=== PATIENT | male | born 1950 | race Caucasian/White ===

== ENCOUNTER 2016-07-21 08:57 | Inpatient (IN) | payer MEDICARE, MEDICAID ==
[~2016-07-21] VITALS: Ht 165.1 cm; Wt 46.5 kg
[~2016-07-21 08:57] MED LIST: /AUGM875TA OR; /WARF25TA PO; ACET500C OR; ACET500C PO; ACET50TAOT PO; ACET65TA OR; ALBUTEROL INH; ARIC10TA OR; ARIC5TAB PO; ARTISOL10 OU; BACT2CRE EX; BAG BALM TOP; CALC600T27 PO; CALCCHW12 PO; CEFT250T8 PO; CEFT500T3 PO; CELE10TA PO; CIPR25SS OR; CLON0.5T OR; CLON0.5T PO; COAL TAR TOP; DOXY100C PO; DULC10SU2 PR; FLEEENE4 PR; LACRI-LUBE OU; LIDO5DIS TOP; LIPI10TA PO; MILKSUS OR; MILKSUS PO; MIRA3350 PO; MIRA33504 PO; MULTCAP PO; MULTIVIT PO; NAME10TA PO; NYST100024 TOP; NYST10PW TOP; OSEL75CA PO; SALINE NASAL SPRAY; SENN8.6C PO; SENN8.6T28 PO; SENO8.6T5 OR; SENO8.6T5 PO; TRAZ100T OR; TRAZ50TA4 PO; TYLE650T30 PO; VANC12CA OR; VIBR100C PO; VIMP50TA3 PO; VIT D 2000 PO; VITA100037 PO; VITA400C OR; VITAMIN D PO; VITAMIN E PO; VITMTA PO; XOPE1.252 IN; [UNRECOGNIZED DRUG - CODE] OU; [UNRECOGNIZED DRUG - OTHER] TOP; anexsia PO; dulcolax PR; fleet PR; namenda PO; senekot PO; vimpat PO
[2016-07-21 09:36] LABS: ABG BASE EXCESS -1.2 (-2.0-2.0); ABG DEVICE NASAL CANN; ABG HCO3 23.5 MEQ/L (22.0-26.0); ABG PARTIAL PRESSURE O2 73.3 mmHg (75.0-100.0); ABG STANDARD HCO3 23.4 MEQ/L (22.0-26.0); ABG TOTAL CO2 24.7 MEQ/L (23.0-31.0); ABG pH (ARTERIAL) 7.397 UNITS (7.350-7.450)
[2016-07-21] MEDS ORDERED: [UNRECOGNIZED DRUG - CODE] OU (10:05)
[2016-07-21] MEDS ORDERED: ACETAMINOPHEN 650 MG SUPP As Ordered ONE (10:08)
--- NOTE | 2016-07-21 10:08 | REP ---
PORTABLE CHEST X-RAY: Single AP view. HISTORY: Hypoxia and cough. Comparison chest x-ray June 14, 2016. FINDINGS: The patient is rotated somewhat to the left. Interstitial markings are increased in both bases similar to the prior study consistent with some degree of interstitial fibrosis. The heart is not enlarged. There is increased density in the right infrahilar region which may be an infiltrate versus mass. There is diffuse osteopenia. Degenerative changes are seen in the shoulders. IMPRESSION: Increased interstitial markings in the bases bilaterally. Fibrosis versus edema. There is increased density in the right infrahilar region as well. Infiltrate versus mass lesion. Signed by Lalit Beard MD 07/21/2016 11:03 A
[2016-07-21] MEDS ORDERED: [UNRECOGNIZED DRUG - OTHER] TOP (10:09)
[2016-07-21] MEDS ORDERED: VITA-122 PO (10:12)
[2016-07-21 10:20] LABS: MEAN CORPUSCULAR HEMOGLOBIN 33.7 pg (27.0-33.0); MEAN CORPUSCULAR HGB CONC 32.5 g/dl (32.0-36.5); MEAN CORPUSCULAR VOLUME 103.5 fl (80.0-96.0); PLATELET COUNT, AUTOMATED 166 k/mm3 (150-450); WHITE BLOOD COUNT 7.5 K/mm3 (4.0-10.0)
[2016-07-21 10:28] LABS: INR 1.02
[2016-07-21 10:36] LABS: ALBUMIN 2.8 GM/DL (3.2-5.2); ALKALINE PHOSPHATASE 61 U/L (45-117); ALT/SGPT 18 U/L (12-78); AMYLASE 47 U/L (25-115); ANION GAP 9 MEQ/L (8-16); AST/SGOT 21 U/L (15-37); BILIRUBIN,DIRECT 0.2 MG/DL (0.0-0.2); BILIRUBIN,TOTAL 0.9 MG/DL (0.2-1.0); BLOOD UREA NITROGEN 17 MG/DL (7-18); CARBON DIOXIDE LEVEL 27 MEQ/L (21-32); CHLORIDE LEVEL 106 MEQ/L (98-107); CREATININE FOR GFR 0.92 MG/DL (0.70-1.30); GLOMERULAR FILTRATION RATE > 60.0 (>49); GLUCOSE, FASTING 100 MG/DL (80-110); POTASSIUM SERUM 3.9 MEQ/L (3.5-5.1); SODIUM LEVEL 142 MEQ/L (136-145); TOTAL PROTEIN 6.3 GM/DL (6.4-8.2)
[2016-07-21] MEDS ORDERED: CEFEPIME INJ 2 GM VIAL (MAXIPIME) (J0692) As Ordered ONE (10:36)
[2016-07-21 10:58] LABS: BANDS 5 % (< 11); BASOPHILS 1 % (0-4)
--- NOTE | 2016-07-21 11:06 | REP ---
CT BRAIN WITHOUT CONTRAST: HISTORY: Altered mental status. Comparison CT study is from March 19, 2014. FINDINGS: Bone window settings show no acute abnormality. There is moderate diffuse cerebral atrophy and concordant ventricular enlargement. There is no evidence of intracranial hemorrhage. No extra-axial fluid collection is seen. No mass, infarct or midline shift is seen. IMPRESSION: Moderate diffuse atrophy. Vascular calcification. No acute intracranial lesion. Signed by Lalit Beard MD 07/21/2016 12:09 P
[2016-07-21] MEDS ORDERED: IPRATROPIUM 0.5MG/ALBUTEROL 2.5MG INH SOL UD 3ML (DUONEB)(J7620) NEB PRN (14:15)
[2016-07-21] MEDS ORDERED: BISACODYL 10 MG SUPP PR PRN (14:15)
[2016-07-21] MEDS ORDERED: MIRALAX *UNIT DOSE* 17GM PACKET PO PRN (14:15)
[2016-07-21] MEDS ORDERED: SENNA 8.6 MG TAB (SENOKOT) PO PRN (14:15)
--- NOTE | 2016-07-21 14:32 | ECGEPIP ---
Stationary ECG Study [facility] - ED Test Date: 2016-07-21 Pat Name: MARY BORJA Department: Room: - Gender: M [employer] 6 Dealer: mary jo : 1950 Requested By: Rose Marie Marquis Order Number: [id number] Reading MD: Baldo Brock Measurements Intervals [place] Rate: 86 P: 78 NH: 137 QRS: -54 QRSD: 75 T: 104 QT: 275 QTc: 329 Interpretive Statements SINUS RHYTHM WITH OCCASIONAL SUPRAVENTRICULAR PREMATURE COMPLEXES LAD LEFT ANTERIOR FASCICULAR BLOCK NONSPECIFIC ST & T-WAVE ABNORMALITY Electronically Signed On 07-21-2016 14:31:34 EST by Baldo Brock
[2016-07-21] MEDS ORDERED: IPRATROPIUM 0.5MG/ALBUTEROL 2.5MG INH SOL UD 3ML (DUONEB)(J7620) As Ordered ONE (14:55)
--- NOTE | 2016-07-21 16:35 | EDDOCDS ---
Nurse's Notes [facility] Name: Mary Broja Age: 65 yrs Sex: Male : 1950 Arrival Date: 07/21/2016 Time: 08:57 Bed 1 Private MD: Jw Esteban Diagnosis: Pneumonia due to other specified bacteria Presentation: 07/21 08:59 Presenting complaint: EMS states: Upon arrival patient was not seizing, has a history ja5 of seizures last one was in 2010. Takes no seizure medications. Patient not responding appropriately. Family stated that seizure lasted 30-40 seconds. Blood sugar 137. No history of diabetes. Adult Sepsis Screening: Patient has new or worsening altered mentation (1 point). Patient has a respiratory rate of greater than or equal to 22 (1 point). Adult Sepsis Screening: Systolic blood pressure is greater than 100. Patient has a qSOFA score of 2. Suicide/Homicide risk assessment- the patient denies having any suicidal and/or homicidal ideations and does not present with any other emotional, behavioral or mental health complaints. Status: Patient is not a director of outpatient services or dependent. Transition of care: patient was received from. 08:59 Acuity: MILKA Level 3 5 08:59 Method Of Arrival: Ambulance ja5 09:08 Adult Sepsis Screening: Systolic blood pressure is less than or equal to 100 (1 point). ja5 Patient has a qSOFA score of 3. 09:24 Acuity: MILKA Level 2 ja5 10:44 Transition of care: patient was received from [facility]. jc4 Triage Assessment: 09:14 General: Appears distressed, Behavior is restless. Pain: Unable to use pain scale. ja5 FLACC scale score is 0 out of 10. Pt Declines HIV testing. Neurological: Level of Consciousness is post ictal, Oriented to none. Cardiovascular: Rhythm is sinus rhythm. Respiratory: Airway is patent Respiratory effort is labored, gasping. Derm: Skin is dry, Skin is pale. Historical: - Allergies: PENICILLINS; Erythromycin; Sudafed; Aspirin; Adhesives; antihistimines; - Home Meds: 1. Vimpat 50 mg oral tab 1 tab 2 times per day (Last dose: 07/20/2016 07:00) 2. Dulcolax (bisacodyl) 10 mg Rectal supp 1 suppository as needed day 4 wiht no BM (Last dose: Unknown) 3. fleet enema day 5 with no BM (Last dose: Unknown) 4. Milk of Magnesia Oral q3 days as needed (Last dose: Unknown) 5. Bag [place] as needed for excoriations (Last dose: Unknown) - PMHx: senile dementia; expressive language disorder; COPD; Down's Syndrome; high myopia; raynauds disease; Seizure Disorder; profound MR; Degenerative disc disease; - Social history: Smoking status: unknown if patient ever smoked tobacco. non-verbal. - Family history: Not pertinent. - : The pt / caregiver states he / she is not on anticoagulants. Home medication list is obtained from the facility AUG. - Exposure Risk Screening:: None identified. Screenin:30 Screening information is obtained from residence staff. Fall risk: At risk due to ja5 apparent cognitive impairment. Assistance ADL's: Requires assistance with meal preparation, this assistance is provided by residence staff, bathing, assistance is provided by residence staff, dressing, assistance is provided by residence staff, toileting, assistance is provided by residence staff, ambulation, assistance is provided by residence staff, housework, assistance is provided by residence staff, medication administration, assistance is provided by residence staff. Abuse/DV Screen: The patient / caregiver reports he/she is: pt cannot be assessed for living situation at this time. Nutritional screening: On heart healthy, pureed. Advance Directives: Currently, there is no health care proxy. There is no active DNR order. There is no living will. There is no Power of Associate Project Manager. home support is adequate. Assessment: 09:25 General: Appears distressed, Behavior is restless. Neurological: Level of Consciousness ja5 is post ictal, Oriented to none. Cardiovascular: Pulses Rhythm is sinus rhythm No ectopy. Respiratory: Airway is patent Respiratory effort is labored, Breath sounds are coarse bilaterally. Breath sounds with rhonchi bilaterally. Derm: Skin is dry, Skin is pale. 09:27 General: non destructive evaluation technician at bedside for ABG. jc4 11:07 General: Patient is resting in stretcher, respirations are not as labored at this time. ja5 IV cefepime is running, 100ml NS IV bolus has been administered, Dr. Marquis has been notified of blood pressure trends. Patients is non verbal which rehab staff has stated is normal for him.. 12:20 General: Patient resting in stretcher, appears to be comfortable, respirations are even ja5 and deep. Temperature is 100.0F temporal at this time.. 13:18 General: Patient is resting in stretcher, respirations are even and deep with audible ja5 crackles. Patient opens eyes when I talk to him. He was repositioned in bed and appears to be comfortable at this time.. 14:03 General: General: Pt repositioned on stretcher, head elevated. Respiratory rate 32/min, jc4 SaO2-85-88%. Oxygen titrated, patient placed on 50% Venti-Mask, SaO2 increased to 93-94%. Dr. Oden updated on patient condition. 16:30 General: Patient in stretcher, color is pink, on venturi mask 50% WITH O2 sat 02%, ja5 breath sounds are still coarse and wet at a rate of 32. Patient was repositioned as he is restless in stretcher.Patient being transferred to room.. Vital Signs: 09:12 BP 91 / 51; Pulse 86; Resp 26; Temp 100.7(TE); Pulse Ox 93% on 6 lpm NC; Weight 45.81 ct3 kg (M); 10:11 Pulse 88 MON; Pulse Ox 94% ; ja5 10:12 BP 94 / 51 (auto/); ja5 10:14 Pulse 90 MON; Pulse Ox 94% ; ja5 10:15 BP 91 / 53 (auto/); ja5 10:29 Pulse 85 MON; Pulse Ox 93% ; ja5 10:30 BP 89 / 58 (auto/); ja5 10:44 Pulse 92 MON; Pulse Ox 100% ; ja5 10:45 BP 92 / 56 (auto/); ja5 10:59 Pulse 96 MON; Pulse Ox 96% ; ja5 11:00 BP 100 / 59 (auto/); ja5 11:14 Pulse 87 MON; Pulse Ox 95% ; ja5 11:15 BP 103 / 61 (auto/); ja5 11:26 Temp 100.2(TE); ja5 11:29 Pulse 97 MON; Pulse Ox 95% ; ja5 11:30 BP 89 / 64 (auto/); ja5 11:44 Pulse 93 MON; Pulse Ox 97% ; ja5 11:45 BP 90 / 55 (auto/); ja5 11:59 Pulse 92 MON; Pulse Ox 95% ; ja5 12:00 BP 93 / 55 (auto/); ja5 12:14 Pulse 95 MON; Pulse Ox 96% ; ja5 12:15 BP 94 / 62 (auto/); ja5 12:30 BP 94 / 68 (auto/); jc4 12:30 Pulse 97 MON; Pulse Ox 97% ; jc4 12:44 Pulse 95 MON; Pulse Ox 96% ; jc4 12:45 BP 91 / 52 (auto/); jc4 13:00 BP 81 / 54 (auto/); jc4 13:00 Pulse 90 MON; Pulse Ox 96% ; jc4 13:13 BP 127 / 61 (auto/); jc4 13:13 Pulse 94 MON; Pulse Ox 96% ; jc4 13:14 Pulse 97 MON; Pulse Ox 95% ; jc4 13:15 BP 88 / 58 (auto/); jc4 13:17 BP 127 / 61; Pulse 97; Resp 32; Pulse Ox 95% ; Pain 0/10; ja5 13:30 BP 103 / 56 (auto/); jc4 13:30 Pulse 94 MON; jc4 13:55 Pulse 90 MON; Pulse Ox 93% ; jc4 13:57 Pulse 92 MON; Pulse Ox 92% ; jc4 13:57 BP 103 / 67 (auto/); jc4 14:00 BP 97 / 64 (auto/); jc4 14:15 BP 97 / 61 (auto/); jc4 14:18 Pulse 86 MON; Pulse Ox 94% ; jc4 14:29 Pulse 89 MON; Pulse Ox 96% ; jc4 14:30 BP 96 / 62 (auto/); jc4 14:44 Pulse 93 MON; Pulse Ox 95% ; jc4 14:45 BP 93 / 65 (auto/); jc4 15:00 BP 100 / 67 (auto/); jc4 15:02 Pulse 91 MON; Pulse Ox 95% ; jc4 15:15 BP 101 / 68 (auto/); jc4 15:15 Pulse 97 MON; Pulse Ox 94% ; jc4 15:28 Pulse 91 MON; Pulse Ox 92% ; jc4 15:30 BP 100 / 67 (auto/); jc4 15:45 BP 110 / 61 (auto/); jc4 15:47 Pulse 93 MON; Pulse Ox 92% ; jc4 16:08 BP 107 / 62; Pulse 93; Resp 28; Temp 100.4(TE); Pulse Ox 93% on 50% Venturi mask; jc4 16:32 BP 107 / 59; Pulse 93; Resp 28; Pulse Ox 92% on 50% Venturi mask; jc4 Vitals: 09:12 Log In Time N/A - ambulance arrival. ct3 ED Course: 08:58 Patient visited by Savannah Chopra PCA. ar3 08:58 Patient moved to Waiting ar3 08:59 Agnieszka Lujan,MANDEEP is Primary Nurse. ar3 08:59 Jazmine Markham, MANDEEP is Primary Nurse. ar3 08:59 Jw Esteban MD is Private Physician. ar3 08:59 Patient moved to 5 ar3 09:04 Patient moved to 1 [facility] 09:04 The patient / caregiver is instructed regarding the plan of care and ED course. Seizure jc4 precautions initiated. 09:05 Rose Marie Marquis MD is Attending Physician. sd1 09:05 Patient visited by Rose Marie Marquis MD. sd1 09:05 Triage Initiated ja5 09:12 Patient has correct armband on for positive identification. Bed in low position. Side ct3 rails up X2. pvc monitor on. Pulse ox on. NIBP on. 09:24 Portable x-ray done. jc4 09:33 Patient visited by Agnieszka Lujan RN. ja5 09:34 -Arterial Blood Gas Sent. ac1 09:38 Inserted saline lock: 18 gauge in left forearm The patient tolerated the procedure well.jc4 10:10 Chest, 1 View Returned. EDMS 10:12 [facility] Payment Agreement was scanned into [employer] and attached to record. mpb 10:32 Patient visited by Lacey Wallis PCA. ct3 10:32 Maintain field IV. Dressing intact. Site clean & dry. Gauge & site: 18g Left FA. Fortune ja5 cath inserted 16 Fr. Balloon inflated. To gravity drainage. Urine specimen collected. Patient tolerated well. 10:47 DIFFERENTIAL NO CHARGE Sent. jc4 10:52 Patient visited by Agnieszka Lujan RN. ja5 11:07 Chest, 1 View Returned. EDMS 11:07 CT Head Without Contrast Returned. EDMS 11:09 Alexandru Oden MD is Hospitalizing Provider. sd1 12:23 Patient visited by Agnieszka Lujan RN. ja5 13:57 T-Sheet-- Draft Copy was scanned into [employer] and attached to record. klr 14:46 EKG-ADULT Returned. EDMS 16:33 No procedures done that require assistance. jc4 Administered Medications: 09:13 Drug: NS 0.9% 1000 ml [sodium chloride 0.9 % intravenous solution] Route: IV; Rate: jc4 bolus; Site: left forearm; 10:00 Follow up: IV Status: Completed infusion; IV Intake: 1000ml jc4 10:26 Drug: Acetaminophen 650 mg [acetaminophen 650 mg rectal suppository (1 supp)] Route: VT;ja5 11:26 Follow up: Temp 100.2 Temporal ja5 10:51 Drug: Cefepime 2 grams [cefepime 2 gram solution for injection] Route: IVPB; Rate: 100 ja5 mL/hr; Infused Over: 30 mins; Site: right forearm; 11:22 Follow up: IV Status: Completed infusion; IV Intake: 50ml jc4 Intake: 10:00 IV: 1000.00ml; Total: 1000.00ml. jc4 11:22 IV: 50.00ml; Total: 1050.00ml. jc4 Output: 16:30 Urine: 500.00ml (Fortune); Total: 500.00ml. ja5 RT: 09:34 ABG's drawn from right brachial artery pressure held for 5 minutes no bleeding noted ac1 pressure bandage applied specimen sent pt. tolerated poorly. Order Results: Lab Order: -Arterial Blood Gas; SPEC'M 07/21/16 09:21 Test: ABG pH (ARTERIAL); Value: 7.397; Range: 7.350-7.450; Units: UNITS; Status: F Test: ABG PARTIAL PRESSURE CO2; Value: 39.0; Range: 35.0-45.0; Units: mmHg; Status: F Test: ABG PARTIAL PRESSURE O2; Value: 73.3; Range: 75.0-100.0; Abnormal: Below low normal; Units: mmHg; Status: F Test: ABG TOTAL CO2; Value: 24.7; Range: 23.0-31.0; Units: MEQ/L; Status: F Test: ABG HCO3; Value: 23.5; Range: 22.0-26.0; Units: MEQ/L; Status: F Test: ABG BASE EXCESS; Value: -1.2; Range: -2.0-2.0; Status: F Test: ABG STANDARD HCO3; Value: 23.4; Range: 22.0-26.0; Units: MEQ/L; Status: F Test: ABG O2 SATURATION; Value: 94.5; Range: 95.0-99.0; Abnormal: Below low normal; Units: %; Status: F Test: ABG DEVICE; Value: NASAL SHIRA; Status: F Lab Order: Amylase; SPEC'07/21/16 10:07 Test: AMYLASE; Value: 47; Range: 25-115; Units: U/L; Status: F Lab Order: C Reactive Protein; SPEC07/21/16 10:07 Test: C REACTIVE PROTEIN QUANTITATIV; Value: 8.52; Range: 0.00-0.30; Abnormal: Above high normal; Units: MG/DL; Status: F Lab Order: CBC with Diff; SPEC07/21/16 10:06 Test: WHITE BLOOD COUNT; Value: 7.5; Range: 4.0-10.0; Units: K/mm3; Status: F Test: RED BLOOD COUNT; Value: 3.79; Range: 4.30-6.10; Abnormal: Below low normal; Units: M/mm3; Status: F Test: HEMOGLOBIN; Value: 12.8; Range: 14.0-18.0; Abnormal: Below low normal; Units: g/dl; Status: F Test: HEMATOCRIT; Value: 39.3; Range: 42.0-52.0; Abnormal: Below low normal; Units: %; Status: F Test: MEAN CORPUSCULAR VOLUME; Value: 103.5; Range: 80.0-96.0; Abnormal: Above high normal; Units: fl; Status: F Test: MEAN CORPUSCULAR HEMOGLOBIN; Value: 33.7; Range: 27.0-33.0; Abnormal: Above high normal; Units: pg; Status: F Test: MEAN CORPUSCULAR HGB CONC; Value: 32.5; Range: 32.0-36.5; Units: g/dl; Status: F Test: RED CELL DISTRIBUTION WIDTH; Value: 14.0; Range: 11.5-14.5; Units: %; Status: F Test: PLATELET COUNT, AUTOMATED; Value: 166; Range: 150-450; Units: k/mm3; Status: F Test: NEUTROPHILS; Value: 91; Range: 35-75; Abnormal: Above high normal; Units: %; Status: F Test: BANDS; Value: 5; Range: < 11; Units: %; Status: F Test: LYMPHOCYTES; Value: 2; Range: 16-52; Abnormal: Below low normal; Units: %; Status: F Test: MONOCYTES; Value: 1; Range: 0-8; Units: %; Status: F Test: BASOPHILS; Value: 1; Range: 0-4; Units: %; Status: F Test: MACROCYTOSIS; Value: 1+; Status: F Lab Order: Lactic Acid (Lewis tube on ice); [facility] 07/21/16 10:07 Test: LACTIC ACID SEPSIS PROTOCOL; Value: 1.9; Range: 0.4-2.0; Units: MMOL/L; Status: F Lab Order: Liver Profile; 07/21/16 10:07 Test: AST/SGOT; Value: 21; Range: 15-37; Units: U/L; Status: F Test: ALT/SGPT; Value: 18; Range: 12-78; Units: U/L; Status: F Test: ALKALINE PHOSPHATASE; Value: 61; Range: 45-117; Units: U/L; Status: F Test: BILIRUBIN,TOTAL; Value: 0.9; Range: 0.2-1.0; Units: MG/DL; Status: F Test: BILIRUBIN,DIRECT; Value: 0.2; Range: 0.0-0.2; Units: MG/DL; Status: F Test: TOTAL PROTEIN; Value: 6.3; Range: 6.4-8.2; Abnormal: Below low normal; Units: GM/DL; Status: F Test: ALBUMIN; Value: 2.8; Range: 3.2-5.2; Abnormal: Below low normal; Units: GM/DL; Status: F Test: ALBUMIN/GLOBULIN RATIO; Value: 0.80; Range: 1.00-1.93; Abnormal: Below low normal; Status: F Lab Order: MED Profile; SPEC'07/21/16 10:07 Test: GLUCOSE, FASTING; Value: 100; Range: 80-110; Units: MG/DL; Status: F Test: BLOOD UREA NITROGEN; Value: 17; Range: 7-18; Units: MG/DL; Status: F Test: CREATININE FOR GFR; Value: 0.92; Range: 0.70-1.30; Units: MG/DL; Status: F Test: GLOMERULAR FILTRATION RATE; Value: > 60.0; Range: >49; Status: F Test: SODIUM LEVEL; Value: 142; Range: 136-145; Units: MEQ/L; Status: F Test: POTASSIUM SERUM; Value: 3.9; Range: 3.5-5.1; Units: MEQ/L; Status: F Test: CHLORIDE LEVEL; Value: 106; Range: 98-107; Units: MEQ/L; Status: F Test: CARBON DIOXIDE LEVEL; Value: 27; Range: 21-32; Units: MEQ/L; Status: F Test: ANION GAP; Value: 9; Range: 8-16; Units: MEQ/L; Status: F Test: CALCIUM LEVEL; Value: 8.0; Range: 8.8-10.2; Abnormal: Below low normal; Units: MG/DL; Status: F Test Note: ; Units are mL/min/1.73 m2 Chronic Kidney Disease Staging per NKF: Stage I & II GFR >=60 Normal to Mildly Decreased Stage III GFR 30-59 Moderately Decreased Stage IV GFR 15-29 Severely Decreased Stage V GFR <15 Very Little GFR Left ESRD GFR <15 on TIRE SERVICE TECHNICIAN Lab Order: PT/INR; SPEC'M 07/21/16 10:07 Test: PROTHROMBIN TIME; Value: 13.5; Range: 12.3-14.5; Units: SECONDS; Status: F Test: INR; Value: 1.02; Status: F Test Note: ; THERAPUTIC HUMAN INR VALUES INDICATIONS NORMAL RANGES PROPHYLAXIS/TREATMENT OF: VENOUS THROMBOSIS 2.0-3.0 PULMONARY EMBOLISM 2.0-3.0 PREVENTION OF SYSTEMIC EMBOLISM FROM: TISSUE HEART VALVES 2.0-3.0 ACUTE MYOCARDIAL INFARCTION 2.0-3.0 VALVULAR HEART DISEASE 2.0-3.0 ATRIAL FIBRILLATION 2.0-3.0 MECHANICAL VALVES(HIGH RISK) 2.5-3.5 RECURRENT MYOCARDIAL INFARCTION 2.5-3.5 Lab Order: PTT; [facility] 07/21/16 10:07 Test: PARTIAL THROMBOPLASTIN TIME; Value: 28.2; Range: 26.6-37.1; Units: SECONDS; Status: F Lab Order: Type & Screen; [facility] 07/21/16 10:06 Test: BLOOD TYPE; Value: O POS; Status: F Test: AB SCREEN (INDIRECT LUDIVINA)GEL; Value: NEGATIVE; Status: F Lab Order: Urinalysis; [facility] 07/21/16 10:15 Test: APPEARANCE, URINE; Value: HAZY; Range: CLEAR; Status: F Test: COLOR, URINE; Value: YELLOW; Range: YELLOW; Status: F Test: PH,URINE; Value: 6.0; Range: 5.0-9.0; Units: UNITS; Status: F Test: SPECIFIC GRAVITY URINE AUTO; Value: 1.014; Range: 1.002-1.035; Status: F Test: PROTEIN, URINE AUTO; Value: NEGATIVE; Range: NEGATIVE; Units: mg/dL; Status: F Test: GLUCOSE, URINE (UA) AUTO; Value: NEGATIVE; Range: NEGATIVE; Units: mg/dL; Status: F Test: KETONE, URINE AUTO; Value: NEGATIVE; Range: NEGATIVE; Units: mg/dL; Status: F Test: UROBILINOGEN, URINE AUTO; Value: 0.2; Range: 0.0-2.0; Units: mg/dL; Status: F Test: BILIRUBIN, URINE AUTO; Value: NEGATIVE; Range: NEGATIVE; Status: F Test: NITRITE, URINE AUTO; Value: NEGATIVE; Range: NEGATIVE; Status: F Test: LEUKOCYTE ESTERASE, URINE AUTO; Value: 1+; Range: NEGATIVE; Abnormal: Above high normal; Status: F Test: BLOOD, URINE BLOOD; Value: NEGATIVE; Range: NEGATIVE; Status: F Test: WBC, URINE AUTO; Value: 15; Range: 0-3; Abnormal: Above high normal; Units: /HPF; Status: F Test: RBC, URINE AUTO; Value: 5; Range: 0-3; Abnormal: Above high normal; Units: /HPF; Status: F Test: BACTERIA, URINE AUTO; Value: 1+; Range: NEGATIVE; Abnormal: Above high normal; Status: F Test: SQUAMOUS EPITHELIAL CELL UR AU; Value: 0; Range: 0-6; Units: /HPF; Status: F Test: MUCUS, URINE; Value: SMALL; Range: NEGATIVE; Status: F Test: HYALINE CAST, URINE AUTO; Value: 0; Range: 0-1; Units: /LPF; Status: F Lab Order: -Influenza A&B Rapid Antigen - Nose; SPEC'M 07/21/16 09:59 Test: INFLUENZA A RAPID SCR by ICA; Value: INFLUENZA A RESULTS NEGATIVE; Status: F Test: INFLUENZA A RAPID SCR by ICA; Value: Comments:; Status: F Test: INFLUENZA B RAPID SCR by ICA; Value: INFLUENZA B RESULTS NEGATIVE; Status: F Test Note: ; The Influenza test is a direct rapid immunoassay for the qualitative detection of Influenza viral antigen. Cell culture (Viral Culture) testing should be considered to confirm NEGATIVE results and to assist in detecting other viruses that can provide similar clinical symptoms. Please contact the lab within 24 hours ([phone]) if confirmatory testing is desired. Lab Order: BNP; SPEC'M 07/21/16 10:07 Test: BRAIN NATRIURETIC PEPTIDE; Value: 186; Range: <100; Abnormal: Above high normal; Units: PG/ML; Status: F Lab Order: PLATELET ESTIMATE; SPEC'M 07/21/16 10:06 Test: PLATELET ESTIMATE; Value: NORMAL; Range: NORMAL; Status: F Radiology Order: Chest, 1 View Test: Chest, 1 View REASON FOR EXAMINATION: hypoxia cough; PORTABLE CHEST X-RAY: Single AP view.; ; HISTORY: Hypoxia and cough.; ; Comparison chest x-ray June 14, 2016.; ; FINDINGS: The patient is rotated somewhat to the left. Interstitial markings; are increased in both bases similar to the prior study consistent with some; degree of interstitial fibrosis. The heart is not enlarged. There is increased; density in the right infrahilar region which may be an infiltrate versus mass.; There is diffuse osteopenia. Degenerative changes are seen in the shoulders.; ; IMPRESSION:; ; Increased interstitial markings in the bases bilaterally. Fibrosis versus edema.; There is increased density in the right infrahilar region as well. Infiltrate; versus mass lesion.; ; ; Signed by; Lalit Beard MD 07/21/2016 11:03 A; Radiology Order: EKG-ADULT Test: EKG-ADULT REASON FOR EXAMINATION: weaknes; Stationary ECG Study; [facility] - ED; ; Test Date: 2016-07-21; Pat Name: MARY BORJA Department:; Room: -; Gender: M Grinder Set Up Operator Internal: lr; : 1950 Requested By: Rose Marie Marquis; Order Number: [id number] Reading MD: Baldo Brock; Measurements; Intervals Friend; Rate: 86 P: 78; VT: 137 QRS: -54; QRSD: 75 T: 104; QT: 275; QTc: 329; Interpretive Statements; SINUS RHYTHM WITH OCCASIONAL SUPRAVENTRICULAR PREMATURE COMPLEXES; LAD; LEFT ANTERIOR FASCICULAR BLOCK; NONSPECIFIC ST T-WAVE ABNORMALITY; ; Electronically Signed On 07-21-2016 14:31:34 EST by Baldo Brock; Radiology Order: CT Head Without Contrast Test: CT Head Without Contrast REASON FOR EXAMINATION: altered mental status; CT BRAIN WITHOUT CONTRAST:; ; HISTORY: Altered mental status.; ; Comparison CT study is from March 19, 2014.; ; FINDINGS: Bone window settings show no acute abnormality. There is moderate; diffuse cerebral atrophy and concordant ventricular enlargement. There is no; evidence of intracranial hemorrhage. No extra-axial fluid collection is seen.; No mass, infarct or midline shift is seen.; ; IMPRESSION: Moderate diffuse atrophy. Vascular calcification. No acute; intracranial lesion.; ; ; Signed by; Lalit Beard MD 07/21/2016 12:09 P; Outcome: 11:09 Decision to Hospitalize by Provider. sd1 16:33 Discharge Assessment: patient administered narcotics - no. The following High Risk [facility] Discharge criteria are identified: None. Admitted to PCU accompanied by nurse, accompanied by tech, via stretcher, with oxygen, on monitor, with chart. Condition: stable. No special radiology studies were completed. Admission hand-off: Report Faxed Fax receipt verified by Aditya. Property :Personal belongings accompany Pt. 16:35 Patient left the ED. ar3 Signatures: Dispatcher [employer] EDRose Marie Wade MD MD sd1 Dora Espinosa RN RN Zeynep Raya,RT RT ac1 Savannah Chopra, CARGO INSPECTOR CARGO INSPECTOR ar3 Jazmine Markham RN RN jc4 Lacey Wallis, CARGO INSPECTOR CARGO INSPECTOR ct3 Vazquez, Anjum, Reg Reg mpb Harleen Espinoza JessicaRN RN ja5 Corrections: (The following items were deleted from the chart) 14:14 14:03 General: jc4 jc4 14:17 14:03 General: jc4 jc4 16:12 16:08 BP 107 / 62; Pulse 93bpm; Pulse Ox 93% 02 50% Venturi mask; Temp 100.4F Temporal; jc4 jc4 MTDD
--- NOTE | 2016-07-21 16:35 | EDDOCDS ---
Physician Documentation [facility] Name: Scott Kumari Age: 65 yrs Sex: Male : 1950 Arrival Date: 07/21/2016 Time: 08:57 Bed 1 Private MD: Jw Esteban Disposition: 07/21/16 11:09 Hospitalization ordered by Alexandru Oden for Inpatient Admission. Preliminary diagnosis is Pneumonia due to other specified bacteria. - Bed requested for PCU. - Status is Inpatient Admission. ar3 - Condition is Stable. - Problem is new. - Symptoms have improved. Historical: - Allergies: PENICILLINS; Erythromycin; Sudafed; Aspirin; Adhesives; antihistimines; - Home Meds: 1. Vimpat 50 mg oral tab 1 tab 2 times per day (Last dose: 07/20/2016 07:00) 2. Dulcolax (bisacodyl) 10 mg Rectal supp 1 suppository as needed day 4 wiht no BM (Last dose: Unknown) 3. fleet enema day 5 with no BM (Last dose: Unknown) 4. Milk of Magnesia Oral q3 days as needed (Last dose: Unknown) 5. Bag [place] as needed for excoriations (Last dose: Unknown) - PMHx: senile dementia; expressive language disorder; COPD; Down's Syndrome; high myopia; raynauds disease; Seizure Disorder; profound MR; Degenerative disc disease; - Social history: Smoking status: unknown if patient ever smoked tobacco. non-verbal. - Family history: Not pertinent. - : The pt / caregiver states he / she is not on anticoagulants. Home medication list is obtained from the facility AUG. - Exposure Risk Screening:: None identified. Vital Signs: 07/21 09:12 BP 91 / 51; Pulse 86; Resp 26; Temp 100.7(TE); Pulse Ox 93% on 6 lpm NC; Weight 45.81 ct3 kg / 100.99 lbs (M); 10:11 Pulse 88 MON; Pulse Ox 94% ; ja5 10:12 BP 94 / 51 (auto/); ja5 10:14 Pulse 90 MON; Pulse Ox 94% ; ja5 10:15 BP 91 / 53 (auto/); ja5 10:29 Pulse 85 MON; Pulse Ox 93% ; ja5 10:30 BP 89 / 58 (auto/); ja5 10:44 Pulse 92 MON; Pulse Ox 100% ; ja5 10:45 BP 92 / 56 (auto/); ja5 10:59 Pulse 96 MON; Pulse Ox 96% ; ja5 11:00 BP 100 / 59 (auto/); ja5 11:14 Pulse 87 MON; Pulse Ox 95% ; ja5 11:15 BP 103 / 61 (auto/); ja5 11:26 Temp 100.2(TE); ja5 11:29 Pulse 97 MON; Pulse Ox 95% ; ja5 11:30 BP 89 / 64 (auto/); ja5 11:44 Pulse 93 MON; Pulse Ox 97% ; ja5 11:45 BP 90 / 55 (auto/); ja5 11:59 Pulse 92 MON; Pulse Ox 95% ; ja5 12:00 BP 93 / 55 (auto/); ja5 12:14 Pulse 95 MON; Pulse Ox 96% ; ja5 12:15 BP 94 / 62 (auto/); ja5 12:30 BP 94 / 68 (auto/); jc4 12:30 Pulse 97 MON; Pulse Ox 97% ; jc4 12:44 Pulse 95 MON; Pulse Ox 96% ; jc4 12:45 BP 91 / 52 (auto/); jc4 13:00 BP 81 / 54 (auto/); jc4 13:00 Pulse 90 MON; Pulse Ox 96% ; jc4 13:13 BP 127 / 61 (auto/); jc4 13:13 Pulse 94 MON; Pulse Ox 96% ; jc4 13:14 Pulse 97 MON; Pulse Ox 95% ; jc4 13:15 BP 88 / 58 (auto/); jc4 13:17 BP 127 / 61; Pulse 97; Resp 32; Pulse Ox 95% ; Pain 0/10; ja5 13:30 BP 103 / 56 (auto/); jc4 13:30 Pulse 94 MON; jc4 13:55 Pulse 90 MON; Pulse Ox 93% ; jc4 13:57 Pulse 92 MON; Pulse Ox 92% ; jc4 13:57 BP 103 / 67 (auto/); jc4 14:00 BP 97 / 64 (auto/); jc4 14:15 BP 97 / 61 (auto/); jc4 14:18 Pulse 86 MON; Pulse Ox 94% ; jc4 14:29 Pulse 89 MON; Pulse Ox 96% ; jc4 14:30 BP 96 / 62 (auto/); jc4 14:44 Pulse 93 MON; Pulse Ox 95% ; jc4 14:45 BP 93 / 65 (auto/); jc4 15:00 BP 100 / 67 (auto/); jc4 15:02 Pulse 91 MON; Pulse Ox 95% ; jc4 15:15 BP 101 / 68 (auto/); jc4 15:15 Pulse 97 MON; Pulse Ox 94% ; jc4 15:28 Pulse 91 MON; Pulse Ox 92% ; jc4 15:30 BP 100 / 67 (auto/); jc4 15:45 BP 110 / 61 (auto/); jc4 15:47 Pulse 93 MON; Pulse Ox 92% ; jc4 16:08 BP 107 / 62; Pulse 93; Resp 28; Temp 100.4(TE); Pulse Ox 93% on 50% Venturi mask; jc4 16:32 BP 107 / 59; Pulse 93; Resp 28; Pulse Ox 92% on 50% Venturi mask; jc4 MDM: 09:06 Acetaminophen Suppository 650 mg KS once ordered. sd1 09:06 -Blood Culture (Adults Only), peripheral from different site, or from device/port/PICC sd1 etc. if present ordered. 09:06 Call Respiratory ordered. sd1 09:06 Jump Roll Operator/Pulse Ox/q 15 min VS ordered. sd1 09:06 Large bore IV x 2 ordered. sd1 09:06 Oxygen at 4L/Min NC or Home dosage ordered. sd1 09:06 Intake and Output Hourly ordered. sd1 09:06 NS 0.9% 1000 ml IV at bolus once ordered. sd1 09:06 -Arterial Blood Gas Ordered. EDMS 09:06 -Blood Culture Ordered. EDMS 09:06 Amylase Ordered. EDMS 09:06 C Reactive Protein Ordered. EDMS 09:06 CBC with Diff Ordered. EDMS 09:06 Lactic Acid (Lewis tube on ice) Ordered. EDMS 09:06 Liver Profile Ordered. EDMS 09:06 MED Profile Ordered. EDMS 09:06 PT/INR Ordered. EDMS 09:07 PTT Ordered. EDMS 09:07 Type & Screen Ordered. EDMS 09:07 Urinalysis Ordered. EDMS 09:07 Urine Culture Ordered. EDMS 09:08 Chest, 1 View Ordered. EDMS 09:08 ECG WITH READING ER PHYS+CARDIAG ordered. EDMS 09:13 Call Respiratory complete. jc4 09:14 -Influenza A&B Rapid Antigen - Nose Ordered. EDMS 09:35 CT Head Without Contrast Ordered. EDMS 09:36 BED REQUEST+ADM ordered. EDMS 09:38 Cefepime 2 grams IVPB at 100 mL/hr once over 30 mins; dilute in 50mL of NS or D5W sd1 ordered. 09:41 -Arterial Blood Gas Reviewed. sd1 09:43 BNP Ordered. EDMS 09:44 -Blood Culture (Adults Only), peripheral from different site, or from device/port/PICC ar3 etc. if present complete. 09:44 BLOOD CULTURES Ordered. EDMS 10:11 Financial registration complete. mpb 10:12 [facility] Payment Agreement was scanned into [email or web address] and attached to record. mpb 10:22 DIFFERENTIAL NO CHARGE Ordered. EDMS 10:22 PLATELET ESTIMATE Ordered. EDMS 10:39 C Reactive Protein Reviewed. sd1 10:39 CBC with Diff Reviewed. sd1 10:39 Liver Profile Reviewed. sd1 10:39 MED Profile Reviewed. sd1 10:39 Amylase Reviewed. sd1 10:39 Lactic Acid (Lewis tube on ice) Reviewed. sd1 10:39 PT/INR Reviewed. sd1 10:39 PTT Reviewed. sd1 10:39 Type & Screen Reviewed. sd1 10:39 -Influenza A&B Rapid Antigen - Nose Reviewed. sd1 10:39 Chest, 1 View Reviewed. sd1 10:51 Urinalysis Reviewed. sd1 10:51 BNP Reviewed. sd1 13:48 Admission / Observation Status ordered. EDMS 13:57 T-Sheet-- Draft Copy was scanned into [email or web address] and attached to record. klr 14:12 RESPIRATORY PANEL Ordered. EDMS Administered Medications: 09:13 Drug: NS 0.9% 1000 ml [sodium chloride 0.9 % intravenous solution] Route: IV; Rate: jc4 bolus; Site: left forearm; 10:00 Follow up: IV Status: Completed infusion; IV Intake: 1000ml jc4 10:26 Drug: Acetaminophen 650 mg [acetaminophen 650 mg rectal suppository (1 supp)] Route: KS;ja5 11:26 Follow up: Temp 100.2 Temporal ja5 10:51 Drug: Cefepime 2 grams [cefepime 2 gram solution for injection] Route: IVPB; Rate: 100 ja5 mL/hr; Infused Over: 30 mins; Site: right forearm; 11:22 Follow up: IV Status: Completed infusion; IV Intake: 50ml jc4 Signatures: Dispatcher [employer] Rose Marie Acevedo MD MD sd1 Dora Espinosa RN RN luis felipej Savannah Chopra, RADIO PERSONALITY RADIO PERSONALITY ar3 Jazmine Markham RN RN jc4 Ev David RN RN [facility] Anjum Vazquez, Reg Reg mpHarleen Hager Jessica, RN RN ja5 The chart was reviewed and I authenticate all verbal orders and agree with the evaluation and treatment provided.Corrections: (The following items were deleted from the chart) 11 09:06 Set up for triple lumen central Iine placement ordered. sd1 ja5 Attachments: 10:12 [facility] Payment Agreement mpb 13:57 T-Sheet-- Draft Copy kl [email or web address]
[2016-07-21 16:53] VITALS: BP 115/69
[2016-07-21] MEDS: methylPREDNISolone INJ 125 MG/2 ML VIAL (J2930) IV SCH (17:08)
[2016-07-21] MEDS: KCL 20MEQ in NS 1000ML 1,000 ML IV SCH (17:08)
[2016-07-21] MEDS: IPRATROPIUM 0.5MG/ALBUTEROL 2.5MG INH SOL UD 3ML (DUONEB)(J7620) NEB SCH (20:01)
[2016-07-21 20:20] VITALS: BP 125/58
[2016-07-21] MEDS ORDERED: traZODone 50 MG TAB PO SCH (21:00)
[2016-07-21] MEDS: ENOXAPARIN 40 MG/0.4 ML SYRINGE (J1650) SC SCH (22:14)
[2016-07-21] MEDS: CEFEPIME HCL 2 GM in D5W MINI-BAG PLUS 50 ML IV SCH (22:15)
[2016-07-21] MEDS: LACOSAMIDE 50 MG TAB (VIMPAT) PO SCH (22:15)
[2016-07-21 23:59] VITALS: BP 102/63
[2016-07-22] VITALS (25 sets, daily range): BP systolic 79–123; BP diastolic 49–76
[2016-07-22] MEDS: KCL 20MEQ in NS 1000ML 1,000 ML IV SCH ×4 (01:00→23:58)
[2016-07-22] MEDS: IPRATROPIUM 0.5MG/ALBUTEROL 2.5MG INH SOL UD 3ML (DUONEB)(J7620) NEB SCH ×3 (01:55→13:34)
[2016-07-22 05:23] LABS: MEAN CORPUSCULAR HEMOGLOBIN 34.1 pg (27.0-33.0); MEAN CORPUSCULAR HGB CONC 33.4 g/dl (32.0-36.5); MEAN CORPUSCULAR VOLUME 101.9 fl (80.0-96.0); RED CELL DISTRIBUTION WIDTH 14.2 % (11.5-14.5); WHITE BLOOD COUNT 12.4 K/mm3 (4.0-10.0)
[2016-07-22 05:29] LABS: ANION GAP 8 MEQ/L (8-16); BLOOD UREA NITROGEN 21 MG/DL (7-18); CARBON DIOXIDE LEVEL 26 MEQ/L (21-32); CHLORIDE LEVEL 109 MEQ/L (98-107); CREATININE FOR GFR 0.93 MG/DL (0.70-1.30); GLOMERULAR FILTRATION RATE > 60.0 (>49); GLUCOSE, FASTING 128 MG/DL (80-110); POTASSIUM SERUM 4.2 MEQ/L (3.5-5.1); SODIUM LEVEL 143 MEQ/L (136-145)
[2016-07-22] MEDS: methylPREDNISolone INJ 125 MG/2 ML VIAL (J2930) IV SCH ×2 (05:59→17:43)
--- NOTE | 2016-07-22 08:58 | IPNPDOC ---
Assessment/Plan Date Seen The patient was seen on 07/22/16. Problems Problems: (1) Community acquired pneumonia Status: Acute Problem Text: baseline SaO2 98-100% on RA! 07/22/16 continues to require 10L HF O2 to maintain SaO2 high 90s 07/22/16 nasal PCR coronavirus Oc43 (3 [facility] patients inpx c same serotype) 07/22 - CXR from 07/21: "Increased interstitial markings in the bases bilaterally. Fibrosis versus edema. There is increased density in the right infrahilar region as well. Infiltrate versus mass lesion." Possible aspiration, therefore, D2 IV Cefepime. On Solumedrol. On Nebs. (2) Seizure disorder Status: Chronic Problem Specific Plan: Monitor Clinically Problem Text: On Vimpat. (3) Intellectual disability Status: Chronic Problem Specific Plan: Monitor Clinically (4) Lung nodule Permanent Comment: RLL NC nodule-stable from 02/2012 to 02/2015 CT chest c contrast Last Edited By: Rafi Mullen MD on Jul 22, 2016 13:57 Status: Chronic Response to Treatment: Stable Plan / VTE VTE Prophylaxis Ordered?: Yes Subjective Review of Systems CC/HPI The patient is a 65-year-old male admitted with a reason for visit of Community Acquired Pneumonia. Events since last encounter Pt nonverbal. General: Reports: ROS Unobtainable Objective Physical Examination General Exam: Positive: No Acute Distress Neck Exam: Positive: Supple, Negative: JVD Chest Exam: Positive: Rhonchi, Wheezing Heart Exam: Positive: Rate Normal, Regular Rhythm Abdomen Exam: Positive: Normal bowel sounds, Soft, Negative: Tenderness Extremity Exam: Negative: Edema Vital Signs/I&O Vital Signs Date Time Temp Pulse Resp B/P Pulse Ox O2 Delivery O2 Flow Rate FiO2 07/22/16 04:52 20 95 High Flow Mask 5.0 28 07/22/16 04:46 97.7 83 108/75 I&O- Last 24 Hours up to 6 AM 07/22/16 06:00 Intake Total 0 ml Output Total 325 ml Balance -325 ml Laboratory Data Labs 24H Laboratory Tests 2 07/21/16 09:21: Arterial Blood pH 7.397, Arterial Blood Partial Pressure CO2 39.0, Arterial Blood Partial Pressure O2 73.3L, Arterial Blood Total CO2 24.7, Arterial Blood HCO3 23.5, Arterial Blood Base Excess -1.2, Arterial Blood Oxygen Saturation 94.5L, Blood Gas Bicarbonate Standard 23.4, Oxygen Delivery Device NASAL SHIRA 07/21/16 10:06: Band Neutrophils 5, White Blood Count 7.5, Red Blood Count 3.79L, Hemoglobin 12.8L, Hematocrit 39.3L, Mean Corpuscular Volume 103.5H, Mean Corpuscular Hemoglobin 33.7H, Mean Corpuscular Hemoglobin Concent 32.5, Red Cell Distribution Width 14.0, Platelet Count 166, Neutrophils (%) (Auto) , Lymphocytes (%) (Auto) , Monocytes (%) (Auto) , Eosinophils (%) (Auto) , Basophils (%) (Auto) , Neutrophils # (Auto) , Lymphocytes # (Auto) , Monocytes # (Auto) , Eosinophils # (Auto) , Basophils # (Auto) , Basophils (Manual) 1, Large Unclassified Cells # , Large Unclassified Cells % , Lymphocytes (Manual) 2L, Macrocytosis 1+, Monocytes (Manual) 1, Neutrophils 91H, Platelet Estimate NORMAL 07/21/16 10:07: Activated Partial Thromboplast Time 28.2, Aspartate Amino Transf (AST/SGOT) 21, Alanine Aminotransferase (ALT/SGPT) 18, Alkaline Phosphatase 61, Total Bilirubin 0.9, Direct Bilirubin 0.2, Albumin 2.8L, Albumin/Globulin Ratio 0.80L , Amylase Level 47, Anion Gap 9, B-Type Natriuretic Peptide 186H, C-Reactive Protein, Quantitative 8.52H, Calcium Level 8.0L, Glomerular Filtration Rate > 60.0, Lactic Acid (Sepsis) 1.9, Prothromb Time International Ratio 1.02, Prothrombin Time 13.5, Total Protein 6.3L 07/21/16 10:15: Urine Amorphous Sediment , Urine Appearance HAZY, Urine Color YELLOW, Urine pH 6.0, Urine Specific Winnie 1.014, Urine Protein NEGATIVE, Urine Glucose (UA) NEGATIVE, Urine Ketones NEGATIVE, Urine Urobilinogen 0.2, Urine Bilirubin NEGATIVE, Urine Leukocyte Esterase 1+H, Urine Bacteria (Auto) 1+H, Urine Blood NEGATIVE, Urine Calcium Carbonate Cryst(Auto) , Urine Calcium Oxalate Cryst ( Auto) , Urine Calcium Phosphate G[place]ta (Auto) , Urine Cellular Casts , Urine Cystine Crystals , Urine Granular Casts (Auto) , Urine Hyaline Casts (Auto) 0, Urine Leucine Crystals , Urine Mucus (Auto) SMALL, Urine Nitrite NEGATIVE, Urine Oval Fat Bodies (Auto) , Urine RBC (Auto) 5H, Urine Renal Epithelial Cells , Urine Sperm (Auto) , Urine Squamous Epithelial Cells 0, Urine Transitional Epithelial Cells , Urine Trichomonas (Auto) , Urine Triple Phosphate Cryst (Auto) , Urine Tyrosine Crystals , Urine Uric Acid Crystals ( Auto) , Urine WBC (Auto) 15H, Urine Waxy Casts (Auto) , Urine Yeast-Like Cells ( Auto) 07/22/16 04:41: Anion Gap 8, Blood Urea Nitrogen 21H, Creatinine 0.93, Sodium Level 143, Potassium Level 4.2, Chloride Level 109H, Carbon Dioxide Level 26, Calcium Level 8.0L, Glomerular Filtration Rate > 60.0 CBC/BMP Laboratory Tests 07/21/16 10:06 Red Blood Count 3.79 L, Mean Corpuscular Volume 103.5 H, Mean Corpuscular Hemoglobin 33.7 H, Mean Corpuscular Hemoglobin Concent 32.5, Red Cell Distribution Width 14.0, Neutrophils (%) (Auto) , Lymphocytes (%) (Auto) , Monocytes (%) (Auto) , Eosinophils (%) (Auto) , Basophils (%) (Auto) , Neutrophils # (Auto) , Lymphocytes # (Auto) , Monocytes # (Auto) , Eosinophils # (Auto) , Basophils # (Auto) 07/21/16 10:07 07/22/16 04:41 Red Blood Count 3.54 L, Mean Corpuscular Volume 101.9 H, Mean Corpuscular Hemoglobin 34.1 H, Mean Corpuscular Hemoglobin Concent 33.4, Red Cell Distribution Width 14.2, Calcium Level 8.0 L Microbiology Microbiology 07/21/16 Blood Culture, Received Pending 07/21/16 Blood Culture, Received Pending 07/22/16 Respiratory Virus Panel (PCR) (JABIER), Received Pending 07/21/16 Influenza Virus Type A Antigen - Final, Complete 07/21/16 Influenza Virus Type B Antigen - Final, Complete 07/21/16 Urine Culture, Received Pending Magdy Marie Jul 22, 2016 08:58 Rafi Mullen M.D. Jul 22, 2016 14:00
[2016-07-22] MEDS ORDERED: CitaloPRAM (CeleXA) 10 MG TABLET PO SCH (09:00)
[2016-07-22] MEDS: CEFEPIME HCL 2 GM in D5W MINI-BAG PLUS 50 ML IV SCH ×2 (09:22→21:59)
[2016-07-22] MEDS: LACOSAMIDE 50 MG TAB (VIMPAT) PO SCH ×2 (09:22→21:59)
[2016-07-22 14:28] LABS: ABG BASE EXCESS -0.4 (-2.0-2.0); ABG HCO3 25.2 MEQ/L (22.0-26.0); ABG PARTIAL PRESSURE CO2 45.4 mmHg (35.0-45.0); ABG PARTIAL PRESSURE O2 81.5 mmHg (75.0-100.0); ABG STANDARD HCO3 24.1 MEQ/L (22.0-26.0); ABG TOTAL CO2 26.6 MEQ/L (23.0-31.0); ABG pH (ARTERIAL) 7.363 UNITS (7.350-7.450)
[2016-07-22] MEDS ORDERED: MIDAZOLAM INJ 5 MG/ML VIAL (J2250) As Ordered ONE (15:21)
[2016-07-22] MEDS ORDERED: MIDAZOLAM INJ 2 MG/2 ML VIAL (J2250) As Ordered ONE (15:54)
[2016-07-22] MEDS: LEVALBUTEROL 1.25 MG/0.5 ML CONCENTRATE NEB INH SCH ×2 (16:00→19:54)
[2016-07-22] MEDS ORDERED: MIDAZOLAM INJ 2 MG/2 ML VIAL (J2250) IV STA ×2 (16:12)
[2016-07-22] MEDS ORDERED: DEXTROSE 50% 50 ML SYRINGE IV PRN (16:15)
[2016-07-22] MEDS ORDERED: GLUCAGON FOR INJ 1 MG VIAL (J1610) SC PRN (16:15)
[2016-07-22] MEDS ORDERED: GLUCOSE 4 GM CHEW TABLET PO PRN (16:15)
[2016-07-22] MEDS: MIDAZOLAM INJ 2 MG/2 ML VIAL (J2250) IV PRN ×4 (16:39→20:21)
[2016-07-22] MEDS ORDERED: MIDAZOLAM INJ 5 MG/ML VIAL (J2250) IV STA (16:44)
--- NOTE | 2016-07-22 17:02 | REP ---
Portable chest x-ray: Single view. History: Endotracheal tube. Comparison study is from July 21, 2016. Findings: An endotracheal tube is seen in good position at the level of the transverse aorta. There are patchy infiltrates in both lung bases. Heart is not enlarged. No pleural effusion is seen. EKG electrodes are seen. Impression: Endotracheal tube in good position. Bilateral lower lobe patchy infiltrates consistent with pneumonia. Signed by Lalit Beard MD 07/23/2016 08:29 A
[2016-07-22 17:20] LABS: ABG BASE EXCESS -1.7 (-2.0-2.0); ABG PARTIAL PRESSURE CO2 33.7 mmHg (35.0-45.0); ABG PARTIAL PRESSURE O2 118.7 mmHg (75.0-100.0); ABG STANDARD HCO3 23.1 MEQ/L (22.0-26.0); ABG pH (ARTERIAL) 7.432 UNITS (7.350-7.450)
--- NOTE | 2016-07-22 17:37 | CCN ---
DATE: 07/22/2016 CRITICAL CARE NOTE: I was called to evaluate this 65-year-old male for respiratory failure, admitted last evening. He has had progressive decline in respiratory status. He has a past medical history of mental retardation. He is a resident at [facility] ([facility] At baseline, apparently, he had been ambulatory but was nonverbal. There is also a past medical history in the electronic record of chronic obstructive lung disease, although there was no history of tobacco use. At bedside, he is an extremis. His temperature is 98, pulse rate 100, respirations 50, blood pressure 117/58. HEENT: Oral and nasal mucosa are dry. Posterior pharynx is dry. There are a few teeth remaining. He has some moderate periodontal disease. NECK: Supple. No meningismus. There are thick secretions in the retropharynx. Neck is supple but webbed. CARDIOVASCULAR: The heart sounds are regular without appreciable murmur. CHEST: Breath sounds show coarse rhonchi throughout. Chest is symmetric. He is using accessory muscles during every respiratory effort. ABDOMEN: Soft with intact bowel sounds. EXTREMITIES: Show muscle wasting. DIAGNOSTIC STUDIES: Chest x-ray shows a right lower lobe infiltrate. His sodium is 143, potassium 4.2, chloride 109, CO2 26, BUN 21, creatinine 0.92, glucose 138. Arterial blood gases earlier showed a pH of 7.36, pCO2 45, pO2 81. The primary problem requiring critical attention is acute respiratory failure. The patient's family has been contacted and wish full resuscitative efforts be performed. We will proceed with endotracheal tube intubation, mechanical ventilatory support, sedate him with Versed, and obtain followup blood gases. Aspiration pneumonia. Once his airway is secured, we will perform bronchoscopy to obtain culture and clear the airways. Dehydration. IV fluids have been initiated. We will follow input and output. For DVT prophylaxis, he is receiving subcutaneous Lovenox. For ulcer prophylaxis, he will be receiving IV Protonix. Nutritional status is compromised. We will initiate tube feedings. Glycemic control. We will monitor the fingerstick blood sugars and subcutaneous insulin. I have reviewed the case with the patient's attending physician. His condition is critical. Prognosis is guarded. 79 minutes were spent in the provision of bedside critical care and coordination.
[2016-07-22] MEDS: HumaLOG INSULIN (NovoLOG) PER UNIT SC SCH ×2 (17:45→23:58)
--- NOTE | 2016-07-22 18:02 | RO ---
DATE OF PROCEDURE: 07/22/2016 FIRST PREPROCEDURE DIAGNOSIS: Hypoxemia. FIRST POSTPROCEDURE DIAGNOSIS: Hypoxemia. FIRST OPERATIVE PROCEDURE: Endotracheal tube intubation using GlideScope for laryngoscopy. SURGEON: Radhames Martini MD TITLE I INSTRUCTIONAL ASSISTANT: Vipul Arreaga MD ANESTHESIA: DESCRIPTION OF PROCEDURE: The patient was seen in the intensive care unit and extremis with respiratory failure and hypoxemia. Bag mask ventilation was performed. The upper airway was topically treated with Cetacaine and the patient was given IV Versed for sedation. Direct laryngoscopy was performed using a GlideScope. The vocal cords were visualized. There were copious thick secretions around the vocal cords. These were suctioned free. Subsequently, an 8.5 endotracheal tube was placed over a stylet into the trachea and advanced to a distance of 23 cm. Balloon was inflated, good bilateral breath sounds were appreciated and CO2 was noted on the monitor. The patient tolerated the procedure well, suffered no apparent complication and was left in improved condition in the intensive care unit. SECOND PREPROCEDURE DIAGNOSIS: Aspiration pneumonia. SECOND POSTPROCEDURE DIAGNOSIS: Aspiration pneumonia. SECOND OPERATIVE PROCEDURE: Fiberoptic bronchoscopy. SURGEON: Radhames Martini MD TITLE I INSTRUCTIONAL ASSISTANT: Vipul Arreaga MD ANESTHESIA: DESCRIPTION OF PROCEDURE: The patient was seen in the intensive care unit having just been intubated and on mechanical ventilation. Copious secretions were appreciated in the endotracheal tube. A fiberoptic bronchoscope was prepared and placed in through the endotracheal tube and into the trachea. Saline was used for lavage. The large airways were suctioned free of secretions. The aftab was sharp. The airways of the right and left lung were examined in a subsegmental fashion for any evidence of tumor, ulcer, necrosis, vessel engorgement or mucosal irregularity. There were copious secretions, hypertrophy of mucus pits, some erythema but no other endobronchial disease appreciated. Copious secretions were suctioned particularly from dependent airways. The airways were lavaged with saline. When no further secretions could be obtained, the bronchoscope was retracted out through the endotracheal tube. The patient tolerated the procedure well, suffering no apparent complications. A postprocedural chest x-ray confirmed improvement in aeration of the lungs. There were no complications.
[2016-07-22] MEDS: CHLORHEXIDINE GLUCONATE 0.12 % 15ML UDC (PERIDEX ORAL RINSE) MT SCH (21:59)
[2016-07-22] MEDS: ENOXAPARIN 40 MG/0.4 ML SYRINGE (J1650) SC SCH (22:00)
[2016-07-23] VITALS (17 sets, daily range): BP systolic 95–142; BP diastolic 53–78; O2SAT 94–96
[2016-07-23] MEDS: MIDAZOLAM INJ 2 MG/2 ML VIAL (J2250) IV PRN ×3 (00:03→05:35)
[2016-07-23] MEDS: LEVALBUTEROL 1.25 MG/0.5 ML CONCENTRATE NEB INH SCH ×7 (01:58→23:33)
[2016-07-23 05:02] LABS: MEAN CORPUSCULAR HEMOGLOBIN 33.5 pg (27.0-33.0); MEAN CORPUSCULAR HGB CONC 32.7 g/dl (32.0-36.5); MEAN CORPUSCULAR VOLUME 102.6 fl (80.0-96.0); RED CELL DISTRIBUTION WIDTH 13.6 % (11.5-14.5); WHITE BLOOD COUNT 10.4 K/mm3 (4.0-10.0)
[2016-07-23 05:23] LABS: ALBUMIN 2.2 GM/DL (3.2-5.2); ALBUMIN/GLOBULIN RATIO 0.61 (1.00-1.93); ALKALINE PHOSPHATASE 52 U/L (45-117); ALT/SGPT 23 U/L (12-78); ANION GAP 8 MEQ/L (8-16); AST/SGOT 28 U/L (15-37); BILIRUBIN,TOTAL 0.7 MG/DL (0.2-1.0); BLOOD UREA NITROGEN 20 MG/DL (7-18); CALCIUM LEVEL 8.3 MG/DL (8.8-10.2); CARBON DIOXIDE LEVEL 25 MEQ/L (21-32); CHLORIDE LEVEL 111 MEQ/L (98-107); CHOLESTEROL LEVEL 119 MG/DL (< 200); CREATININE FOR GFR 0.76 MG/DL (0.70-1.30); GLOMERULAR FILTRATION RATE > 60.0 (>49); GLUCOSE, FASTING 168 MG/DL (80-110); PHOSPHORUS LEVEL 0.8 MG/DL (2.5-4.9); POTASSIUM SERUM 3.8 MEQ/L (3.5-5.1); SODIUM LEVEL 144 MEQ/L (136-145); TOTAL PROTEIN 5.8 GM/DL (6.4-8.2); TRIGLYCERIDES LEVEL 80 MG/DL (<150)
[2016-07-23 05:44] LABS: ABG BASE EXCESS -1.8 (-2.0-2.0); ABG HCO3 21.1 MEQ/L (22.0-26.0); ABG PARTIAL PRESSURE O2 206.3 mmHg (75.0-100.0); ABG pH (ARTERIAL) 7.464 UNITS (7.350-7.450)
[2016-07-23] MEDS: methylPREDNISolone INJ 125 MG/2 ML VIAL (J2930) IV SCH ×2 (05:52→17:40)
[2016-07-23] MEDS: HumaLOG INSULIN (NovoLOG) PER UNIT SC SCH ×3 (05:52→17:39)
--- NOTE | 2016-07-23 08:12 | IPNPDOC ---
Assessment/Plan Date Seen The patient was seen on 07/23/16. Problems Problems: (1) Community acquired pneumonia Status: Acute Problem Text: 07/23 - Aspiration pneumonia. Was intubated yesterday. Pulmonary following. On Cefepime. 07/22 - baseline SaO2 98-100% on RA! 07/22/16 continues to require 10L HF O2 to maintain SaO2 high 90s 07/22/16 nasal PCR coronavirus Oc43 (3 [facility] patients inpx c same serotype) 07/22 - CXR from 07/21: "Increased interstitial markings in the bases bilaterally. Fibrosis versus edema. There is increased density in the right infrahilar region as well. Infiltrate versus mass lesion." Possible aspiration, therefore, D2 IV Cefepime. On Solumedrol. On Nebs. (2) Seizure disorder Status: Chronic Problem Specific Plan: Monitor Clinically Problem Text: On Vimpat. (3) Intellectual disability Status: Chronic Problem Specific Plan: Monitor Clinically (4) Lung nodule Permanent Comment: RLL NC nodule-stable from 02/2012 to 02/2015 CT chest c contrast Last Edited By: Rafi Mullen MD on Jul 22, 2016 13:57 Status: Chronic Response to Treatment: Stable Plan / VTE VTE Prophylaxis Ordered?: Yes Subjective Review of Systems CC/HPI The patient is a 65-year-old male admitted with a reason for visit of Community Acquired Pneumonia. Events since last encounter Pt nonverbal. Was intubated yesterday. General: Reports: ROS Unobtainable Objective Physical Examination General Exam: Positive: No Acute Distress Neck Exam: Positive: Supple, Negative: JVD Chest Exam: Positive: Diminished, Other (intubated) Heart Exam: Positive: Rate Normal, Regular Rhythm Abdomen Exam: Positive: Normal bowel sounds, Soft, Negative: Tenderness Extremity Exam: Negative: Edema Vital Signs/I&O Vital Signs Date Time Temp Pulse Resp B/P Pulse Ox O2 Delivery O2 Flow Rate FiO2 07/23/16 06:00 50 07/23/16 06:00 77 14 95/53 97 Ventilator 07/23/16 04:00 97.2 07/22/16 15:35 10.0 I&O- Last 24 Hours up to 6 AM 07/23/16 06:00 Intake Total 2350 ml Output Total 1230 ml Balance 1120 ml Laboratory Data Labs 24H Laboratory Tests 2 07/22/16 14:26: Arterial Blood pH 7.363, Arterial Blood Partial Pressure CO2 45.4H, Arterial Blood Partial Pressure O2 81.5, Arterial Blood Total CO2 26.6, Arterial Blood HCO3 25.2, Arterial Blood Base Excess -0.4, Arterial Blood Oxygen Saturation 96.6, Arterial Blood Gas Puncture Site RT BRACHIAL, Blood Gas Bicarbonate Standard 24.1 07/22/16 17:15: Arterial Blood pH 7.432, Arterial Blood Partial Pressure CO2 33.7L, Arterial Blood Partial Pressure O2 118.7H, Arterial Blood Total CO2 23.0, Arterial Blood HCO3 22.0, Arterial Blood Base Excess -1.7, Arterial Blood Oxygen Saturation 98.9, Arterial Blood Gas Puncture Site RT BRACHIAL, Blood Gas Bicarbonate Standard 23.1 07/22/16 17:39: Bedside Glucose (Misc Panel) 144H 07/22/16 23:53: Bedside Glucose (Misc Panel) 172H 07/23/16 04:29: Blood Urea Nitrogen 20H, Creatinine 0.76, Sodium Level 144, Potassium Level 3.8 , Chloride Level 111H, Carbon Dioxide Level 25, Calcium Level 8.3L, Phosphorus Level 0.8L, Aspartate Amino Transf (AST/SGOT) 28, Alanine Aminotransferase (ALT/ SGPT) 23, Lactate Dehydrogenase 164, Total Creatine Kinase 57, Alkaline Phosphatase 52, Total Bilirubin 0.7, Triglycerides Level 80, Cholesterol Level 119, Total Protein 5.8L, Albumin 2.2#L, Albumin/Globulin Ratio 0.61L, Anion Gap 8, Glomerular Filtration Rate > 60.0 07/23/16 05:28: Arterial Blood pH 7.464H, Arterial Blood Partial Pressure CO2 30.0L, Arterial Blood Partial Pressure O2 206.3H, Arterial Blood Total CO2 22.0L, Arterial Blood HCO3 21.1L, Arterial Blood Base Excess -1.8, Arterial Blood Oxygen Saturation 99.6H, Blood Gas Bicarbonate Standard 23.0 07/23/16 05:48: Bedside Glucose (Misc Panel) 173H CBC/BMP Laboratory Tests 07/23/16 04:29 Calcium Level 8.3 L, Phosphorus Level 0.8 L, Aspartate Amino Transf (AST/SGOT) 28, Alanine Aminotransferase (ALT/SGPT) 23, Lactate Dehydrogenase 164, Total Creatine Kinase 57, Alkaline Phosphatase 52, Total Bilirubin 0.7, Triglycerides Level 80, Cholesterol Level 119, Total Protein 5.8 L, Albumin 2.2 #L, Red Blood Count 3.31 L, Mean Corpuscular Volume 102.6 H, Mean Corpuscular Hemoglobin 33.5 H, Mean Corpuscular Hemoglobin Concent 32.7, Red Cell Distribution Width 13.6 FSBS Laboratory Tests Test 07/22/16 17:39 07/22/16 23:53 07/23/16 05:48 Range/Units Bedside Glucose (Misc Panel) 144 172 173 80-115 MG/DL Microbiology Microbiology 07/21/16 Blood Culture - Preliminary, Resulted No growth after 24 hours . All specim... 07/21/16 Blood Culture - Preliminary, Resulted No growth after 24 hours . All specim... 07/22/16 Gram Stain, Received Pending 07/22/16 Sputum Culture, Received Pending 07/22/16 MRSA Screen, Received Pending 07/22/16 Respiratory Virus Panel (PCR) (JABIER) - Final, Complete Coronavirus Oc43 07/21/16 Influenza Virus Type A Antigen - Final, Complete 07/21/16 Influenza Virus Type B Antigen - Final, Complete 07/21/16 Urine Culture, Received Pending Magdy Marie Jul 23, 2016 08:12
[2016-07-23] MEDS: PANTOPRAZOLE 40MG INJ (PROTONIX) (C9113) IV SCH (08:22)
[2016-07-23] MEDS: LACOSAMIDE 50 MG TAB (VIMPAT) PO SCH ×2 (08:22→21:03)
[2016-07-23] MEDS: CHLORHEXIDINE GLUCONATE 0.12 % 15ML UDC (PERIDEX ORAL RINSE) MT SCH (08:22)
--- NOTE | 2016-07-23 08:30 | REP ---
Portable chest x-ray: Two views. History: Endotracheal tube. Comparison study July 22, 2016. Findings: Nasogastric tube is seen entering the left upper quadrant of the abdomen. The endotracheal tube terminates at the aftab tip somewhat to the left near the origin of the left mainstem bronchus. This should be withdrawn 2-3 cm. Bilateral patchy infiltrates are again seen in the lower lung zones. Heart is not enlarged. EKG monitoring electrodes overlie the chest. Impression: Endotracheal tube is at the aftab near the origin of the left mainstem bronchus. This should be withdrawn 2-3 cm. Signed by Lalit Beard MD 07/23/2016 02:32 P
[2016-07-23] MEDS: KCL 20MEQ in NS 1000ML 1,000 ML IV SCH ×2 (09:04→17:39)
[2016-07-23] MEDS: CEFEPIME HCL 2 GM in D5W MINI-BAG PLUS 50 ML IV SCH ×2 (09:06→21:02)
--- NOTE | 2016-07-23 17:35 | EDDOCDS ---
Physician Documentation [facility] Name: Scott Kumari Age: 65 yrs Sex: Male : 1950 Arrival Date: 07/21/2016 Time: 08:57 Bed 1 Private MD: Jw Esteban Disposition: 07/21/16 11:09 Hospitalization ordered by Alexandru Oden for Inpatient Admission. Preliminary diagnosis is Pneumonia due to other specified bacteria. - Bed requested for PCU. - Status is Inpatient Admission. ar3 - Condition is Stable. - Problem is new. - Symptoms have improved. Historical: - Allergies: PENICILLINS; Erythromycin; Sudafed; Aspirin; Adhesives; antihistimines; - Home Meds: 1. Vimpat 50 mg oral tab 1 tab 2 times per day (Last dose: 07/20/2016 07:00) 2. Dulcolax (bisacodyl) 10 mg Rectal supp 1 suppository as needed day 4 wiht no BM (Last dose: Unknown) 3. fleet enema day 5 with no BM (Last dose: Unknown) 4. Milk of Magnesia Oral q3 days as needed (Last dose: Unknown) 5. Bag [place] as needed for excoriations (Last dose: Unknown) - PMHx: senile dementia; expressive language disorder; COPD; Down's Syndrome; high myopia; raynauds disease; Seizure Disorder; profound MR; Degenerative disc disease; - Social history: Smoking status: unknown if patient ever smoked tobacco. non-verbal. - Family history: Not pertinent. - : The pt / caregiver states he / she is not on anticoagulants. Home medication list is obtained from the facility AUG. - Exposure Risk Screening:: None identified. Vital Signs: 07/21 09:12 BP 91 / 51; Pulse 86; Resp 26; Temp 100.7(TE); Pulse Ox 93% on 6 lpm NC; Weight 45.81 ct3 kg / 100.99 lbs (M); 10:11 Pulse 88 MON; Pulse Ox 94% ; ja5 10:12 BP 94 / 51 (auto/); ja5 10:14 Pulse 90 MON; Pulse Ox 94% ; ja5 10:15 BP 91 / 53 (auto/); ja5 10:29 Pulse 85 MON; Pulse Ox 93% ; ja5 10:30 BP 89 / 58 (auto/); ja5 10:44 Pulse 92 MON; Pulse Ox 100% ; ja5 10:45 BP 92 / 56 (auto/); ja5 10:59 Pulse 96 MON; Pulse Ox 96% ; ja5 11:00 BP 100 / 59 (auto/); ja5 11:14 Pulse 87 MON; Pulse Ox 95% ; ja5 11:15 BP 103 / 61 (auto/); ja5 11:26 Temp 100.2(TE); ja5 11:29 Pulse 97 MON; Pulse Ox 95% ; ja5 11:30 BP 89 / 64 (auto/); ja5 11:44 Pulse 93 MON; Pulse Ox 97% ; ja5 11:45 BP 90 / 55 (auto/); ja5 11:59 Pulse 92 MON; Pulse Ox 95% ; ja5 12:00 BP 93 / 55 (auto/); ja5 12:14 Pulse 95 MON; Pulse Ox 96% ; ja5 12:15 BP 94 / 62 (auto/); ja5 12:30 BP 94 / 68 (auto/); jc4 12:30 Pulse 97 MON; Pulse Ox 97% ; jc4 12:44 Pulse 95 MON; Pulse Ox 96% ; jc4 12:45 BP 91 / 52 (auto/); jc4 13:00 BP 81 / 54 (auto/); jc4 13:00 Pulse 90 MON; Pulse Ox 96% ; jc4 13:13 BP 127 / 61 (auto/); jc4 13:13 Pulse 94 MON; Pulse Ox 96% ; jc4 13:14 Pulse 97 MON; Pulse Ox 95% ; jc4 13:15 BP 88 / 58 (auto/); jc4 13:17 BP 127 / 61; Pulse 97; Resp 32; Pulse Ox 95% ; Pain 0/10; ja5 13:30 BP 103 / 56 (auto/); jc4 13:30 Pulse 94 MON; jc4 13:55 Pulse 90 MON; Pulse Ox 93% ; jc4 13:57 Pulse 92 MON; Pulse Ox 92% ; jc4 13:57 BP 103 / 67 (auto/); jc4 14:00 BP 97 / 64 (auto/); jc4 14:15 BP 97 / 61 (auto/); jc4 14:18 Pulse 86 MON; Pulse Ox 94% ; jc4 14:29 Pulse 89 MON; Pulse Ox 96% ; jc4 14:30 BP 96 / 62 (auto/); jc4 14:44 Pulse 93 MON; Pulse Ox 95% ; jc4 14:45 BP 93 / 65 (auto/); jc4 15:00 BP 100 / 67 (auto/); jc4 15:02 Pulse 91 MON; Pulse Ox 95% ; jc4 15:15 BP 101 / 68 (auto/); jc4 15:15 Pulse 97 MON; Pulse Ox 94% ; jc4 15:28 Pulse 91 MON; Pulse Ox 92% ; jc4 15:30 BP 100 / 67 (auto/); jc4 15:45 BP 110 / 61 (auto/); jc4 15:47 Pulse 93 MON; Pulse Ox 92% ; jc4 16:08 BP 107 / 62; Pulse 93; Resp 28; Temp 100.4(TE); Pulse Ox 93% on 50% Venturi mask; jc4 16:32 BP 107 / 59; Pulse 93; Resp 28; Pulse Ox 92% on 50% Venturi mask; jc4 MDM: 09:06 Acetaminophen Suppository 650 mg [place] once ordered. sd1 09:06 -Blood Culture (Adults Only), peripheral from different site, or from device/port/PICC sd1 etc. if present ordered. 09:06 Call Respiratory ordered. sd1 09:06 Adventure Challenge Instructor/Pulse Ox/q 15 min VS ordered. sd1 09:06 Large bore IV x 2 ordered. sd1 09:06 Oxygen at 4L/Min NC or Home dosage ordered. sd1 09:06 Intake and Output Hourly ordered. sd1 09:06 NS 0.9% 1000 ml IV at bolus once ordered. sd1 09:06 -Arterial Blood Gas Ordered. EDMS 09:06 -Blood Culture Ordered. EDMS 09:06 Amylase Ordered. EDMS 09:06 C Reactive Protein Ordered. EDMS 09:06 CBC with Diff Ordered. EDMS 09:06 Lactic Acid (Lewis tube on ice) Ordered. EDMS 09:06 Liver Profile Ordered. EDMS 09:06 MED Profile Ordered. EDMS 09:06 PT/INR Ordered. EDMS 09:07 PTT Ordered. EDMS 09:07 Type & Screen Ordered. EDMS 09:07 Urinalysis Ordered. EDMS 09:07 Urine Culture Ordered. EDMS 09:08 Chest, 1 View Ordered. EDMS 09:08 ECG WITH READING ER PHYS+CARDIAG ordered. EDMS 09:13 Call Respiratory complete. jc4 09:14 -Influenza A&B Rapid Antigen - Nose Ordered. EDMS 09:35 CT Head Without Contrast Ordered. EDMS 09:36 BED REQUEST+ADM ordered. EDMS 09:38 Cefepime 2 grams IVPB at 100 mL/hr once over 30 mins; dilute in 50mL of NS or D5W sd1 ordered. 09:41 -Arterial Blood Gas Reviewed. sd1 09:43 BNP Ordered. EDMS 09:44 -Blood Culture (Adults Only), peripheral from different site, or from device/port/PICC ar3 etc. if present complete. 09:44 BLOOD CULTURES Ordered. EDMS 10:11 Financial registration complete. mpb 10:12 [facility] Agreement was scanned into [employer] and attached to record. mpb 10:22 DIFFERENTIAL NO CHARGE Ordered. EDMS 10:22 PLATELET ESTIMATE Ordered. EDMS 10:39 C Reactive Protein Reviewed. sd1 10:39 CBC with Diff Reviewed. sd1 10:39 Liver Profile Reviewed. sd1 10:39 MED Profile Reviewed. sd1 10:39 Amylase Reviewed. sd1 10:39 Lactic Acid (Lewis tube on ice) Reviewed. sd1 10:39 PT/INR Reviewed. sd1 10:39 PTT Reviewed. sd1 10:39 Type & Screen Reviewed. sd1 10:39 -Influenza A&B Rapid Antigen - Nose Reviewed. sd1 10:39 Chest, 1 View Reviewed. sd1 10:51 Urinalysis Reviewed. sd1 10:51 BNP Reviewed. sd1 13:48 Admission / Observation Status ordered. EDMS 13:57 T-Sheet-- Draft Copy was scanned into [employer] and attached to record. klr 14:12 RESPIRATORY PANEL Ordered. EDMS 02/ 09:42 ECG/EKG was scanned into [employer] and attached to record. gb 09:42 Trend VS was scanned into [employer] and attached to record. gb Administered Medications: 07/21 09:13 Drug: NS 0.9% 1000 ml [sodium chloride 0.9 % intravenous solution] Route: IV; Rate: jc4 bolus; Site: left forearm; 10:00 Follow up: IV Status: Completed infusion; IV Intake: 1000ml jc4 10:26 Drug: Acetaminophen 650 mg [acetaminophen 650 mg rectal suppository (1 supp)] Route: LA;ja5 11:26 Follow up: Temp 100.2 Temporal ja5 10:51 Drug: Cefepime 2 grams [cefepime 2 gram solution for injection] Route: IVPB; Rate: 100 ja5 mL/hr; Infused Over: 30 mins; Site: right forearm; 11:22 Follow up: IV Status: Completed infusion; IV Intake: 50ml jc4 Signatures: Dispatcher [employer] Rose Marie Acevedo MD MD sd1 Dora Espinosa, RN RN kpj Daniella Brady, Reg Reg gb Savannah Chopra, CHARCOAL UNLOADER CHARCOAL UNLOADER ar3 Jazmine Markham RN RN jc4 Ev David RN RN sls2 Anjum Vazquez, Reg Reg mpb Harleen Espinoza JessicaRN RN ja5 The chart was reviewed and I authenticate all verbal orders and agree with the evaluation and treatment provided.Corrections: (The following items were deleted from the chart) 11:27 09:06 Set up for triple lumen central Iine placement ordered. [email or web address] Attachments: 10:12 [facility] Agreement mpb 13:57 T-Sheet-- Draft Copy r 07/22 09:42 ECG/EKG gb Chart Complete MTDD
--- NOTE | 2016-07-23 17:35 | EDDOCDS ---
Physician Documentation [facility] Name: Scott Kumari Age: 65 yrs Sex: Male : 1950 Arrival Date: 07/21/2016 Time: 08:57 Bed 1 Private MD: Jw Esteban Disposition: 07/21/16 11:09 Hospitalization ordered by Alexandru Oden for Inpatient Admission. Preliminary diagnosis is Pneumonia due to other specified bacteria. - Bed requested for PCU. - Status is Inpatient Admission. ar3 - Condition is Stable. - Problem is new. - Symptoms have improved. Historical: - Allergies: PENICILLINS; Erythromycin; Sudafed; Aspirin; Adhesives; antihistimines; - Home Meds: 1. Vimpat 50 mg oral tab 1 tab 2 times per day (Last dose: 07/20/2016 07:00) 2. Dulcolax (bisacodyl) 10 mg Rectal supp 1 suppository as needed day 4 wiht no BM (Last dose: Unknown) 3. fleet enema day 5 with no BM (Last dose: Unknown) 4. Milk of Magnesia Oral q3 days as needed (Last dose: Unknown) 5. Bag [place] as needed for excoriations (Last dose: Unknown) - PMHx: senile dementia; expressive language disorder; COPD; Down's Syndrome; high myopia; raynauds disease; Seizure Disorder; profound MR; Degenerative disc disease; - Social history: Smoking status: unknown if patient ever smoked tobacco. non-verbal. - Family history: Not pertinent. - : The pt / caregiver states he / she is not on anticoagulants. Home medication list is obtained from the facility AUG. - Exposure Risk Screening:: None identified. Vital Signs: 07/21 09:12 BP 91 / 51; Pulse 86; Resp 26; Temp 100.7(TE); Pulse Ox 93% on 6 lpm NC; Weight 45.81 ct3 kg / 100.99 lbs (M); 10:11 Pulse 88 MON; Pulse Ox 94% ; ja5 10:12 BP 94 / 51 (auto/); ja5 10:14 Pulse 90 MON; Pulse Ox 94% ; ja5 10:15 BP 91 / 53 (auto/); ja5 10:29 Pulse 85 MON; Pulse Ox 93% ; ja5 10:30 BP 89 / 58 (auto/); ja5 10:44 Pulse 92 MON; Pulse Ox 100% ; ja5 10:45 BP 92 / 56 (auto/); ja5 10:59 Pulse 96 MON; Pulse Ox 96% ; ja5 11:00 BP 100 / 59 (auto/); ja5 11:14 Pulse 87 MON; Pulse Ox 95% ; ja5 11:15 BP 103 / 61 (auto/); ja5 11:26 Temp 100.2(TE); ja5 11:29 Pulse 97 MON; Pulse Ox 95% ; ja5 11:30 BP 89 / 64 (auto/); ja5 11:44 Pulse 93 MON; Pulse Ox 97% ; ja5 11:45 BP 90 / 55 (auto/); ja5 11:59 Pulse 92 MON; Pulse Ox 95% ; ja5 12:00 BP 93 / 55 (auto/); ja5 12:14 Pulse 95 MON; Pulse Ox 96% ; ja5 12:15 BP 94 / 62 (auto/); ja5 12:30 BP 94 / 68 (auto/); jc4 12:30 Pulse 97 MON; Pulse Ox 97% ; jc4 12:44 Pulse 95 MON; Pulse Ox 96% ; jc4 12:45 BP 91 / 52 (auto/); jc4 13:00 BP 81 / 54 (auto/); jc4 13:00 Pulse 90 MON; Pulse Ox 96% ; jc4 13:13 BP 127 / 61 (auto/); jc4 13:13 Pulse 94 MON; Pulse Ox 96% ; jc4 13:14 Pulse 97 MON; Pulse Ox 95% ; jc4 13:15 BP 88 / 58 (auto/); jc4 13:17 BP 127 / 61; Pulse 97; Resp 32; Pulse Ox 95% ; Pain 0/10; ja5 13:30 BP 103 / 56 (auto/); jc4 13:30 Pulse 94 MON; jc4 13:55 Pulse 90 MON; Pulse Ox 93% ; jc4 13:57 Pulse 92 MON; Pulse Ox 92% ; jc4 13:57 BP 103 / 67 (auto/); jc4 14:00 BP 97 / 64 (auto/); jc4 14:15 BP 97 / 61 (auto/); jc4 14:18 Pulse 86 MON; Pulse Ox 94% ; jc4 14:29 Pulse 89 MON; Pulse Ox 96% ; jc4 14:30 BP 96 / 62 (auto/); jc4 14:44 Pulse 93 MON; Pulse Ox 95% ; jc4 14:45 BP 93 / 65 (auto/); jc4 15:00 BP 100 / 67 (auto/); jc4 15:02 Pulse 91 MON; Pulse Ox 95% ; jc4 15:15 BP 101 / 68 (auto/); jc4 15:15 Pulse 97 MON; Pulse Ox 94% ; jc4 15:28 Pulse 91 MON; Pulse Ox 92% ; jc4 15:30 BP 100 / 67 (auto/); jc4 15:45 BP 110 / 61 (auto/); jc4 15:47 Pulse 93 MON; Pulse Ox 92% ; jc4 16:08 BP 107 / 62; Pulse 93; Resp 28; Temp 100.4(TE); Pulse Ox 93% on 50% Venturi mask; jc4 16:32 BP 107 / 59; Pulse 93; Resp 28; Pulse Ox 92% on 50% Venturi mask; jc4 MDM: 09:06 Acetaminophen Suppository 650 mg [place] once ordered. sd1 09:06 -Blood Culture (Adults Only), peripheral from different site, or from device/port/PICC sd1 etc. if present ordered. 09:06 Call Respiratory ordered. sd1 09:06 Regional Manager/Pulse Ox/q 15 min VS ordered. sd1 09:06 Large bore IV x 2 ordered. sd1 09:06 Oxygen at 4L/Min NC or Home dosage ordered. sd1 09:06 Intake and Output Hourly ordered. sd1 09:06 NS 0.9% 1000 ml IV at bolus once ordered. sd1 09:06 -Arterial Blood Gas Ordered. EDMS 09:06 -Blood Culture Ordered. EDMS 09:06 Amylase Ordered. EDMS 09:06 C Reactive Protein Ordered. EDMS 09:06 CBC with Diff Ordered. EDMS 09:06 Lactic Acid (Lewis tube on ice) Ordered. EDMS 09:06 Liver Profile Ordered. EDMS 09:06 MED Profile Ordered. EDMS 09:06 PT/INR Ordered. EDMS 09:07 PTT Ordered. EDMS 09:07 Type & Screen Ordered. EDMS 09:07 Urinalysis Ordered. EDMS 09:07 Urine Culture Ordered. EDMS 09:08 Chest, 1 View Ordered. EDMS 09:08 ECG WITH READING ER PHYS+CARDIAG ordered. EDMS 09:13 Call Respiratory complete. jc4 09:14 -Influenza A&B Rapid Antigen - Nose Ordered. EDMS 09:35 CT Head Without Contrast Ordered. EDMS 09:36 BED REQUEST+ADM ordered. EDMS 09:38 Cefepime 2 grams IVPB at 100 mL/hr once over 30 mins; dilute in 50mL of NS or D5W sd1 ordered. 09:41 -Arterial Blood Gas Reviewed. sd1 09:43 BNP Ordered. EDMS 09:44 -Blood Culture (Adults Only), peripheral from different site, or from device/port/PICC ar3 etc. if present complete. 09:44 BLOOD CULTURES Ordered. EDMS 10:11 Financial registration complete. mpb 10:12 [facility] [place] Payment Agreement was scanned into [place] and attached to record. mpb 10:22 DIFFERENTIAL NO CHARGE Ordered. EDMS 10:22 PLATELET ESTIMATE Ordered. EDMS 10:39 C Reactive Protein Reviewed. sd1 10:39 CBC with Diff Reviewed. sd1 10:39 Liver Profile Reviewed. sd1 10:39 MED Profile Reviewed. sd1 10:39 Amylase Reviewed. sd1 10:39 Lactic Acid (Lewis tube on ice) Reviewed. sd1 10:39 PT/INR Reviewed. sd1 10:39 PTT Reviewed. sd1 10:39 Type & Screen Reviewed. sd1 10:39 -Influenza A&B Rapid Antigen - Nose Reviewed. sd1 10:39 Chest, 1 View Reviewed. sd1 10:51 Urinalysis Reviewed. sd1 10:51 BNP Reviewed. sd1 13:48 Admission / Observation Status ordered. EDMS 13:57 T-Sheet-- Draft Copy was scanned into [place] and attached to record. klr 14:12 RESPIRATORY PANEL Ordered. EDMS 02/ 09:42 ECG/EKG was scanned into [place] and attached to record. gb 09:42 Trend VS was scanned into [place] and attached to record. gb Administered Medications: 07/21 09:13 Drug: NS 0.9% 1000 ml [sodium chloride 0.9 % intravenous solution] Route: IV; Rate: jc4 bolus; Site: left forearm; 10:00 Follow up: IV Status: Completed infusion; IV Intake: 1000ml jc4 10:26 Drug: Acetaminophen 650 mg [acetaminophen 650 mg rectal suppository (1 supp)] Route: [place];ja5 11:26 Follow up: Temp 100.2 Temporal ja5 10:51 Drug: Cefepime 2 grams [cefepime 2 gram solution for injection] Route: IVPB; Rate: 100 ja5 mL/hr; Infused Over: 30 mins; Site: right forearm; 11:22 Follow up: IV Status: Completed infusion; IV Intake: 50ml jc4 Signatures: Dispatcher [employer] Rose Marie Acevedo MD MD sd1 Dora Espinosa, RN RN kpj Daniella Brady, Reg Reg gb Savannah Chopra, MILITARY AIRCRAFT DESIGNER MILITARY AIRCRAFT DESIGNER ar3 Jazmine Markham RN RN jc4 Ev David RN RN sls2 Anjum Vazquez, Reg Reg mpb Harleen Espinoza JessicaRN RN ja5 The chart was reviewed and I authenticate all verbal orders and agree with the evaluation and treatment provided.Corrections: (The following items were deleted from the chart) 11:27 09:06 Set up for triple lumen central Iine placement ordered. [email or web address] Attachments: 10:12 [facility] Payment Agreement mpb 13:57 T-Sheet-- Draft Copy r 07/22 09:42 ECG/EKG gb Chart Complete MTDD
--- NOTE | 2016-07-23 17:36 | EDDOCDS ---
Nurse's Notes [facility] Name: Mary Borja Age: 65 yrs Sex: Male : 1950 Arrival Date: 07/21/2016 Time: 08:57 Bed 1 Private MD: Jw Esteban Diagnosis: Pneumonia due to other specified bacteria Presentation: 07/21 08:59 Presenting complaint: EMS states: Upon arrival patient was not seizing, has a history ja5 of seizures last one was in 2010. Takes no seizure medications. Patient not responding appropriately. Family stated that seizure lasted 30-40 seconds. Blood sugar 137. No history of diabetes. Adult Sepsis Screening: Patient has new or worsening altered mentation (1 point). Patient has a respiratory rate of greater than or equal to 22 (1 point). Adult Sepsis Screening: Systolic blood pressure is greater than 100. Patient has a qSOFA score of 2. Suicide/Homicide risk assessment- the patient denies having any suicidal and/or homicidal ideations and does not present with any other emotional, behavioral or mental health complaints. Status: Patient is not a eligibility services representative or dependent. Transition of care: patient was received from. 08:59 Acuity: MILKA Level 3 5 08:59 Method Of Arrival: Ambulance ja5 09:08 Adult Sepsis Screening: Systolic blood pressure is less than or equal to 100 (1 point). ja5 Patient has a qSOFA score of 3. 09:24 Acuity: MILKA Level 2 ja5 10:44 Transition of care: patient was received from [facility]. jc4 Triage Assessment: 09:14 General: Appears distressed, Behavior is restless. Pain: Unable to use pain scale. ja5 FLACC scale score is 0 out of 10. Pt Declines HIV testing. Neurological: Level of Consciousness is post ictal, Oriented to none. Cardiovascular: Rhythm is sinus rhythm. Respiratory: Airway is patent Respiratory effort is labored, gasping. Derm: Skin is dry, Skin is pale. Historical: - Allergies: PENICILLINS; Erythromycin; Sudafed; Aspirin; Adhesives; antihistimines; - Home Meds: 1. Vimpat 50 mg oral tab 1 tab 2 times per day (Last dose: 07/20/2016 07:00) 2. Dulcolax (bisacodyl) 10 mg Rectal supp 1 suppository as needed day 4 wiht no BM (Last dose: Unknown) 3. fleet enema day 5 with no BM (Last dose: Unknown) 4. Milk of Magnesia Oral q3 days as needed (Last dose: Unknown) 5. Bag [place] as needed for excoriations (Last dose: Unknown) - PMHx: senile dementia; expressive language disorder; COPD; Down's Syndrome; high myopia; raynauds disease; Seizure Disorder; profound MR; Degenerative disc disease; - Social history: Smoking status: unknown if patient ever smoked tobacco. non-verbal. - Family history: Not pertinent. - : The pt / caregiver states he / she is not on anticoagulants. Home medication list is obtained from the facility AUG. - Exposure Risk Screening:: None identified. Screenin:30 Screening information is obtained from residence staff. Fall risk: At risk due to ja5 apparent cognitive impairment. Assistance ADL's: Requires assistance with meal preparation, this assistance is provided by residence staff, bathing, assistance is provided by residence staff, dressing, assistance is provided by residence staff, toileting, assistance is provided by residence staff, ambulation, assistance is provided by residence staff, housework, assistance is provided by residence staff, medication administration, assistance is provided by residence staff. Abuse/DV Screen: The patient / caregiver reports he/she is: pt cannot be assessed for living situation at this time. Nutritional screening: On heart healthy, pureed. Advance Directives: Currently, there is no health care proxy. There is no active DNR order. There is no living will. There is no Power of Concession Worker. home support is adequate. Assessment: 09:25 General: Appears distressed, Behavior is restless. Neurological: Level of Consciousness ja5 is post ictal, Oriented to none. Cardiovascular: Pulses Rhythm is sinus rhythm No ectopy. Respiratory: Airway is patent Respiratory effort is labored, Breath sounds are coarse bilaterally. Breath sounds with rhonchi bilaterally. Derm: Skin is dry, Skin is pale. 09:27 General: data entry technician at bedside for ABG. jc4 11:07 General: Patient is resting in stretcher, respirations are not as labored at this time. ja5 IV cefepime is running, 100ml NS IV bolus has been administered, Dr. Marquis has been notified of blood pressure trends. Patients is non verbal which rehab staff has stated is normal for him.. 12:20 General: Patient resting in stretcher, appears to be comfortable, respirations are even ja5 and deep. Temperature is 100.0F temporal at this time.. 13:18 General: Patient is resting in stretcher, respirations are even and deep with audible ja5 crackles. Patient opens eyes when I talk to him. He was repositioned in bed and appears to be comfortable at this time.. 14:03 General: General: Pt repositioned on stretcher, head elevated. Respiratory rate 32/min, jc4 SaO2-85-88%. Oxygen titrated, patient placed on 50% Venti-Mask, SaO2 increased to 93-94%. Dr. Oden updated on patient condition. 16:30 General: Patient in stretcher, color is pink, on venturi mask 50% WITH O2 sat 02%, ja5 breath sounds are still coarse and wet at a rate of 32. Patient was repositioned as he is restless in stretcher.Patient being transferred to room.. Vital Signs: 09:12 BP 91 / 51; Pulse 86; Resp 26; Temp 100.7(TE); Pulse Ox 93% on 6 lpm NC; Weight 45.81 ct3 kg (M); 10:11 Pulse 88 MON; Pulse Ox 94% ; ja5 10:12 BP 94 / 51 (auto/); ja5 10:14 Pulse 90 MON; Pulse Ox 94% ; ja5 10:15 BP 91 / 53 (auto/); ja5 10:29 Pulse 85 MON; Pulse Ox 93% ; ja5 10:30 BP 89 / 58 (auto/); ja5 10:44 Pulse 92 MON; Pulse Ox 100% ; ja5 10:45 BP 92 / 56 (auto/); ja5 10:59 Pulse 96 MON; Pulse Ox 96% ; ja5 11:00 BP 100 / 59 (auto/); ja5 11:14 Pulse 87 MON; Pulse Ox 95% ; ja5 11:15 BP 103 / 61 (auto/); ja5 11:26 Temp 100.2(TE); ja5 11:29 Pulse 97 MON; Pulse Ox 95% ; ja5 11:30 BP 89 / 64 (auto/); ja5 11:44 Pulse 93 MON; Pulse Ox 97% ; ja5 11:45 BP 90 / 55 (auto/); ja5 11:59 Pulse 92 MON; Pulse Ox 95% ; ja5 12:00 BP 93 / 55 (auto/); ja5 12:14 Pulse 95 MON; Pulse Ox 96% ; ja5 12:15 BP 94 / 62 (auto/); ja5 12:30 BP 94 / 68 (auto/); jc4 12:30 Pulse 97 MON; Pulse Ox 97% ; jc4 12:44 Pulse 95 MON; Pulse Ox 96% ; jc4 12:45 BP 91 / 52 (auto/); jc4 13:00 BP 81 / 54 (auto/); jc4 13:00 Pulse 90 MON; Pulse Ox 96% ; jc4 13:13 BP 127 / 61 (auto/); jc4 13:13 Pulse 94 MON; Pulse Ox 96% ; jc4 13:14 Pulse 97 MON; Pulse Ox 95% ; jc4 13:15 BP 88 / 58 (auto/); jc4 13:17 BP 127 / 61; Pulse 97; Resp 32; Pulse Ox 95% ; Pain 0/10; ja5 13:30 BP 103 / 56 (auto/); jc4 13:30 Pulse 94 MON; jc4 13:55 Pulse 90 MON; Pulse Ox 93% ; jc4 13:57 Pulse 92 MON; Pulse Ox 92% ; jc4 13:57 BP 103 / 67 (auto/); jc4 14:00 BP 97 / 64 (auto/); jc4 14:15 BP 97 / 61 (auto/); jc4 14:18 Pulse 86 MON; Pulse Ox 94% ; jc4 14:29 Pulse 89 MON; Pulse Ox 96% ; jc4 14:30 BP 96 / 62 (auto/); jc4 14:44 Pulse 93 MON; Pulse Ox 95% ; jc4 14:45 BP 93 / 65 (auto/); jc4 15:00 BP 100 / 67 (auto/); jc4 15:02 Pulse 91 MON; Pulse Ox 95% ; jc4 15:15 BP 101 / 68 (auto/); jc4 15:15 Pulse 97 MON; Pulse Ox 94% ; jc4 15:28 Pulse 91 MON; Pulse Ox 92% ; jc4 15:30 BP 100 / 67 (auto/); jc4 15:45 BP 110 / 61 (auto/); jc4 15:47 Pulse 93 MON; Pulse Ox 92% ; jc4 16:08 BP 107 / 62; Pulse 93; Resp 28; Temp 100.4(TE); Pulse Ox 93% on 50% Venturi mask; jc4 16:32 BP 107 / 59; Pulse 93; Resp 28; Pulse Ox 92% on 50% Venturi mask; jc4 Vitals: 09:12 Log In Time N/A - ambulance arrival. ct3 ED Course: 08:58 Patient visited by Savannah Chopra PCA. ar3 08:58 Patient moved to Waiting ar3 08:59 Agnieszka Lujan,MANDEEP is Primary Nurse. ar3 08:59 Jazmine Markham, MANDEEP is Primary Nurse. ar3 08:59 Jw Esteban MD is Private Physician. ar3 08:59 Patient moved to 5 ar3 09:04 Patient moved to 1 [facility] 09:04 The patient / caregiver is instructed regarding the plan of care and ED course. Seizure jc4 precautions initiated. 09:05 Rose Marie Marquis MD is Attending Physician. sd1 09:05 Patient visited by Rose Marie Marquis MD. sd1 09:05 Triage Initiated ja5 09:12 Patient has correct armband on for positive identification. Bed in low position. Side ct3 rails up X2. special procedure technologist on. Pulse ox on. NIBP on. 09:24 Portable x-ray done. jc4 09:33 Patient visited by Agnieszka Lujan RN. ja5 09:34 -Arterial Blood Gas Sent. ac1 09:38 Inserted saline lock: 18 gauge in left forearm The patient tolerated the procedure well.jc4 10:10 Chest, 1 View Returned. EDMS 10:12 [facility] Payment Agreement was scanned into [employer] and attached to record. mpb 10:32 Patient visited by Lacey Wallis PCA. ct3 10:32 Maintain field IV. Dressing intact. Site clean & dry. Gauge & site: 18g Left FA. Fortune ja5 cath inserted 16 Fr. Balloon inflated. To gravity drainage. Urine specimen collected. Patient tolerated well. 10:47 DIFFERENTIAL NO CHARGE Sent. jc4 10:52 Patient visited by Agnieszka Lujan RN. ja5 11:07 Chest, 1 View Returned. EDMS 11:07 CT Head Without Contrast Returned. EDMS 11:09 Alexandru Oden MD is Hospitalizing Provider. sd1 12:23 Patient visited by Agnieszka Lujan RN. ja5 13:57 T-Sheet-- Draft Copy was scanned into [employer] and attached to record. klr 14:46 EKG-ADULT Returned. EDMS 16:33 No procedures done that require assistance. jc4 07/22 09:42 ECG/EKG was scanned into [employer] and attached to record. gb 09:42 Trend VS was scanned into [employer] and attached to record. gb Administered Medications: 07/21 09:13 Drug: NS 0.9% 1000 ml [sodium chloride 0.9 % intravenous solution] Route: IV; Rate: jc4 bolus; Site: left forearm; 10:00 Follow up: IV Status: Completed infusion; IV Intake: 1000ml jc4 10:26 Drug: Acetaminophen 650 mg [acetaminophen 650 mg rectal suppository (1 supp)] Route: DE;ja5 11:26 Follow up: Temp 100.2 Temporal ja5 10:51 Drug: Cefepime 2 grams [cefepime 2 gram solution for injection] Route: IVPB; Rate: 100 ja5 mL/hr; Infused Over: 30 mins; Site: right forearm; 11:22 Follow up: IV Status: Completed infusion; IV Intake: 50ml jc4 Attachments: 09:42 Trend VS gb Intake: 07/21 10:00 IV: 1000.00ml; Total: 1000.00ml. jc4 11:22 IV: 50.00ml; Total: 1050.00ml. jc4 Output: 16:30 Urine: 500.00ml (Fortune); Total: 500.00ml. ja5 RT: 09:34 ABG's drawn from right brachial artery pressure held for 5 minutes no bleeding noted ac1 pressure bandage applied specimen sent pt. tolerated poorly. Order Results: Lab Order: -Arterial Blood Gas; SPEC'M 07/21/16 09:21 Test: ABG pH (ARTERIAL); Value: 7.397; Range: 7.350-7.450; Units: UNITS; Status: F Test: ABG PARTIAL PRESSURE CO2; Value: 39.0; Range: 35.0-45.0; Units: mmHg; Status: F Test: ABG PARTIAL PRESSURE O2; Value: 73.3; Range: 75.0-100.0; Abnormal: Below low normal; Units: mmHg; Status: F Test: ABG TOTAL CO2; Value: 24.7; Range: 23.0-31.0; Units: MEQ/L; Status: F Test: ABG HCO3; Value: 23.5; Range: 22.0-26.0; Units: MEQ/L; Status: F Test: ABG BASE EXCESS; Value: -1.2; Range: -2.0-2.0; Status: F Test: ABG STANDARD HCO3; Value: 23.4; Range: 22.0-26.0; Units: MEQ/L; Status: F Test: ABG O2 SATURATION; Value: 94.5; Range: 95.0-99.0; Abnormal: Below low normal; Units: %; Status: F Test: ABG DEVICE; Value: NASAL SHIRA; Status: F Lab Order: Amylase; SPEC' 07/21/16 10:07 Test: AMYLASE; Value: 47; Range: 25-115; Units: U/L; Status: F Lab Order: C Reactive Protein; SPEC' 07/21/16 10:07 Test: C REACTIVE PROTEIN QUANTITATIV; Value: 8.52; Range: 0.00-0.30; Abnormal: Above high normal; Units: MG/DL; Status: F Lab Order: CBC with Diff; SPEC 07/21/16 10:06 Test: WHITE BLOOD COUNT; Value: 7.5; Range: 4.0-10.0; Units: K/mm3; Status: F Test: RED BLOOD COUNT; Value: 3.79; Range: 4.30-6.10; Abnormal: Below low normal; Units: M/mm3; Status: F Test: HEMOGLOBIN; Value: 12.8; Range: 14.0-18.0; Abnormal: Below low normal; Units: g/dl; Status: F Test: HEMATOCRIT; Value: 39.3; Range: 42.0-52.0; Abnormal: Below low normal; Units: %; Status: F Test: MEAN CORPUSCULAR VOLUME; Value: 103.5; Range: 80.0-96.0; Abnormal: Above high normal; Units: fl; Status: F Test: MEAN CORPUSCULAR HEMOGLOBIN; Value: 33.7; Range: 27.0-33.0; Abnormal: Above high normal; Units: pg; Status: F Test: MEAN CORPUSCULAR HGB CONC; Value: 32.5; Range: 32.0-36.5; Units: g/dl; Status: F Test: RED CELL DISTRIBUTION WIDTH; Value: 14.0; Range: 11.5-14.5; Units: %; Status: F Test: PLATELET COUNT, AUTOMATED; Value: 166; Range: 150-450; Units: k/mm3; Status: F Test: NEUTROPHILS; Value: 91; Range: 35-75; Abnormal: Above high normal; Units: %; Status: F Test: BANDS; Value: 5; Range: < 11; Units: %; Status: F Test: LYMPHOCYTES; Value: 2; Range: 16-52; Abnormal: Below low normal; Units: %; Status: F Test: MONOCYTES; Value: 1; Range: 0-8; Units: %; Status: F Test: BASOPHILS; Value: 1; Range: 0-4; Units: %; Status: F Test: MACROCYTOSIS; Value: 1+; Status: F Lab Order: Lactic Acid (Lewis tube on ice); [facility] 07/21/16 10:07 Test: LACTIC ACID SEPSIS PROTOCOL; Value: 1.9; Range: 0.4-2.0; Units: MMOL/L; Status: F Lab Order: Liver Profile; [facility] 07/21/16 10:07 Test: AST/SGOT; Value: 21; Range: 15-37; Units: U/L; Status: F Test: ALT/SGPT; Value: 18; Range: 12-78; Units: U/L; Status: F Test: ALKALINE PHOSPHATASE; Value: 61; Range: 45-117; Units: U/L; Status: F Test: BILIRUBIN,TOTAL; Value: 0.9; Range: 0.2-1.0; Units: MG/DL; Status: F Test: BILIRUBIN,DIRECT; Value: 0.2; Range: 0.0-0.2; Units: MG/DL; Status: F Test: TOTAL PROTEIN; Value: 6.3; Range: 6.4-8.2; Abnormal: Below low normal; Units: GM/DL; Status: F Test: ALBUMIN; Value: 2.8; Range: 3.2-5.2; Abnormal: Below low normal; Units: GM/DL; Status: F Test: ALBUMIN/GLOBULIN RATIO; Value: 0.80; Range: 1.00-1.93; Abnormal: Below low normal; Status: F Lab Order: MED Profile; SPEC07/21/16 10:07 Test: GLUCOSE, FASTING; Value: 100; Range: 80-110; Units: MG/DL; Status: F Test: BLOOD UREA NITROGEN; Value: 17; Range: 7-18; Units: MG/DL; Status: F Test: CREATININE FOR GFR; Value: 0.92; Range: 0.70-1.30; Units: MG/DL; Status: F Test: GLOMERULAR FILTRATION RATE; Value: > 60.0; Range: >49; Status: F Test: SODIUM LEVEL; Value: 142; Range: 136-145; Units: MEQ/L; Status: F Test: POTASSIUM SERUM; Value: 3.9; Range: 3.5-5.1; Units: MEQ/L; Status: F Test: CHLORIDE LEVEL; Value: 106; Range: 98-107; Units: MEQ/L; Status: F Test: CARBON DIOXIDE LEVEL; Value: 27; Range: 21-32; Units: MEQ/L; Status: F Test: ANION GAP; Value: 9; Range: 8-16; Units: MEQ/L; Status: F Test: CALCIUM LEVEL; Value: 8.0; Range: 8.8-10.2; Abnormal: Below low normal; Units: MG/DL; Status: F Test Note: ; Units are mL/min/1.73 m2 Chronic Kidney Disease Staging per NKF: Stage I & II GFR >=60 Normal to Mildly Decreased Stage III GFR 30-59 Moderately Decreased Stage IV GFR 15-29 Severely Decreased Stage V GFR <15 Very Little GFR Left ESRD GFR <15 on PARTS COUNTER SALESPERSON Lab Order: PT/INR; SPEC07/21/16 10:07 Test: PROTHROMBIN TIME; Value: 13.5; Range: 12.3-14.5; Units: SECONDS; Status: F Test: INR; Value: 1.02; Status: F Test Note: ; THERAPUTIC HUMAN INR VALUES INDICATIONS NORMAL RANGES PROPHYLAXIS/TREATMENT OF: VENOUS THROMBOSIS 2.0-3.0 PULMONARY EMBOLISM 2.0-3.0 PREVENTION OF SYSTEMIC EMBOLISM FROM: TISSUE HEART VALVES 2.0-3.0 ACUTE MYOCARDIAL INFARCTION 2.0-3.0 VALVULAR HEART DISEASE 2.0-3.0 ATRIAL FIBRILLATION 2.0-3.0 MECHANICAL VALVES(HIGH RISK) 2.5-3.5 RECURRENT MYOCARDIAL INFARCTION 2.5-3.5 Lab Order: PTT; [facility] 07/21/16 10:07 Test: PARTIAL THROMBOPLASTIN TIME; Value: 28.2; Range: 26.6-37.1; Units: SECONDS; Status: F Lab Order: Type & Screen; [facility] 07/21/16 10:06 Test: BLOOD TYPE; Value: O POS; Status: F Test: AB SCREEN (INDIRECT LUDIVINA)GEL; Value: NEGATIVE; Status: F Lab Order: Urinalysis; [facility] 07/21/16 10:15 Test: APPEARANCE, URINE; Value: HAZY; Range: CLEAR; Status: F Test: COLOR, URINE; Value: YELLOW; Range: YELLOW; Status: F Test: PH,URINE; Value: 6.0; Range: 5.0-9.0; Units: UNITS; Status: F Test: SPECIFIC GRAVITY URINE AUTO; Value: 1.014; Range: 1.002-1.035; Status: F Test: PROTEIN, URINE AUTO; Value: NEGATIVE; Range: NEGATIVE; Units: mg/dL; Status: F Test: GLUCOSE, URINE (UA) AUTO; Value: NEGATIVE; Range: NEGATIVE; Units: mg/dL; Status: F Test: KETONE, URINE AUTO; Value: NEGATIVE; Range: NEGATIVE; Units: mg/dL; Status: F Test: UROBILINOGEN, URINE AUTO; Value: 0.2; Range: 0.0-2.0; Units: mg/dL; Status: F Test: BILIRUBIN, URINE AUTO; Value: NEGATIVE; Range: NEGATIVE; Status: F Test: NITRITE, URINE AUTO; Value: NEGATIVE; Range: NEGATIVE; Status: F Test: LEUKOCYTE ESTERASE, URINE AUTO; Value: 1+; Range: NEGATIVE; Abnormal: Above high normal; Status: F Test: BLOOD, URINE BLOOD; Value: NEGATIVE; Range: NEGATIVE; Status: F Test: WBC, URINE AUTO; Value: 15; Range: 0-3; Abnormal: Above high normal; Units: /HPF; Status: F Test: RBC, URINE AUTO; Value: 5; Range: 0-3; Abnormal: Above high normal; Units: /HPF; Status: F Test: BACTERIA, URINE AUTO; Value: 1+; Range: NEGATIVE; Abnormal: Above high normal; Status: F Test: SQUAMOUS EPITHELIAL CELL UR AU; Value: 0; Range: 0-6; Units: /HPF; Status: F Test: MUCUS, URINE; Value: SMALL; Range: NEGATIVE; Status: F Test: HYALINE CAST, URINE AUTO; Value: 0; Range: 0-1; Units: /LPF; Status: F Lab Order: -Influenza A&B Rapid Antigen - Nose; SPEC'M 07/21/16 09:59 Test: INFLUENZA A RAPID SCR by ICA; Value: INFLUENZA A RESULTS NEGATIVE; Status: F Test: INFLUENZA A RAPID SCR by ICA; Value: Comments:; Status: F Test: INFLUENZA B RAPID SCR by ICA; Value: INFLUENZA B RESULTS NEGATIVE; Status: F Test Note: ; The Influenza test is a direct rapid immunoassay for the qualitative detection of Influenza viral antigen. Cell culture (Viral Culture) testing should be considered to confirm NEGATIVE results and to assist in detecting other viruses that can provide similar clinical symptoms. Please contact the lab within 24 hours ([phone]) if confirmatory testing is desired. Lab Order: BNP; SPEC'M 07/21/16 10:07 Test: BRAIN NATRIURETIC PEPTIDE; Value: 186; Range: <100; Abnormal: Above high normal; Units: PG/ML; Status: F Lab Order: PLATELET ESTIMATE; SPEC'M 07/21/16 10:06 Test: PLATELET ESTIMATE; Value: NORMAL; Range: NORMAL; Status: F Radiology Order: Chest, 1 View Test: Chest, 1 View REASON FOR EXAMINATION: hypoxia cough; PORTABLE CHEST X-RAY: Single AP view.; ; HISTORY: Hypoxia and cough.; ; Comparison chest x-ray June 14, 2016.; ; FINDINGS: The patient is rotated somewhat to the left. Interstitial markings; are increased in both bases similar to the prior study consistent with some; degree of interstitial fibrosis. The heart is not enlarged. There is increased; density in the right infrahilar region which may be an infiltrate versus mass.; There is diffuse osteopenia. Degenerative changes are seen in the shoulders.; ; IMPRESSION:; ; Increased interstitial markings in the bases bilaterally. Fibrosis versus edema.; There is increased density in the right infrahilar region as well. Infiltrate; versus mass lesion.; ; ; Signed by; Lalit Beard MD 07/21/2016 11:03 A; Radiology Order: EKG-ADULT Test: EKG-ADULT REASON FOR EXAMINATION: weaknes; Stationary ECG Study; [facility] - ED; ; Test Date: 2016-07-21; Pat Name: MARY BORJA Department:; Room: -; Gender: M Medical Supervisor: lr; : 1950 Requested By: Rose Marie Marquis; Order Number: [id number] Reading MD: Baldo Brock; Measurements; Intervals [place]; Rate: 86 P: 78; DE: 137 QRS: -54; QRSD: 75 T: 104; QT: 275; QTc: 329; Interpretive Statements; SINUS RHYTHM WITH OCCASIONAL SUPRAVENTRICULAR PREMATURE COMPLEXES; LAD; LEFT ANTERIOR FASCICULAR BLOCK; NONSPECIFIC ST T-WAVE ABNORMALITY; ; Electronically Signed On 07-21-2016 14:31:34 EST by Baldo Brock; Radiology Order: CT Head Without Contrast Test: CT Head Without Contrast REASON FOR EXAMINATION: altered mental status; CT BRAIN WITHOUT CONTRAST:; ; HISTORY: Altered mental status.; ; Comparison CT study is from March 19, 2014.; ; FINDINGS: Bone window settings show no acute abnormality. There is moderate; diffuse cerebral atrophy and concordant ventricular enlargement. There is no; evidence of intracranial hemorrhage. No extra-axial fluid collection is seen.; No mass, infarct or midline shift is seen.; ; IMPRESSION: Moderate diffuse atrophy. Vascular calcification. No acute; intracranial lesion.; ; ; Signed by; Lalit Beard MD 07/21/2016 12:09 P; Outcome: 11:09 Decision to Hospitalize by Provider. sd1 16:33 Discharge Assessment: patient administered narcotics - no. The following High Risk jc4 Discharge criteria are identified: None. Admitted to PCU accompanied by nurse, accompanied by tech, via stretcher, with oxygen, on monitor, with chart. Condition: stable. No special radiology studies were completed. Admission hand-off: Report Faxed Fax receipt verified by Aditya. Property :Personal belongings accompany Pt. 16:35 Patient left the ED. ar3 Signatures: Dispatcher [employer] EDRose Marie Wade MD MD sd1 Dora Espinosa, RN RN kpj Daniella Brady, Reg Reg gb Isela,Zeynep,RT RT ac1 Savannah Chopra, REIMBURSEMENT REPRESENTATIVE REIMBURSEMENT REPRESENTATIVE ar3 Jazmine Markham, RN RN jc4 Lacey Wallis, REIMBURSEMENT REPRESENTATIVE REIMBURSEMENT REPRESENTATIVE ct3 Anjum Vazquez, Reg Reg mpHarleen Hager Jessica,RN RN ja5 Corrections: (The following items were deleted from the chart) 14:14 14:03 General: jc4 jc4 14:17 14:03 General: jc4 jc4 16:12 16:08 BP 107 / 62; Pulse 93bpm; Pulse Ox 93% 02 50% Venturi mask; Temp 100.4F Temporal; jc4 jc4 Chart Complete MTDD
[2016-07-23] MEDS: ENOXAPARIN 40 MG/0.4 ML SYRINGE (J1650) SC SCH (21:03)
[2016-07-24] VITALS (10 sets, daily range): BP systolic 119–153; BP diastolic 56–90; O2SAT 98
[2016-07-24] MEDS: KCL 20MEQ in NS 1000ML 1,000 ML IV SCH ×2 (02:51→09:08)
[2016-07-24] MEDS: LEVALBUTEROL 1.25 MG/0.5 ML CONCENTRATE NEB INH SCH ×6 (03:30→23:32)
[2016-07-24 05:01] LABS: MEAN CORPUSCULAR HEMOGLOBIN 33.7 pg (27.0-33.0); MEAN CORPUSCULAR HGB CONC 32.8 g/dl (32.0-36.5); MEAN CORPUSCULAR VOLUME 102.7 fl (80.0-96.0); RED CELL DISTRIBUTION WIDTH 13.7 % (11.5-14.5); WHITE BLOOD COUNT 14.5 K/mm3 (4.0-10.0)
[2016-07-24 05:11] LABS: ALBUMIN 2.6 GM/DL (3.2-5.2); ALBUMIN/GLOBULIN RATIO 0.79 (1.00-1.93); ALKALINE PHOSPHATASE 113 U/L (45-117); ALT/SGPT 115 U/L (12-78); ANION GAP 8 MEQ/L (8-16); AST/SGOT 107 U/L (15-37); BILIRUBIN,TOTAL 1.1 MG/DL (0.2-1.0); BLOOD UREA NITROGEN 24 MG/DL (7-18); CALCIUM LEVEL 8.4 MG/DL (8.8-10.2); CARBON DIOXIDE LEVEL 24 MEQ/L (21-32); CHLORIDE LEVEL 114 MEQ/L (98-107); CHOLESTEROL LEVEL 133 MG/DL (< 200); CREATININE FOR GFR 0.77 MG/DL (0.70-1.30); GLOMERULAR FILTRATION RATE > 60.0 (>49); GLUCOSE, FASTING 105 MG/DL (80-110); PHOSPHORUS LEVEL 2.3 MG/DL (2.5-4.9); POTASSIUM SERUM 3.9 MEQ/L (3.5-5.1); SODIUM LEVEL 146 MEQ/L (136-145); TOTAL PROTEIN 5.9 GM/DL (6.4-8.2); TRIGLYCERIDES LEVEL 88 MG/DL (<150)
[2016-07-24 05:27] LABS: ABG BASE EXCESS -1.4 (-2.0-2.0); ABG HCO3 21.8 MEQ/L (22.0-26.0); ABG PARTIAL PRESSURE CO2 31.3 mmHg (35.0-45.0); ABG PARTIAL PRESSURE O2 105.1 mmHg (75.0-100.0); ABG STANDARD HCO3 23.4 MEQ/L (22.0-26.0); ABG TOTAL CO2 22.7 MEQ/L (23.0-31.0)
[2016-07-24] MEDS: HumaLOG INSULIN (NovoLOG) PER UNIT SC SCH ×5 (05:43→23:25)
[2016-07-24] MEDS: methylPREDNISolone INJ 125 MG/2 ML VIAL (J2930) IV SCH (05:43)
--- NOTE | 2016-07-24 08:36 | IPNPDOC ---
Subjective Subjective Date Seen The patient was seen on 07/24/16. CC/HPI The patient is a 65-year-old male admitted with a reason for visit of Community Acquired Pneumonia. Events since last encounter Pt nonverbal. General: Reports: ROS Unobtainable Objective Physical Examination General Exam: Positive: No Acute Distress Neck Exam: Positive: Supple, Negative: JVD Chest Exam: Positive: Diminished Heart Exam: Positive: Rate Normal, Regular Rhythm Abdomen Exam: Positive: Normal bowel sounds, Soft, Negative: Tenderness Extremity Exam: Negative: Edema Assessment /Plan Problems Problems: (1) Community acquired pneumonia Status: Acute Problem Text: 07/24 - Aspiration pneumonia. Pulmonary following and pt was extubated yesterday. On Cefepime. 07/23 - Aspiration pneumonia. Was intubated yesterday. Pulmonary following. On Cefepime. 07/22 - baseline SaO2 98-100% on RA! 07/22/16 continues to require 10L HF O2 to maintain SaO2 high 90s 07/22/16 nasal PCR coronavirus Oc43 (3 [facility] patients inpx c same serotype) 07/22 - CXR from 07/21: "Increased interstitial markings in the bases bilaterally. Fibrosis versus edema. There is increased density in the right infrahilar region as well. Infiltrate versus mass lesion." Possible aspiration, therefore, D2 IV Cefepime. On Solumedrol. On Nebs. (2) Seizure disorder Status: Chronic Problem Specific Plan: Monitor Clinically Problem Text: On Vimpat. (3) Intellectual disability Status: Chronic Problem Specific Plan: Monitor Clinically (4) Lung nodule Permanent Comment: RLL NC nodule-stable from 02/2012 to 02/2015 CT chest c contrast Last Edited By: Rafi Mullen MD on Jul 22, 2016 13:57 Status: Chronic Response to Treatment: Stable (5) Elevated LFTs Status: Acute Problem Specific Plan: Monitor Clinically, Repeat Labs Problem Text: LFTs elevated. AST 107/ALT 115. Check Liver U/S. 07/24/16: U/S c/w cholecystitis (acalculous) vs ascites. Liver changes suggestive and increased WBC c/w cholecystitis. Will add Metronidazole. If any worsening consider percutaneous drainage. Hopefully with antibiotic addition and resumption of po intake, GB function will improve and surgical intervention can be avoided. Plan/VTE VTE Prophylaxis Ordered?: Yes VS, I&O, 24H, [facility] Vital Signs/I&O VS/I&O Vital Signs Date Time Temp Pulse Resp B/P Pulse Ox O2 Delivery O2 Flow Rate FiO2 07/24/16 06:00 82 22 129/70 98 Nasal Cannula 2.0 07/24/16 04:00 97.1 07/23/16 11:00 40 I&O- Last 24 Hours up to 6 AM 07/24/16 06:00 Intake Total 2910 ml Output Total 1315 ml Balance 1595 ml Laboratory Data 24H LABS Laboratory Tests 2 07/23/16 11:35: Bedside Glucose (Misc Panel) 123H 07/23/16 17:32: Bedside Glucose (Misc Panel) 113 07/23/16 23:36: Bedside Glucose (Misc Panel) 95 07/24/16 04:43: Blood Urea Nitrogen 24H, Creatinine 0.77, Sodium Level 146H, Potassium Level 3.9 , Chloride Level 114H, Carbon Dioxide Level 24, Calcium Level 8.4L, Phosphorus Level 2.3#L, Aspartate Amino Transf (AST/SGOT) 107H, Alanine Aminotransferase ( ALT/SGPT) 115H, Lactate Dehydrogenase 265H, Total Creatine Kinase 184#, Alkaline Phosphatase 113, Total Bilirubin 1.1#H, Triglycerides Level 88, Cholesterol Level 133, Total Protein 5.9L, Albumin 2.6L, Albumin/Globulin Ratio 0.79L, Anion Gap 8, Glomerular Filtration Rate > 60.0 07/24/16 05:16: Arterial Blood pH 7.460H, Arterial Blood Partial Pressure CO2 31.3L, Arterial Blood Partial Pressure O2 105.1H, Arterial Blood Total CO2 22.7L, Arterial Blood HCO3 21.8L, Arterial Blood Base Excess -1.4, Arterial Blood Oxygen Saturation 98.2, Blood Gas Bicarbonate Standard 23.4 07/24/16 05:41: Bedside Glucose (Misc Panel) 99 CBC/BMP Laboratory Tests 07/24/16 04:43 Calcium Level 8.4 L, Phosphorus Level 2.3 #L, Aspartate Amino Transf (AST/SGOT) 107 H, Alanine Aminotransferase (ALT/SGPT) 115 H, Lactate Dehydrogenase 265 H, Total Creatine Kinase 184 #, Alkaline Phosphatase 113, Total Bilirubin 1.1 #H, Triglycerides Level 88, Cholesterol Level 133, Total Protein 5.9 L, Albumin 2.6 L, Red Blood Count 3.26 L, Mean Corpuscular Volume 102.7 H, Mean Corpuscular Hemoglobin 33.7 H, Mean Corpuscular Hemoglobin Concent 32.8, Red Cell Distribution Width 13.7 Microbiology Microbiology 07/21/16 Blood Culture - Preliminary, Resulted No Growth after 48 hours. All Specime... 07/21/16 Blood Culture - Preliminary, Resulted No Growth after 48 hours. All Specime... 07/22/16 Gram Stain - Final, Resulted 07/22/16 Sputum Culture - Preliminary, Resulted Staphylococcus Aureus Yeast Like Organism 07/22/16 MRSA Screen - Final, Complete 07/22/16 Respiratory Virus Panel (PCR) (JABIER) - Final, Complete Coronavirus Oc43 07/21/16 Influenza Virus Type A Antigen - Final, Complete 07/21/16 Influenza Virus Type B Antigen - Final, Complete 07/21/16 Urine Culture, Received Pending Attending Note Attending Note Patient seen and examined. Agree with findings and plan as amended. Care d/w Critical Care Attending, Dr. Briggs. Magdy Marie Jul 24, 2016 08:36 Jw Esteban MD Jul 24, 2016 14:06
--- NOTE | 2016-07-24 08:41 | REP ---
Portable chest, 06:22 a.m., 07/24/2016: Comparison is 07/23/2016. The endotracheal tube and nasogastric tube have been removed. Bilateral infiltrates are again noted, unchanged. Cardiac size is normal. The alf, mediastinum, and bony thorax are unremarkable. Signed by Benjy Locke MD 07/24/2016 08:26 A
[2016-07-24] MEDS: LACOSAMIDE 50 MG TAB (VIMPAT) PO SCH ×2 (09:08→21:31)
[2016-07-24] MEDS: PANTOPRAZOLE 40MG INJ (PROTONIX) (C9113) IV SCH (09:08)
[2016-07-24] MEDS: CEFEPIME HCL 2 GM in D5W MINI-BAG PLUS 50 ML IV SCH ×2 (09:08→21:31)
--- NOTE | 2016-07-24 10:52 | REP ---
In the abdominal right upper quadrant ultrasound: Comparison is the CT of the abdomen and pelvis dated 11/30/2011. There is no cholelithiasis. The gallbladder wall is diffusely thickened measuring up to 10 mm. This is nonspecific and could be a gallbladder wall edema or could be secondary to ascites. There is a small volume of ascites adjacent to the liver. There is no intrahepatic or extrahepatic biliary duct dilatation, the common duct is 5 mm in diameter. The hepatic parenchyma is homogeneous and unremarkable. The visualized portion of the pancreatic head is unremarkable. There is no right renal hydronephrosis, calculus, mass or cyst. The right kidney is normal size 11.4 cm craniocaudad length. Impression: Diffuse gallbladder wall thickening measuring up to 10 mm, nonspecific, gallbladder wall edema (acalculous cholecystitis) versus secondary to ascites. There is no cholelithiasis or biliary duct dilatation. Consider radionuclide biliary scan. The study is technically difficult because of the patient's inability to breath hold, remain quiescent during the exam and inability to assume with decubitus positioning. Signed by Benjy Locke MD 07/24/2016 10:44 A
[2016-07-24] MEDS: KCL 20MEQ IN 0.45NS 1000ML 1,000 ML IV SCH (15:06)
[2016-07-24] MEDS: metroNIDAZOLE 500 MG in APPROPRIATE DILUENT 1 EA IV SCH ×2 (15:06→23:25)
[2016-07-24] MEDS ORDERED: DEXTROSE 50% 50 ML SYRINGE IV PRN (17:00)
[2016-07-24] MEDS ORDERED: GLUCAGON FOR INJ 1 MG VIAL (J1610) SC PRN (17:00)
[2016-07-24] MEDS ORDERED: GLUCOSE 4 GM CHEW TABLET PO PRN (17:00)
[2016-07-24] MEDS: ENOXAPARIN 40 MG/0.4 ML SYRINGE (J1650) SC SCH (21:31)
[2016-07-25] VITALS (49 sets, daily range): BP systolic 74–144; BP diastolic 47–81; O2SAT 99–100
[2016-07-25] MEDS: KCL 20MEQ IN 0.45NS 1000ML 1,000 ML IV SCH ×2 (01:51→14:12)
[2016-07-25] MEDS: LEVALBUTEROL 1.25 MG/0.5 ML CONCENTRATE NEB INH SCH ×6 (03:57→23:16)
[2016-07-25 04:44] LABS: MEAN CORPUSCULAR HEMOGLOBIN 33.6 pg (27.0-33.0); MEAN CORPUSCULAR HGB CONC 33.1 g/dl (32.0-36.5); MEAN CORPUSCULAR VOLUME 101.6 fl (80.0-96.0); RED CELL DISTRIBUTION WIDTH 13.9 % (11.5-14.5)
[2016-07-25 04:59] LABS: ALBUMIN 2.5 GM/DL (3.2-5.2); ALBUMIN/GLOBULIN RATIO 0.76 (1.00-1.93); ALKALINE PHOSPHATASE 90 U/L (45-117); ALT/SGPT 76 U/L (12-78); ANION GAP 9 MEQ/L (8-16); AST/SGOT 40 U/L (15-37); BILIRUBIN,TOTAL 1.3 MG/DL (0.2-1.0); BLOOD UREA NITROGEN 20 MG/DL (7-18); CALCIUM LEVEL 8.2 MG/DL (8.8-10.2); CARBON DIOXIDE LEVEL 25 MEQ/L (21-32); CHLORIDE LEVEL 109 MEQ/L (98-107); CHOLESTEROL LEVEL 133 MG/DL (< 200); CREATININE FOR GFR 0.72 MG/DL (0.70-1.30); GLOMERULAR FILTRATION RATE > 60.0 (>49); GLUCOSE, FASTING 51 MG/DL (80-110); PHOSPHORUS LEVEL 1.3 MG/DL (2.5-4.9); POTASSIUM SERUM 3.5 MEQ/L (3.5-5.1); SODIUM LEVEL 143 MEQ/L (136-145); TOTAL PROTEIN 5.8 GM/DL (6.4-8.2); TRIGLYCERIDES LEVEL 83 MG/DL (<150)
[2016-07-25] MEDS: HumaLOG INSULIN (NovoLOG) PER UNIT SC SCH ×3 (05:50→18:00)
[2016-07-25] MEDS: metroNIDAZOLE 500 MG in APPROPRIATE DILUENT 1 EA IV SCH ×3 (06:06→23:22)
--- NOTE | 2016-07-25 08:09 | ECWPNAD ---
PATIENT NAME: MARY BORJA : 1950 GENDER: MALE VISIT DATE: 07/21/2016 DISCHARGE DATE: 07/21/16 0000 VISIT LOCKED DATE TIME: PHYSICIAN: MILAD SNYDER RESOURCE: MILAD SNYDER REASON FOR APPOINTMENT 1. ADMIT H + P HISTORY OF PRESENT ILLNESS GENERAL: MIGHT HAVE HAD A SEIZURE OVERNIGHT. WAS LETHARGIC PER [facility] STAFF, BROUGHT TO ER, WAS FOUND TO HAVE INFILTRATE ON CXR. BP WAS LOW HX, [facility] STAFF PRESENT WAS LACKING DETAILS. CURRENT MEDICATIONS TAKING DULCOLAX 10 MG SUPPOSITORY 1 SUPPOSITORY NEEDED FOR CONSTIPATION RECTAL ON DAY 4 IF NO BM, NOTES: * TAKING MILK OF MAGNESIA STAFF UNSURE SUSPENSION 30 ML ORALLY PRN, NOTES: * TAKING FLEET ENEMA 7-19 GM/118ML ENEMA DIRECTED RECTAL ON DAY 5 IF NO BM, NOTES: * TAKING ZETAR 1 % SHAMPOO EXTERNALLY TAKING VIMPAT 50 MG TABLET 1 TABLET ORALLY TWICE A DAY, NOTES: *DR SERRANO TAKING ENSURE - LIQUID DIRECTED ORALLY BID TAKING CELEXA 10 MG TABLET 1 TAB(S) ORALLY ONCE A DAY, NOTES: * TAKING TYLENOL 500MG TABLET 2 TAB ORALLY BID, NOTES: * TAKING VITAMIN D 1000 UNIT TABLET 1 TABLET ORALLY ONCE A DAY TAKING LACRI-LUBE S.O.P. 1/4 RIBBON OINTMENT DIRECTED OPHTHALMIC QHS, NOTES: * TAKING POLYETHYLENE GLYCOL 3350 - POWDER MIX 17 GRAMS WITH 8 OZ OF FLUID AND DRINK ONCE DAILY (IF DIARRHEA OCCURS, MAY GIVE EVERY OTHER DAY) TAKING CALCIUM 600 + D 600-400 MG-UNIT TABLET 1 TABLET ORALLY BID, NOTES: * TAKING SENNA 1 TABLET 3TABS ORALLY QHS, NOTES: * TAKING MIRALAX 17 GMS POWDER DIRECTED 17 GMS ORALLY QD (IF DIARRHEA MAY BACK TO EVERY OTHER DAY), NOTES: * TAKING BAG BALM OTC 1 CAN TOPICALLY DAILY TAKING TRAZODONE 50 50MG TABLET 1 TAB(S) ORALLY DAILY, NOTES: CHAR TAKING MACROBID 100 MG CAPSULE 1 CAPSULE WITH FOOD ORALLY EVERY 12 HRS TAKING MULTIVITAMINS 1 TABLET DIRECTED ORALLY DAILY PAST MEDICAL HISTORY NON DISPLASED FEMUR FRACTURE OSTEOPOROSIS DERMATOPHYTOSIS OF NAIL TORTICOLLIS, UNSPECIFIED SEIZURE D/O, FOLLOWED BY NEURP/DR SERRANO DDD L/S SPINE RIGHT LOWER LOBE LUNG NODULE CT 9009-1136, STABLE OVER 3 YR INTERVAL HX GI BLEED HYPERLIPIDEMIA DEMENTIA (? HOW THIS IS BEING DIAGNOSED) ALLERGIES PENICILLIN: RASH: ALLERGY ERYTHROMYCIN: UPSET STOMACH: ALLERGY SUDAFED: RASH: ALLERGY ASPIRIN: UNSURE: ALLERGY ADHESIVE TAPE: RASH: ALLERGY LEVAQUIN: RASH: ALLERGY EXAMINATION GENERAL EXAMINATION: GENERAL APPEARANCE:LYING ON BED IN ER LOOKS WELL, NO ACUTE DISTRESS, NOT SEPTIC APPEARING. NONVERBAL. PSYCHAWAKE BUT NO VERBALIZING OR RSPONSIVE. HEENT:UNREMARKABLE. FACE:UNREMARKABLE. ORAL CAVITY: TONGUE, ORAL MUCOSA DRY. NECK:NO LYMPHADENOPATHY, SUPPLE. LUNGS:BILATERAL RHONCHI, , BILATERAL WHEEZES, DECREASED AIR ENTRY AT BASES. HEART:NO MURMURS, REGULAR RATE AND RHYTHM. ABDOMEN:SOFT, BOWEL SOUNDS PRESENT. EXTREMITIES:NO CLUBBING, NO EDEMA. SKIN:NORMAL, NO RASH. LAB TESTS REVIEWEDLABS FROM WERE REVIEWED . DIAGNOSTIC TESTS REVIEWEDCXR REPORT. ASSESSMENTS CAP (COMMUNITY ACQUIRED PNEUMONIA) - J18.9 (PRIMARY) SEIZURE DISORDER - G40.909 DOWN'S SYNDROME - Q90.9 SOLITARY PULMONARY NODULE - R91.1 HYPERLIPIDEMIA - E78.5 DEMENTIA W BEHAVIOR DIST - F03.91 RAYNAUD'S SYNDROME - I73.00 TREATMENT CAP (COMMUNITY ACQUIRED PNEUMONIA) CLINICAL NOTES: COULD HAVE ASPIRATED WITH THE POSSIBLE UNWITNESSED SEIZURE. WILL TREAT IF ASPIRATION. SEIZURE DISORDER CLINICAL NOTES: CONTINUE MEDS; SEIZURE PRECAUTIONS. SOLITARY PULMONARY NODULE CLINICAL NOTES: STABLE 3616-4940; NO F/U NEEDED. DEMENTIA W BEHAVIOR DIST CLINICAL NOTES: I HAVENO IDEA HOW THE DX OF DEMENTIA WAS MADE ON THIS PT. PROCEDURE CODES ADM00 ADM HOSPITAL ADMISSION FOLLOW UP PRN ELECTRONICALLY SIGNED BY MILAD SNYDER MD ON 07/23/2016 AT 09:18 AM EST DISCLAIMER : THIS IS A VISIT SUMMARY EXTRACTED FROM THE [facility] CHART. IT IS NOT A COPY OF THE [facility] PROGRESS NOTE. MTDD
--- NOTE | 2016-07-25 08:23 | IPNPDOC ---
Subjective General Date Seen The patient was seen on 07/25/16. Subjective Chief Complaint/HPI The patient is a 65-year-old male admitted with a reason for visit of Community Acquired Pneumonia. Events since last encounter Pt nonverbal. Pt sleeping. General: Reports: ROS Unobtainable Objective Physical Examination General Exam: Positive: No Acute Distress Neck Exam: Positive: Supple, Negative: JVD Chest Exam: Positive: Diminished Heart Exam: Positive: Rate Normal, Regular Rhythm Abdomen Exam: Positive: Normal bowel sounds, Soft, Negative: Tenderness Extremity Exam: Negative: Edema Assessment /Plan Problems Problems: (1) Community acquired pneumonia Status: Acute Problem Text: 07/25 - Aspiration Pneumonia. Pulmonary following. On Cefepime. Pt was re-intubated today as it is felt he re-aspirated. WBC up to 19 today. Hypoxic. Pt was made NPO again. May need a PEG. Pt's sister Lisa Yanez is reportedly the decision maker for this pt. #[phone] (cell), (home). 07/24 - Aspiration pneumonia. Pulmonary following and pt was extubated yesterday. On Cefepime. 07/23 - Aspiration pneumonia. Was intubated yesterday. Pulmonary following. On Cefepime. 07/22 - baseline SaO2 98-100% on RA! 07/22/16 continues to require 10L HF O2 to maintain SaO2 high 90s 07/22/16 nasal PCR coronavirus Oc43 (3 [facility] patients inpx c same serotype) 07/22 - CXR from 07/21: "Increased interstitial markings in the bases bilaterally. Fibrosis versus edema. There is increased density in the right infrahilar region as well. Infiltrate versus mass lesion." Possible aspiration, therefore, D2 IV Cefepime. On Solumedrol. On Nebs. (2) Elevated LFTs Status: Acute Problem Specific Plan: Monitor Clinically, Repeat Labs Problem Text: 07/25 - LFTs trending down. U/S showed Gb wall thickening. C/W acalculous cholecystitis vs ascites. Metronidazole was added yesterday. WBC count up today to 19. Plan to recheck GB U/S today. May need to consider surgical consult. D/W attending. 07/24 - LFTs elevated. AST 107/ALT 115. Check Liver U/S. 07/24/16: U/S c/w cholecystitis (acalculous) vs ascites. Liver changes suggestive and increased WBC c/w cholecystitis. Will add Metronidazole. If any worsening consider percutaneous drainage. Hopefully with antibiotic addition and resumption of po intake, GB function will improve and surgical intervention can be avoided. (3) Seizure disorder Status: Chronic Problem Specific Plan: Monitor Clinically Problem Text: On Vimpat. (4) Intellectual disability Status: Chronic Problem Specific Plan: Monitor Clinically (5) Lung nodule Permanent Comment: RLL NC nodule-stable from 02/2012 to 02/2015 CT chest c contrast Last Edited By: Rafi Mullen MD on Jul 22, 2016 13:57 Status: Chronic Response to Treatment: Stable Plan/VTE VTE Prophylaxis Ordered?: Yes VS, I&O, 24H, Fishbone Vital Signs/I&O Vital Signs Date Time Temp Pulse Resp B/P Pulse Ox O2 Delivery O2 Flow Rate FiO2 07/25/16 06:00 94 32 120/76 92 Nasal Cannula 5.0 07/25/16 04:00 97.1 07/25/16 02:30 40 I&O- Last 24 Hours up to 6 AM 07/25/16 06:00 Intake Total 2220 ml Output Total 1500 ml Balance 720 ml Laboratory Data 24H LABS Laboratory Tests 2 07/24/16 11:42: Bedside Glucose (Misc Panel) 167H 07/24/16 16:50: Bedside Glucose (Misc Panel) 110 07/24/16 23:17: Bedside Glucose (Misc Panel) 136H 07/25/16 04:30: Blood Urea Nitrogen 20H, Creatinine 0.72, Sodium Level 143, Potassium Level 3.5 , Chloride Level 109H, Carbon Dioxide Level 25, Calcium Level 8.2L, Phosphorus Level 1.3#L, Aspartate Amino Transf (AST/SGOT) 40H, Alanine Aminotransferase ( ALT/SGPT) 76, Lactate Dehydrogenase 244H, Total Creatine Kinase 169, Alkaline Phosphatase 90, Total Bilirubin 1.3H, Triglycerides Level 83, Cholesterol Level 133, Total Protein 5.8L, Albumin 2.5L, Albumin/Globulin Ratio 0.76L, Anion Gap 9 , Glomerular Filtration Rate > 60.0 CBC/BMP Laboratory Tests 07/25/16 04:30 Calcium Level 8.2 L, Phosphorus Level 1.3 #L, Aspartate Amino Transf (AST/SGOT) 40 H, Alanine Aminotransferase (ALT/SGPT) 76, Lactate Dehydrogenase 244 H, Total Creatine Kinase 169, Alkaline Phosphatase 90, Total Bilirubin 1.3 H, Triglycerides Level 83, Cholesterol Level 133, Total Protein 5.8 L, Albumin 2.5 L, Red Blood Count 3.08 L, Mean Corpuscular Volume 101.6 H, Mean Corpuscular Hemoglobin 33.6 H, Mean Corpuscular Hemoglobin Concent 33.1, Red Cell Distribution Width 13.9 Microbiology Microbiology 07/21/16 Blood Culture - Preliminary, Resulted No Growth after 72 hours. All specime... 07/21/16 Blood Culture - Preliminary, Resulted No Growth after 72 hours. All specime... 07/22/16 Gram Stain - Final, Complete 07/22/16 Sputum Culture - Final, Complete Staphylococcus Aureus Yeast Like Organism 07/22/16 MRSA Screen - Final, Complete 07/22/16 Respiratory Virus Panel (PCR) (JABIER) - Final, Complete Coronavirus Oc43 07/21/16 Influenza Virus Type A Antigen - Final, Complete 07/21/16 Influenza Virus Type B Antigen - Final, Complete 07/21/16 Urine Culture, Received Pending Attending Note Attending Note Patient seen and Mr Marie's note reviewed. Agree with findings and plan. Patient does not have a NG in place so may need to move sooner for creation of PEG feeding tube. Consult initiated with Dr. Kelly from Gen Surg. Reviewed with his sister who is guardian and she understands need for procedure and is agreeable to same. She was advised that at some point in near future the Surgeon would contact her for formal consent. Magdy Marie Jul 25, 2016 08:23 Jw Esteban MD Jul 25, 2016 14:55
[2016-07-25] MEDS: PANTOPRAZOLE 40MG INJ (PROTONIX) (C9113) IV SCH (08:31)
[2016-07-25] MEDS: LACOSAMIDE 50 MG TAB (VIMPAT) PO SCH ×2 (08:31→21:42)
[2016-07-25] MEDS ORDERED: ETOMIDATE INJ 20MG/10ML VIAL As Ordered ONE (09:04)
[2016-07-25] MEDS ORDERED: SUCCINYLCHOLINE INJ 200 MG/10 ML VIAL (J0330) As Ordered ONE (09:06)
--- NOTE | 2016-07-25 09:18 | REP ---
Portable chest, 09:00 a.m., single AP view, the patient semi upright: Comparisons 07/24/2016. There are diffuse bilateral interstitial and alveolar infiltrates, significantly worsened from the prior study, cardiogenic versus noncardiogenic. No pleural effusions are identified. Cardiac size appears normal. Impression: Significantly worsened diffuse bilateral alveolar and interstitial infiltrates. Signed by Benjy Locke MD 07/25/2016 09:09 A
[2016-07-25] MEDS ORDERED: MORPHINE 2 MG/ML 1ML SYRINGE IV PRN (09:30)
--- NOTE | 2016-07-25 09:55 | REP ---
Sitting AP chest x-ray: Single view. History: Post intubation. Comparison study of 9:00 a.m. on July 25, 2016. Findings: An endotracheal tube is seen in good position at the level of the bottom of the aortic arch. EKG electrodes are seen. There is extensive bilateral patchy infiltrate pattern unchanged. No new infiltrate is seen. Impression: Endotracheal tube in place. Extensive bilateral infiltrates unchanged. Signed by Lalit Beard MD 07/25/2016 12:23 P
[2016-07-25] MEDS: CEFEPIME HCL 2 GM in D5W MINI-BAG PLUS 50 ML IV SCH ×2 (10:01→21:42)
--- NOTE | 2016-07-25 10:09 | CCN ---
DATE OF SERVICE: 07/25/2016 Critical care time was 1 hour. This excludes all procedures. I was urgently called to the patient's bedside due to respiratory distress. The patient had retractions, difficulty with oxygenation and had decreased level of consciousness. It was determined at that point in time to intubate the patient. Chest x-ray just prior to intubation showed worsening aspiration pneumonia. He had been started on a diet yesterday and the patient has known difficulty with swallowing. Intubation was performed by the resident while I was at her side. After intubation, oxygen saturations improved. He was placed on volume control with 6 mL/kg tidal volumes. Given the severity of his aspiration on his chest x-ray this would explain his significant increase in his white blood cell count likely from aspiration pneumonitis/pneumonia. He is already on cefepime. He has had no hypotension. No evidence of septic shock. PHYSICAL EXAMINATION: Temperature is 97.1, blood pressure is 120/76, heart rate 94, respiratory rate was 32-40 prior to intubation, his oxygen requirements were increasing, early this morning was 92% on 5 liters and then in the 80% range. GENERAL: The patient is less responsive this morning, agitated, retracting, having difficulty breathing. HEENT: Sclerae clear and anicteric. Pupils were approximately 4 mm and reactive to light. Mucous membranes were dry. Tongue was midline. NECK: Supple. No tracheal deviation or mass. No elevated jugular venous pressure (JVP). LYMPHATICS: No cervical, supraclavicular, or axillary adenopathy. CARDIAC: Regular S1, S2, without audible murmur, rub or gallop. No elevated JVP. No peripheral edema. PULMONARY: Diffuse rhonchi throughout both lung novak with decreased air entry. Significant accessory muscle use. ABDOMEN: Thin, scaphoid, without discernible hepatosplenomegaly. No masses or hernia. No tenderness over the palpation of the abdomen. Bowel sounds were hypoactive. EXTREMITIES: No cyanosis, clubbing or edema. SKIN: Pale, without rashes, jaundice or bruising. Chest x-ray shows bilateral infiltrates worsened compared to previous films. Liver ultrasound reviewed as of yesterday showing wall thickening and suggesting acalculous cholecystitis with some minimal erica hepatic ascites. Sodium is 143, potassium is 3.5, chloride is 109, bicarbonate 25, BUN of 20, creatinine of 0.72, glucose of 51, with a fingerstick blood glucose of 60, white blood cell count went from 14.5-19.0, hemoglobin is now 10.4, with hematocrit of 31.3, platelet count of 172, calcium of 8.02. He is hypophosphatemic with a phosphorus of 1.3 and total bilirubin is elevated to 1.3 from 1.1, AST, ALT however, are trending down. Sputum grew very little Staphylococcus and yeast. Initially viral screen was positive for coronavirus. IMPRESSION: 1. Acute hypoxic respiratory failure with a second aspiration event after restarting thickened liquids. Will continue on mechanical ventilation until the patient is able to clear secretions. I have an expectation that he will have recurrent aspiration pneumonia even if we do place a percutaneous endoscopic gastrostomy (PEG) tube. This will likely be a chronic problem for him. 2. Hypernatremia. Sodium is decreased with the change in IV fluids. 3. Leukocytosis, most likely from aspiration pneumonitis/pneumonia. Liver function tests (LFTs) have come down therefore I believe he is adequately being treated for the possibility of acalculous cholecystitis. However, this remains a concern and will be watched closely. He remains on cefepime and Flagyl. 4. Deep venous thrombosis (DVT) prophylaxis with Lovenox. Gastrointestinal (GI) prophylaxis with Protonix. 5. Protein malnourishment. Will initiate tube feeds through an orogastric (OG) tube and monitor for aspiration and high residuals. 6. Hypophosphatemia. Will replace by mouth. Critical care as mentioned above. This excludes all procedures.
--- NOTE | 2016-07-25 10:13 | RO ---
DATE OF PROCEDURE: 07/25/2016 PREOPERATIVE DIAGNOSIS: Respiratory distress. POSTOPERATIVE DIAGNOSIS: Respiratory distress. PROCEDURE: GlideScope assisted rapid sequence endotracheal intubation. SURGEON: Vipul Arreaga DO HEAD WAITER/WAITRESS: Víctor Briggs DO DESCRIPTION OF PROCEDURE: Patient was in respiratory distress and therefore intubation was done emergently at bedside. Rapid sequence intubation was performed with etomidate and succinylcholine. He was more hypoxic, now requiring 6 liters of oxygen. He was intubated at bedside with than 8.0 endotracheal tube, 24 at the lip. Posterior pharynx was visualized with dry secretions. Placement was confirmed with direct visualization, tidal CO2 monitoring and auscultation. Chest x-ray is pending. Oxygen saturations have improved. Breathing is rested and symmetric. He is currently on the settings of volume control with tidal volume 360mL, respiratory rate 22, PEEP of 5, oxygenation at 50%. Please refer to critical care note for further details. My preceptor for this patient encounter was Dr. Víctor Briggs. The preceptor was physically present in the room during the encounter and was fully available. As needed, all aspects of the patient interview, examination, medical decision making process, and medical care plan development were reviewed and approved by the preceptor. The preceptor is aware and concurs with the plan as stated in the body of this note and will attest to such by his/her cosignature. I, Víctor Briggs, was present in the room and assisted with the intubation. IVAN
[2016-07-25 10:40] LABS: ABG BASE EXCESS -3.5 (-2.0-2.0); ABG HCO3 19.5 MEQ/L (22.0-26.0); ABG PARTIAL PRESSURE CO2 28.5 mmHg (35.0-45.0); ABG PARTIAL PRESSURE O2 104.3 mmHg (75.0-100.0); ABG STANDARD HCO3 21.6 MEQ/L (22.0-26.0); ABG TOTAL CO2 20.3 MEQ/L (23.0-31.0); ABG pH (ARTERIAL) 7.452 UNITS (7.350-7.450)
[2016-07-25] MEDS: PROPOFOL 1,000 MG in APPROPRIATE DILUENT 1 EA IV SCH ×2 (14:09→19:33)
--- NOTE | 2016-07-25 14:39 | REP ---
Follow-up abdominal right upper quadrant ultrasound: Comparison is 07/24/2016. The patient is on a ventilator and medicated, therefore unable to evaluate for a positive Burger's sign. There is diffuse gallbladder wall thickening today measuring up to 9 mm (10 mm on the prior study). This is nonspecific and could represent acalculous cholecystitis or could be artifact from ascites. A small volume of ascites is again noted adjacent to the liver. There is no cholelithiasis or biliary sludge in the gallbladder. There is no pericholecystic fluid. The portal triads appear slightly echogenic. This is nonspecific but can be related to hepatocellular disease such as hepatitis. No focal hepatic masses are identified. Balloon There is no intrahepatic or extrahepatic biliary duct dilatation, the common duct measures 0.4 cm diameter. Impression: No significant interval change from 07/24/2016. If symptoms persist or worsen, consider MRI. Signed by Benjy Locke MD 07/25/2016 02:31 P
[2016-07-25] MEDS: KCL 20MEQ IN D5/0.45NS 1000ML 1,000 ML IV SCH (15:14)
[2016-07-25] MEDS: CHLORHEXIDINE GLUCONATE 0.12 % 15ML UDC (PERIDEX ORAL RINSE) MT SCH (21:42)
[2016-07-25] MEDS: ENOXAPARIN 40 MG/0.4 ML SYRINGE (J1650) SC SCH (21:42)
--- NOTE | 2016-07-25 23:32 | CR ---
DATE OF CONSULTATION: 07/25/2016 REASON FOR CONSULT: Percutaneous endoscopic gastrostomy (PEG) tube placement. HISTORY OF PRESENT ILLNESS: The patient is a 65-year-old male with a history of Down syndrome, lives at [facility] ([facility]), presented to the emergency room on 07/21/2016 with the complaint of altered mental status and difficulty breathing. He was diagnosed with pneumonia in the emergency room (ER). He ended up being intubated in the intensive care unit (ICU). He was extubated this morning. However, he did not last very long being extubated, and he had to be reintubated this morning. There is concerns now that he has aspiration pneumonia, and he is currently intubated and sedated on the vent. History was obtained from the chart, and I also spoke with Dr. Esteban, who is his primary. PAST MEDICAL HISTORY: Senile dementia, expressive language disorder, chronic obstructive pulmonary disease (COPD), Down syndrome, Raynaud's disease, seizures, profound mental retardation, degenerative disc disease. PAST SURGICAL HISTORY: Negative. SOCIAL HISTORY: Negative. FAMILY HISTORY: Noncontributory. ALLERGIES: PENICILLINS, ASPIRIN, ADHESIVES, ANTIHISTAMINES. HOME MEDICATIONS: Please see medical record (med rec). REVIEW OF SYSTEMS: Unable to obtain. PHYSICAL EXAMINATION: General: The patient is sedated on the vent. Vital Signs: Temperature 97.7, pulse 75, respirations 22, blood pressure 103/67, pulse oximetry 99% on the vent. HEENT: Pupils are equal, round and reactive to light and accommodation. Heart: S1, S2, regular rate and rhythm. Lungs: Clear to auscultation with decreased air movement bilaterally, ventilated. Abdomen: Soft, nontender, nondistended. There is a midline lower abdominal incision from an unknown surgery. No signs of surgical scars in the left upper quadrant. Extremities: No clubbing, cyanosis or edema. LABORATORY DATA: White count 19, hemoglobin 10.4, platelets 172, INR 1.02, potassium 3.5, creatinine 0.72, calcium 8.2, albumin 2.5. IMAGING STUDIES: Chest x-ray this morning shows extensive bilateral infiltrates. ASSESSMENT AND PLAN: The patient is a 65-year-old male with Down syndrome who has a history of pneumonia and possible new onset of aspiration pneumonia. Recommendation from primary service is to have a feeding tube placed. They do not feel that he is safe to have any oral fluids or food anymore. I have been unable to reach the family as of now to discuss the PEG tube with them; however, I will continue to try. I will tentatively put him on the schedule for Friday to have this PEG tube placed with further recommendations to follow.
[2016-07-26] VITALS (41 sets, daily range): BP systolic 83–134; BP diastolic 52–86; O2SAT 98–100
[2016-07-26] MEDS: HumaLOG INSULIN (NovoLOG) PER UNIT SC SCH ×4 (00:30→17:20)
[2016-07-26] MEDS: KCL 20MEQ IN D5/0.45NS 1000ML 1,000 ML IV SCH ×3 (00:31→19:30)
[2016-07-26] MEDS: LEVALBUTEROL 1.25 MG/0.5 ML CONCENTRATE NEB INH SCH ×6 (03:32→23:48)
[2016-07-26 05:29] LABS: MEAN CORPUSCULAR HEMOGLOBIN 34.2 pg (27.0-33.0); MEAN CORPUSCULAR HGB CONC 34.1 g/dl (32.0-36.5); MEAN CORPUSCULAR VOLUME 100.4 fl (80.0-96.0); RED CELL DISTRIBUTION WIDTH 13.7 % (11.5-14.5); WHITE BLOOD COUNT 8.1 K/mm3 (4.0-10.0)
[2016-07-26 05:39] LABS: ALBUMIN 2.2 GM/DL (3.2-5.2); ALBUMIN/GLOBULIN RATIO 0.67 (1.00-1.93); ALKALINE PHOSPHATASE 77 U/L (45-117); ALT/SGPT 50 U/L (12-78); AST/SGOT 22 U/L (15-37); BILIRUBIN,TOTAL 1.7 MG/DL (0.2-1.0); BLOOD UREA NITROGEN 14 MG/DL (7-18); CALCIUM LEVEL 7.5 MG/DL (8.8-10.2); CARBON DIOXIDE LEVEL 25 MEQ/L (21-32); CHLORIDE LEVEL 113 MEQ/L (98-107); CHOLESTEROL LEVEL 119 MG/DL (< 200); CREATININE FOR GFR 0.82 MG/DL (0.70-1.30); GLOMERULAR FILTRATION RATE > 60.0 (>49); GLUCOSE, FASTING 125 MG/DL (80-110); TOTAL PROTEIN 5.5 GM/DL (6.4-8.2); TRIGLYCERIDES LEVEL 72 MG/DL (<150)
[2016-07-26 05:50] LABS: ABG BASE EXCESS 4.4 (-2.0-2.0); ABG PARTIAL PRESSURE CO2 33.4 mmHg (35.0-45.0); ABG PARTIAL PRESSURE O2 147.3 mmHg (75.0-100.0); ABG STANDARD HCO3 28.4 MEQ/L (22.0-26.0); ABG pH (ARTERIAL) 7.525 UNITS (7.350-7.450)
[2016-07-26 05:52] LABS: ANION GAP 7 MEQ/L (8-16); SODIUM LEVEL 145 MEQ/L (136-145)
[2016-07-26 05:58] LABS: PHOSPHORUS LEVEL 0.6 MG/DL (2.5-4.9); POTASSIUM SERUM 2.8 MEQ/L (3.5-5.1)
[2016-07-26] MEDS: metroNIDAZOLE 500 MG in APPROPRIATE DILUENT 1 EA IV SCH ×3 (06:18→23:19)
[2016-07-26] MEDS: KCL 10MEQ IN 100ML SWI (KRUN) 10 MEQ in APPROPRIATE DILUENT 1 EA IV SCH ×8 (06:43→09:56)
[2016-07-26] MEDS ORDERED: KCL 20MEQ IN 100ML SWI (KRUN) 20 MEQ in APPROPRIATE DILUENT 1 EA IV SCH ×2 (07:00)
--- NOTE | 2016-07-26 07:34 | IPNPDOC ---
Subjective General Date Seen The patient was seen on 07/26/16. Subjective Chief Complaint/HPI The patient is a 65-year-old male admitted with a reason for visit of Community Acquired Pneumonia. Events since last encounter remains intubated. Pulmonary/track laborer service managing. Dr. Kelly consulted , planning on PEG tube if guardian is agreeable secondary to intubation and aspiration pneumonia. Objective Physical Examination General Exam: Positive: No Acute Distress, Other (sedated) Neck Exam: Positive: Supple, Negative: JVD Chest Exam: Positive: Clear to auscultation (LLL), Diminished (RLL) Heart Exam: Positive: Rate Normal, Regular Rhythm Abdomen Exam: Positive: Normal bowel sounds, Soft, Negative: Tenderness Extremity Exam: Negative: Cyanosis, Edema Assessment /Plan Problems Problems: (1) Community acquired pneumonia Status: Acute Problem Text: 07/26/2016: Clothing Cutter managing care. Hypokalemic today, replacement ordered by Clothing Cutter team. Waiting for guardian approval for PEG tube. Dr. Kelly managing. 07/25 - Aspiration Pneumonia. Pulmonary following. On Cefepime. Pt was re- intubated today as it is felt he re-aspirated. WBC up to 19 today. Hypoxic. Pt was made NPO again. May need a PEG. Pt's sister Lisa Yanez is reportedly the decision maker for this pt. #[phone] (cell), ( home). 07/24 - Aspiration pneumonia. Pulmonary following and pt was extubated yesterday. On Cefepime. 07/23 - Aspiration pneumonia. Was intubated yesterday. Pulmonary following. On Cefepime. 07/22 - baseline SaO2 98-100% on RA! 07/22/16 continues to require 10L HF O2 to maintain SaO2 high 90s 07/22/16 nasal PCR coronavirus Oc43 (3 [facility] patients inpx c same serotype) 07/22 - CXR from 07/21: "Increased interstitial markings in the bases bilaterally. Fibrosis versus edema. There is increased density in the right infrahilar region as well. Infiltrate versus mass lesion." Possible aspiration, therefore, D2 IV Cefepime. On Solumedrol. On Nebs. (2) Elevated LFTs Status: Acute Problem Specific Plan: Monitor Clinically, Repeat Labs Problem Text: 07/25 - LFTs trending down. U/S showed Gb wall thickening. C/W acalculous cholecystitis vs ascites. Metronidazole was added yesterday. WBC count up today to 19. Plan to recheck GB U/S today. May need to consider surgical consult. D/W attending. 07/24 - LFTs elevated. AST 107/ALT 115. Check Liver U/S. 07/24/16: U/S c/w cholecystitis (acalculous) vs ascites. Liver changes suggestive and increased WBC c/w cholecystitis. Will add Metronidazole. If any worsening consider percutaneous drainage. Hopefully with antibiotic addition and resumption of po intake, GB function will improve and surgical intervention can be avoided. (3) Seizure disorder Status: Chronic Problem Specific Plan: Monitor Clinically Problem Text: On Vimpat. (4) Intellectual disability Status: Chronic Problem Specific Plan: Monitor Clinically (5) Lung nodule Permanent Comment: RLL NC nodule-stable from 02/2012 to 02/2015 CT chest c contrast Last Edited By: Rafi Mullen MD on Jul 22, 2016 13:57 Status: Chronic Response to Treatment: Stable Plan/VTE VTE Prophylaxis Ordered?: Yes Plan/Urinary Catheter Reason for insertion/continuin: Critical Pt monitoring VS, I&O, 24H, Fishbone Vital Signs/I&O Vital Signs Date Time Temp Pulse Resp B/P Pulse Ox O2 Delivery O2 Flow Rate FiO2 07/26/16 07:00 75 22 93/57 98 Ventilator 50 07/26/16 04:00 96.7 07/25/16 08:00 6.0 I&O- Last 24 Hours up to 6 AM 07/26/16 06:00 Intake Total 2170.4 ml Output Total 2100 ml Balance 70.4 ml Laboratory Data 24H LABS Laboratory Tests 2 07/25/16 09:07: Bedside Glucose (Misc Panel) 60L 07/25/16 10:35: Arterial Blood pH 7.452H, Arterial Blood Partial Pressure CO2 28.5L, Arterial Blood Partial Pressure O2 104.3H, Arterial Blood Total CO2 20.3L, Arterial Blood HCO3 19.5L, Arterial Blood Base Excess -3.5L, Arterial Blood Oxygen Saturation 98.2, Blood Gas Bicarbonate Standard 21.6L 07/25/16 12:01: Bedside Glucose (Misc Panel) 71L 07/25/16 17:33: Bedside Glucose (Misc Panel) 110 07/26/16 00:26: Bedside Glucose (Misc Panel) 144H 07/26/16 05:01: Blood Urea Nitrogen 14, Creatinine 0.82, Sodium Level 145, Potassium Level 2.8*L , Chloride Level 113H, Carbon Dioxide Level 25, Calcium Level 7.5L, Phosphorus Level 0.6#L, Aspartate Amino Transf (AST/SGOT) 22, Alanine Aminotransferase (ALT /SGPT) 50, Lactate Dehydrogenase 207, Total Creatine Kinase 59, Alkaline Phosphatase 77, Total Bilirubin 1.7H, Triglycerides Level 72, Cholesterol Level 119, Total Protein 5.5L, Albumin 2.2L, Albumin/Globulin Ratio 0.67L, Anion Gap 7L, Arterial Blood pH 7.525H, Arterial Blood Partial Pressure CO2 33.4L, Arterial Blood Partial Pressure O2 147.3H, Arterial Blood Total CO2 28.0, Arterial Blood HCO3 27.0H, Arterial Blood Base Excess 4.4H, Arterial Blood Oxygen Saturation 99.1H, Blood Gas Bicarbonate Standard 28.4H, Glomerular Filtration Rate > 60.0 CBC/BMP Laboratory Tests 07/26/16 05:01 Calcium Level 7.5 L, Phosphorus Level 0.6 #L, Aspartate Amino Transf (AST/SGOT) 22, Alanine Aminotransferase (ALT/SGPT) 50, Lactate Dehydrogenase 207, Total Creatine Kinase 59, Alkaline Phosphatase 77, Total Bilirubin 1.7 H, Triglycerides Level 72, Cholesterol Level 119, Total Protein 5.5 L, Albumin 2.2 L, Red Blood Count 3.08 L, Mean Corpuscular Volume 100.4 H, Mean Corpuscular Hemoglobin 34.2 H, Mean Corpuscular Hemoglobin Concent 34.1, Red Cell Distribution Width 13.7 Microbiology Microbiology 07/21/16 Blood Culture - Preliminary, Resulted No Growth after 72 hours. All specime... 07/21/16 Blood Culture - Preliminary, Resulted No Growth after 72 hours. All specime... 07/22/16 Gram Stain - Final, Complete 07/22/16 Sputum Culture - Final, Complete Staphylococcus Aureus Yeast Like Organism 07/22/16 MRSA Screen - Final, Complete 07/22/16 Respiratory Virus Panel (PCR) (JABIER) - Final, Complete Coronavirus Oc43 07/21/16 Influenza Virus Type A Antigen - Final, Complete 07/21/16 Influenza Virus Type B Antigen - Final, Complete 07/21/16 Urine Culture - Final, Complete Escherichia Coli Attending Note Attending Note As discussed with Dr. Briggs yesterday, Family Med will sign off for now, until he is ready to leave ICU. Janelle Corona Jul 26, 2016 07:34 Jw Esteban MD Jul 26, 2016 13:03
[2016-07-26] MEDS: LACOSAMIDE 50 MG TAB (VIMPAT) PO SCH ×2 (08:03→20:39)
[2016-07-26] MEDS: PANTOPRAZOLE 40MG INJ (PROTONIX) (C9113) IV SCH (08:03)
[2016-07-26] MEDS: CHLORHEXIDINE GLUCONATE 0.12 % 15ML UDC (PERIDEX ORAL RINSE) MT SCH ×2 (08:03→20:39)
[2016-07-26] MEDS: PROPOFOL 1,000 MG in APPROPRIATE DILUENT 1 EA IV SCH ×2 (08:08→16:13)
--- NOTE | 2016-07-26 08:19 | REP ---
The portable chest, single AP view, the patient semi upright, 07:00 a.m.: Comparison is 07/25/2016. The endotracheal tube remains in satisfactory position with the tip at the level of the aortic arch, above the aftab. The nasogastric tube remains in satisfactory position, terminating in the abdominal left upper quadrant. The bilateral infiltrates have improved but have not resolved. Cardiac size is normal. There are chronic arthritic changes in the shoulders. Signed by Benjy Locke MD 07/26/2016 08:11 A
[2016-07-26 08:34] LABS: MAGNESIUM LEVEL 1.8 MG/DL (1.8-2.4)
[2016-07-26] MEDS ORDERED: MULTIVITAMINS/MINERALS THERAP 1 TAB PO SCH (09:00)
--- NOTE | 2016-07-26 09:37 | CCN ---
DATE: 07/26/2016 Critical care time was 50 minutes. This excludes all procedures. HISTORY OF PRESENT ILLNESS: Presented to patients bedside for tachypnea. The patient has is overbreathing the vent, has evidence of a respiratory alkalosis on arterial blood gas. He is on low tidal volume ventilation. He is sedated with propofol, with good urine output. No evidence of septic shock at this point in time. He is tolerating tube feeds at 30 mL an hour. I had to place the OG tube with the assistance of a laryngoscope yesterday due to persistent difficulties with placement of the OG tube. PHYSICAL EXAMINATION: Temperature is 96.7, blood pressure is 93/57, heart rate 75, oxygen saturation 98% on 0.50 FiO2. Current mechanical ventilation settings volume control tidal volume 360, respiratory rate of 22, PEEP 5, FIO2 of 0.5 with an oxygen saturation of 98%. GENERAL: The patient is sedated on mechanical ventilation, moves arms and legs appropriately. HEENT: Sclerae clear and anicteric. Mucous membranes are slightly more moist than yesterday. Tongue is midline. Endotracheal tube is in place. NECK: Supple. No tracheal deviation or mass. LYMPH: No cervical, supraclavicular, or axillary adenopathy. PULMONARY: Fairly clear breath sounds on the left, some bronchial breath sounds on the right suggesting some mucus in the airway. No dullness to percussion. No pleural rub. No accessory muscle use. ABDOMEN: Soft, nontender, nondistended. No hepatosplenomegaly. No masses or hernias. EXTREMITIES: No cyanosis, clubbing or edema. SKIN: Pale without rashes, jaundice or bruising. MUSCULOSKELETAL: Significant muscle wasting without joint effusion or evidence of fracture. NEUROLOGIC: No seizure activity or evidence of tremor. Laboratory evaluation shows sodium of 145, potassium 2.8, chloride 113, bicarb of 25, BUN of 14, creatinine of 0.82, glucose 125, white blood cell count of 8.1, hemoglobin of 10.5. Arterial blood gas shows a pH of 7.53, pCO2 of 33 and PaO2 of 147. Calcium is 7.5 with a phosphorus of 0.6. Chest x-ray shows persistent right middle lobe infiltrate, some improvement of the upper lung novak bilaterally. No significant pleural effusion on the left. There is blunting of the costophrenic angle on the right. Endotracheal tube is in appropriate position. The tip of the OG tube goes off his chest x-ray, however, is clearly in the GI tract. There is no evidence of pneumothorax. IMPRESSION: 1. Acute hypoxic respiratory failure with recurrent aspiration pneumonia. Due to the patient's tachypnea, I have altered his ventilatory settings, especially due to his respiratory alkalosis. He is not showing signs of sepsis. I believe he is at low risk for ARDS and therefore I am increasing his tidal volume and decreasing his respiratory rate in order to improve his overall ventilatory exchange. 2. Hypokalemia. Replaced IV and given potassium phosphate this morning. Will check his potassium phosphate and mag level this afternoon to ensure adequate replacement. I expect he will need additional replacement, however, I am increasing his tube feeds today and he does have IV fluids with potassium. 3. Hypophosphatemia. Again replace p.o. 4. Malnourishment. I will increase his tube feeds to 50 mL an hour and add a multivitamin. 5. Leukocytosis. White count is down to 8.1 today. 6. Anemia. Hemoglobin is 10.5. No indication for transfusion. 7. Aspiration pneumonia. I believe his cefepime can be stopped after tomorrow's dose. He has been given 7 days of antibiotic therapy. DISPOSITION: Due to his history of recurrent aspiration, the primary team has discussed with his healthcare proxy the need for PEG placement. Although this may not prevent aspiration, at this point in time the patient is unable to tolerate any p.o. feeds without significant life-threatening aspiration. Dr. Kelly has been consulted.
[2016-07-26] MEDS: CEFEPIME HCL 2 GM in D5W MINI-BAG PLUS 50 ML IV SCH ×2 (09:55→21:50)
[2016-07-26] MEDS: K-PHOS ORIGINAL (POT.ACID PHOSPHATE) 500MG TAB PO SCH ×2 (09:55→20:40)
[2016-07-26] MEDS: MULTIVITAMINS PO SCH (11:43)
--- NOTE | 2016-07-26 13:14 | ECGEPIP ---
Stationary ECG Study [facility] Test Date: 2016-07-26 Pat Name: MARY BORJA Department: Room: [place] [address] Gender: M Audio Visual Project Manager: ANGI : 1950 Requested By: MICHELLE OWENS Order Number: [id number] Reading MD: Shefali Mays Measurements Intervals [place] Rate: 82 P: 63 MO: 110 QRS: -41 QRSD: 89 T: 34 QT: 417 QTc: 487 Interpretive Statements SINUS RHYTHM WITH SHORT MO INTERVAL LAFB MO MAY BE SHORTER C/W 07/21/16 Electronically Signed On 07-26-2016 13:14:34 EST by Shefali Mays
[2016-07-26 15:08] LABS: PHOSPHORUS LEVEL 0.5 MG/DL (2.5-4.9); POTASSIUM SERUM 3.2 MEQ/L (3.5-5.1)
[2016-07-26] MEDS ORDERED: POTASSIUM CHLORIDE 10% LIQ 20 MEQ/15 ML UDC PO ONE ×2 (16:00→16:30)
[2016-07-26] MEDS ORDERED: K-PHOS ORIGINAL (POT.ACID PHOSPHATE) 500MG TAB PO ONE (16:00)
[2016-07-26] MEDS ORDERED: MAG SULF 1GM/100ML (MAG RUN) 1 GM in APPROPRIATE DILUENT 1 EA IV ONE (16:00)
[2016-07-26] MEDS ORDERED: KCL 10MEQ IN 100ML SWI (KRUN) 10 MEQ in APPROPRIATE DILUENT 1 EA IV ONE ×2 (17:00)
[2016-07-26] MEDS: MIDAZOLAM INJ 2 MG/2 ML VIAL (J2250) IV PRN ×2 (17:19→20:50)
[2016-07-26] MEDS: ENOXAPARIN 40 MG/0.4 ML SYRINGE (J1650) SC SCH (20:40)
[2016-07-27] VITALS (41 sets, daily range): BP systolic 72–140; BP diastolic 48–92; O2SAT 93–100
[2016-07-27] MEDS: MIDAZOLAM INJ 2 MG/2 ML VIAL (J2250) IV PRN ×2 (02:38→06:57)
[2016-07-27] MEDS: LEVALBUTEROL 1.25 MG/0.5 ML CONCENTRATE NEB INH SCH ×5 (03:26→20:19)
[2016-07-27 04:35] LABS: MEAN CORPUSCULAR HEMOGLOBIN 34.5 pg (27.0-33.0); MEAN CORPUSCULAR VOLUME 101.3 fl (80.0-96.0); RED CELL DISTRIBUTION WIDTH 13.5 % (11.5-14.5); WHITE BLOOD COUNT 6.3 K/mm3 (4.0-10.0)
[2016-07-27 04:51] LABS: ALBUMIN 2.1 GM/DL (3.2-5.2); ALBUMIN/GLOBULIN RATIO 0.68 (1.00-1.93); ALKALINE PHOSPHATASE 75 U/L (45-117); ALT/SGPT 40 U/L (12-78); ANION GAP 6 MEQ/L (8-16); AST/SGOT 21 U/L (15-37); BILIRUBIN,TOTAL 1.1 MG/DL (0.2-1.0); BLOOD UREA NITROGEN 9 MG/DL (7-18); CALCIUM LEVEL 7.5 MG/DL (8.8-10.2); CARBON DIOXIDE LEVEL 28 MEQ/L (21-32); CHLORIDE LEVEL 112 MEQ/L (98-107); CHOLESTEROL LEVEL 118 MG/DL (< 200); CREATININE FOR GFR 0.79 MG/DL (0.70-1.30); GLOMERULAR FILTRATION RATE > 60.0 (>49); GLUCOSE, FASTING 194 MG/DL (80-110); MAGNESIUM LEVEL 1.7 MG/DL (1.8-2.4); PHOSPHORUS LEVEL 0.5 MG/DL (2.5-4.9); POTASSIUM SERUM 3.4 MEQ/L (3.5-5.1); SODIUM LEVEL 146 MEQ/L (136-145); TOTAL PROTEIN 5.2 GM/DL (6.4-8.2); TRIGLYCERIDES LEVEL 93 MG/DL (<150)
[2016-07-27] MEDS: HumaLOG INSULIN (NovoLOG) PER UNIT SC SCH ×4 (05:49→17:57)
[2016-07-27 06:19] LABS: ABG BASE EXCESS 3.8 (-2.0-2.0); ABG HCO3 26.8 MEQ/L (22.0-26.0); ABG PARTIAL PRESSURE CO2 34.9 mmHg (35.0-45.0); ABG PARTIAL PRESSURE O2 183.4 mmHg (75.0-100.0); ABG STANDARD HCO3 27.9 MEQ/L (22.0-26.0); ABG TOTAL CO2 27.9 MEQ/L (23.0-31.0); ABG pH (ARTERIAL) 7.503 UNITS (7.350-7.450)
[2016-07-27] MEDS: metroNIDAZOLE 500 MG in APPROPRIATE DILUENT 1 EA IV SCH ×3 (06:22→23:04)
[2016-07-27] MEDS: KCL 20MEQ IN D5/0.45NS 1000ML 1,000 ML IV SCH ×2 (06:22→16:30)
--- NOTE | 2016-07-27 08:52 | REP ---
AP PORTABLE CHEST: 07/27/2016. Comparison: 07/26/2016, 07/25/2016. Clinical history: Bilateral infiltrates. Findings: Endotracheal and nasogastric tubes are unchanged. Tip of the endotracheal tube is 3 cm from the aftab. Pattern of bibasilar infiltrates right greater than left is again seen. The pattern unchanged but slightly more density to the infiltrates compared to yesterday because of the somewhat lower level of inflation today. There is certainly significant improvement compared to 2 days ago with the upper lung zones much more clear. No other change. Signed by Silver Ontiveros MD 07/27/2016 07:24 P
[2016-07-27] MEDS: PANTOPRAZOLE 40MG INJ (PROTONIX) (C9113) IV SCH (09:00)
[2016-07-27] MEDS: LACOSAMIDE 50 MG TAB (VIMPAT) PO SCH ×2 (09:08→21:12)
[2016-07-27] MEDS: MULTIVITAMINS PO SCH (09:08)
[2016-07-27] MEDS: CEFEPIME HCL 2 GM in D5W MINI-BAG PLUS 50 ML IV SCH (09:08)
[2016-07-27] MEDS: CHLORHEXIDINE GLUCONATE 0.12 % 15ML UDC (PERIDEX ORAL RINSE) MT SCH ×2 (09:08→21:13)
[2016-07-27] MEDS: K-PHOS ORIGINAL (POT.ACID PHOSPHATE) 500MG TAB PO SCH ×2 (09:08→21:12)
[2016-07-27] MEDS ORDERED: REFRIGERATOR IV KEYS XX PRN (09:45)
[2016-07-27] MEDS ORDERED: MIDAZOLAM HCL 100 MG in D5W 80 ML IV SCH (10:00)
[2016-07-27] MEDS: NEUTRA-PHOS 1.25 GM PACKET PO SCH (10:27)
--- NOTE | 2016-07-27 10:38 | CCN ---
DATE: 07/27/2016 Critical care time was 40 minutes; this excludes all procedures. HISTORY OF PRESENT ILLNESS: Mr. Kumari is a 65-year-old male who has recurrent aspiration pneumonitis/pneumonia. He remains on mechanical ventilation. He has had significant protein malnourishment, hypophosphatemia, hypokalemia from his hospital stay. I feel it is best that he remain intubated until his percutaneous endoscopic gastrostomy (PEG) tube on Friday and continue tube feeds until that time. He remains on mechanical ventilation. His blood pressure was soft this morning. However, I believe this is propofol induced; therefore will switch his sedation to Versed. PHYSICAL EXAMINATION: Temperature is 96.6, blood pressure is 111/62, now 87/54 with a MAP of 63 at bedside this morning. Heart rate is 76, respiratory rate is 16, oxygen saturation is 100% on 0.50 FiO2. General: The patient is sedated on mechanical ventilation. Moves extremities appropriately. HEENT: Sclerae clear and anicteric. Pupils equal and reactive to light. Mucous membranes are more moist than previous. Tongue is midline. Neck is supple. No tracheal deviation or mass. LABORATORY DATA: No cervical, supraclavicular or axillary adenopathy. Cardiac: Tachycardiac, S1, S2 without audible murmur, rub or gallop. No elevated jugular venous pressure (JVP). No peripheral edema. Pulmonary: Decreased breath sounds at the right base, otherwise clear to auscultation without rales, rhonchi or wheezes. No dullness to percussion. Abdomen is soft, nontender, nondistended with hypoactive bowel sounds. No discernible hepatosplenomegaly. Extremities: No cyanosis, clubbing or edema. Musculoskeletal: Significant muscle wasting. No evidence of fracture or joint effusion. Neurologic: No evidence of seizure activity, tremor. No unilateral weakness. Laboratory evaluation shows sodium 146, potassium 3.4, chloride 112, bicarbonate 28, BUN of 9, creatinine of 0.79, glucose is 194, white blood cell count is 6.3, hemoglobin is 11.1, hematocrit is 32.7, platelet count of 170. Arterial blood gas shows a pH of 7.50, pCO2 of 35 with a pAO2 of 183, AST is 21, ALT is 40, albumin is 2.1, magnesium is 1.7, phosphorus is 0.5, total bilirubin is down to 1.1. Chest x-ray shows persistent right middle lobe infiltrate with endotracheal tube in good position. IMPRESSION: 1. Respiratory failure requiring mechanical ventilation with recurrent aspiration. Plan is to continue mechanical ventilation and tube feeds to promote adequate nutrition prior to his PEG tube placement. 2. Hypokalemia, replace orally. 3. Hypophosphatemia, replace orally. 4. Mild hypotension, likely propofol induced. Will change to Versed and monitor for signs and symptoms of sepsis. 5. Deep vein thrombosis (DVT) prophylaxis with Lovenox, gastrointestinal (GI) prophylaxis with Protonix. Critical care time as mentioned above. This excludes all procedures. MTDD
[2016-07-27] MEDS: ENOXAPARIN 40 MG/0.4 ML SYRINGE (J1650) SC SCH (21:12)
[2016-07-28] VITALS (22 sets, daily range): BP systolic 77–130; BP diastolic 50–80; O2SAT 100
[2016-07-28] MEDS: LEVALBUTEROL 1.25 MG/0.5 ML CONCENTRATE NEB INH SCH ×7 (00:14→23:46)
[2016-07-28] MEDS: HumaLOG INSULIN (NovoLOG) PER UNIT SC SCH ×4 (00:23→17:30)
[2016-07-28] MEDS: KCL 20MEQ IN D5/0.45NS 1000ML 1,000 ML IV SCH ×3 (02:41→22:53)
[2016-07-28 04:32] LABS: MEAN CORPUSCULAR HEMOGLOBIN 33.8 pg (27.0-33.0); MEAN CORPUSCULAR VOLUME 99.5 fl (80.0-96.0); RED CELL DISTRIBUTION WIDTH 13.5 % (11.5-14.5); WHITE BLOOD COUNT 4.5 K/mm3 (4.0-10.0)
[2016-07-28 04:54] LABS: ANION GAP 4 MEQ/L (8-16); BLOOD UREA NITROGEN 9 MG/DL (7-18); CALCIUM LEVEL 7.5 MG/DL (8.8-10.2); CARBON DIOXIDE LEVEL 30 MEQ/L (21-32); CHLORIDE LEVEL 110 MEQ/L (98-107); CREATININE FOR GFR 0.62 MG/DL (0.70-1.30); GLOMERULAR FILTRATION RATE > 60.0 (>49); GLUCOSE, FASTING 129 MG/DL (80-110); POTASSIUM SERUM 3.5 MEQ/L (3.5-5.1); SODIUM LEVEL 144 MEQ/L (136-145)
[2016-07-28 05:36] LABS: ABG BASE EXCESS 3.5 (-2.0-2.0); ABG HCO3 26.7 MEQ/L (22.0-26.0); ABG PARTIAL PRESSURE CO2 35.7 mmHg (35.0-45.0); ABG PARTIAL PRESSURE O2 184.5 mmHg (75.0-100.0); ABG STANDARD HCO3 27.6 MEQ/L (22.0-26.0); ABG TOTAL CO2 27.8 MEQ/L (23.0-31.0); ABG pH (ARTERIAL) 7.492 UNITS (7.350-7.450)
[2016-07-28] MEDS: metroNIDAZOLE 500 MG in APPROPRIATE DILUENT 1 EA IV SCH (06:31)
[2016-07-28] MEDS: PANTOPRAZOLE 40MG INJ (PROTONIX) (C9113) IV SCH (09:23)
[2016-07-28] MEDS: CHLORHEXIDINE GLUCONATE 0.12 % 15ML UDC (PERIDEX ORAL RINSE) MT SCH ×2 (09:23→21:06)
[2016-07-28] MEDS: MULTIVITAMINS PO SCH (09:24)
[2016-07-28] MEDS: NEUTRA-PHOS 1.25 GM PACKET PO SCH (09:24)
[2016-07-28] MEDS: K-PHOS ORIGINAL (POT.ACID PHOSPHATE) 500MG TAB PO SCH ×2 (09:24→21:06)
[2016-07-28] MEDS: LACOSAMIDE 50 MG TAB (VIMPAT) PO SCH ×2 (09:24→21:06)
[2016-07-28] MEDS: MIDAZOLAM INJ 2 MG/2 ML VIAL (J2250) IV PRN ×7 (11:58→23:52)
--- NOTE | 2016-07-28 12:21 | REP ---
AP PORTABLE CHEST: 07/28/2016 at 04:56 AM. Clinical history: Respiratory failure. Comparison: 07/27/2016, 07/26/2016, 07/25/2016. Findings: Nasogastric and endotracheal tubes are unchanged. Lungs are well inflated. Slightly less dense consolidation in the right base with bibasilar patchy atelectasis and infiltrates and effusions present without other change. There is hyperinflation with COPD. No other interval change. Impression: 1. Slight improvement in the dense consolidation right base with the other bilateral patchy infiltrates and atelectasis and small effusions unchanged. 2. Lines and tubes unchanged. Signed by Silver Ontiveros MD 07/28/2016 07:13 P
[2016-07-28] MEDS: ENOXAPARIN 40 MG/0.4 ML SYRINGE (J1650) SC SCH (21:06)
[2016-07-29] VITALS (36 sets, daily range): BP systolic 80–143; BP diastolic 46–71; O2SAT 99–100
[2016-07-29] MEDS: HumaLOG INSULIN (NovoLOG) PER UNIT SC SCH ×5 (00:09→23:53)
[2016-07-29] MEDS: MIDAZOLAM INJ 2 MG/2 ML VIAL (J2250) IV PRN ×9 (01:07→23:53)
[2016-07-29] MEDS: LEVALBUTEROL 1.25 MG/0.5 ML CONCENTRATE NEB INH SCH ×6 (04:13→23:17)
[2016-07-29] MEDS: KCL 20MEQ IN D5/0.45NS 1000ML 1,000 ML IV SCH ×3 (04:45→23:54)
[2016-07-29 04:56] LABS: MEAN CORPUSCULAR HEMOGLOBIN 33.5 pg (27.0-33.0); MEAN CORPUSCULAR HGB CONC 33.1 g/dl (32.0-36.5); MEAN CORPUSCULAR VOLUME 101.1 fl (80.0-96.0); RED CELL DISTRIBUTION WIDTH 13.5 % (11.5-14.5)
[2016-07-29 05:24] LABS: ANION GAP 5 MEQ/L (8-16); BILIRUBIN,TOTAL 0.9 MG/DL (0.2-1.0); BLOOD UREA NITROGEN 8 MG/DL (7-18); CALCIUM LEVEL 7.4 MG/DL (8.8-10.2); CARBON DIOXIDE LEVEL 30 MEQ/L (21-32); CHLORIDE LEVEL 108 MEQ/L (98-107); CREATININE FOR GFR 0.61 MG/DL (0.70-1.30); GLOMERULAR FILTRATION RATE > 60.0 (>49); GLUCOSE, FASTING 115 MG/DL (80-110); MAGNESIUM LEVEL 1.6 MG/DL (1.8-2.4); PHOSPHORUS LEVEL 2.1 MG/DL (2.5-4.9); POTASSIUM SERUM 3.7 MEQ/L (3.5-5.1); SODIUM LEVEL 143 MEQ/L (136-145)
[2016-07-29 06:01] LABS: ABG BASE EXCESS 4.2 (-2.0-2.0); ABG HCO3 27.3 MEQ/L (22.0-26.0); ABG PARTIAL PRESSURE CO2 35.1 mmHg (35.0-45.0); ABG PARTIAL PRESSURE O2 94.4 mmHg (75.0-100.0); ABG STANDARD HCO3 28.3 MEQ/L (22.0-26.0); ABG TOTAL CO2 28.3 MEQ/L (23.0-31.0); ABG pH (ARTERIAL) 7.508 UNITS (7.350-7.450)
[2016-07-29] MEDS: CHLORHEXIDINE GLUCONATE 0.12 % 15ML UDC (PERIDEX ORAL RINSE) MT SCH ×2 (08:29→21:45)
[2016-07-29] MEDS: PANTOPRAZOLE 40MG INJ (PROTONIX) (C9113) IV SCH (08:29)
[2016-07-29] MEDS: LACOSAMIDE 50 MG TAB (VIMPAT) PO SCH ×2 (08:30→21:45)
[2016-07-29] MEDS: K-PHOS ORIGINAL (POT.ACID PHOSPHATE) 500MG TAB PO SCH ×2 (08:30→21:45)
[2016-07-29] MEDS: MULTIVITAMINS PO SCH (08:30)
[2016-07-29] MEDS: NEUTRA-PHOS 1.25 GM PACKET PO SCH ×2 (08:30→08:37)
[2016-07-29] MEDS ORDERED: MAG SULF 1GM/100ML (MAG RUN) 1 GM in APPROPRIATE DILUENT 1 EA IV ONE (09:15)
[2016-07-29] MEDS ORDERED: fentaNYL 100 MCG/2 ML INJECTION (J3010) As Ordered ONE (12:59)
[2016-07-29] MEDS ORDERED: ePHEDrine SULFATE 25 MG/5 ML(5MG/ML) SYRINGE As Ordered ONE (13:15)
[2016-07-29] MEDS ORDERED: ROCURONIUM BROMIDE 50 MG/5 ML VIAL As Ordered ONE (13:15)
[2016-07-29] MEDS ORDERED: LIDOCAINE 1% SDV INJ 30 ML VIAL XX ONE (13:22)
--- NOTE | 2016-07-29 17:39 | RO ---
DATE OF PROCEDURE: 07/29/2016 PREOPERATIVE DIAGNOSIS: Dysphagia. POSTOPERATIVE DIAGNOSIS: Dysphagia. OPERATIVE PROCEDURE: 1. Esophagogastroduodenoscopy. 2. Percutaneous endoscopic gastrostomy tube placement. SURGEON: Benjy Kelly DO PARADI TENDER: None. ANESTHESIA: IV sedation with 2 mL of 1% lidocaine local. COMPLICATIONS: None. INDICATIONS FOR PROCEDURE: The patient is a 65-year-old male with Down syndrome and recurrent aspiration pneumonia presents with pneumonia. He has been intubated and failed extubation once already due to aspiration. Therefore recommendation from his medical team is no more by mouth feeds and that he needs a feeding tube placed. Risks and benefits of the procedure were discussed in detail with the patient's sister who is the DPOA. Risks include but are not limited bleeding, infection, perforation, damage to surrounding structures and possible need for further surgery. She understood the risks and gave a phone consent. DESCRIPTION OF PROCEDURE: The patient brought back to operating room six. After sedation, the abdomen was prepped with chlorhexidine. Next, esophagogastroduodenoscopy (EGD) was done, scope was passed through the mouth, the esophagus and into the stomach. The scope light was easily visualized through the abdominal wall and confirmed with palpation. Once this was completed, 2 mL of lidocaine was injected into the skin over the site. The 2 cm needle was long enough to reach all the way inside of the gastric lumen. This area was infiltrated with lidocaine. Next, a 1.5 cm incision was made, using #11 blade scalpel. Once this was completed, a finder needle was passed into the stomach. The guidewire was then passed into the stomach and brought out with a snare through the scope. The scope was then pulled out through the mouth. The gastrostomy tube was then fed over top of the guidewire down the esophagus and out through the abdominal wall. The guidewire was then removed and the gastrostomy tube was gently pulled down the esophagus and into the stomach without any resistance. The gastroscope was then passed back inside the stomach to confirm proper positioning and that there was no injury upon placement. Once this was completed, the gastrostomy bumper was placed. The tube was cut to length. The ports were installed to the tube. The patient was then awakened from anesthesia and sent to post anesthesia care unit (PACU) in stable condition.
[2016-07-30] VITALS (25 sets, daily range): BP systolic 85–145; BP diastolic 52–70; O2SAT 99–100
[2016-07-30] MEDS: MIDAZOLAM INJ 2 MG/2 ML VIAL (J2250) IV PRN ×3 (02:44→06:25)
[2016-07-30] MEDS: LEVALBUTEROL 1.25 MG/0.5 ML CONCENTRATE NEB INH SCH ×6 (03:16→23:27)
[2016-07-30 04:34] LABS: BASO % 0.5 % (0.0-1.0); EOS # 0.1 K/mm3 (0.0-0.50); EOS % 1.3 % (0.0-3.0); LARGE UNSTAINED CELL # 0.1 K/mm3 (0.0-0.4); LARGE UNSTAINED CELL % 1.3 % (0.0-4.0); MEAN CORPUSCULAR HGB CONC 32.1 g/dl (32.0-36.5); MEAN CORPUSCULAR VOLUME 105.9 fl (80.0-96.0); MONO # 0.5 K/mm3 (0.0-0.8); MONO % 6.8 % (0.0-5.0); NEUTROPHILS # 5.2 K/mm3 (1.8-7.7); PLATELET COUNT, AUTOMATED 180 k/mm3 (150-450); RED CELL DISTRIBUTION WIDTH 13.8 % (11.5-14.5); WHITE BLOOD COUNT 6.8 K/mm3 (4.0-10.0)
[2016-07-30 05:01] LABS: ALBUMIN 2.1 GM/DL (3.2-5.2); ALKALINE PHOSPHATASE 56 U/L (45-117); ALT/SGPT 25 U/L (12-78); ANION GAP 8 MEQ/L (8-16); AST/SGOT 27 U/L (15-37); BILIRUBIN,TOTAL 0.9 MG/DL (0.2-1.0); BLOOD UREA NITROGEN 6 MG/DL (7-18); CALCIUM LEVEL 7.4 MG/DL (8.8-10.2); CARBON DIOXIDE LEVEL 24 MEQ/L (21-32); CHLORIDE LEVEL 108 MEQ/L (98-107); CHOLESTEROL LEVEL 118 MG/DL (< 200); CREATININE FOR GFR 0.61 MG/DL (0.70-1.30); GLOMERULAR FILTRATION RATE > 60.0 (>49); GLUCOSE, FASTING 101 MG/DL (80-110); PHOSPHORUS LEVEL 3.1 MG/DL (2.5-4.9); POTASSIUM SERUM 3.9 MEQ/L (3.5-5.1); SODIUM LEVEL 140 MEQ/L (136-145); TOTAL PROTEIN 5.6 GM/DL (6.4-8.2); TRIGLYCERIDES LEVEL 65 MG/DL (<150)
[2016-07-30] MEDS: HumaLOG INSULIN (NovoLOG) PER UNIT SC SCH ×4 (05:50→23:55)
[2016-07-30 06:07] LABS: ABG BASE EXCESS 5.3 (-2.0-2.0); ABG HCO3 27.6 MEQ/L (22.0-26.0); ABG PARTIAL PRESSURE CO2 32.5 mmHg (35.0-45.0); ABG PARTIAL PRESSURE O2 102.3 mmHg (75.0-100.0); ABG STANDARD HCO3 29.3 MEQ/L (22.0-26.0); ABG TOTAL CO2 28.6 MEQ/L (23.0-31.0); ABG pH (ARTERIAL) 7.547 UNITS (7.350-7.450)
[2016-07-30] MEDS: NEUTRA-PHOS 1.25 GM PACKET PO SCH (07:55)
[2016-07-30] MEDS: LACOSAMIDE 50 MG TAB (VIMPAT) PO SCH ×2 (07:56→20:06)
[2016-07-30] MEDS: MULTIVITAMINS PO SCH (07:56)
[2016-07-30] MEDS: CHLORHEXIDINE GLUCONATE 0.12 % 15ML UDC (PERIDEX ORAL RINSE) MT SCH (07:56)
[2016-07-30] MEDS: K-PHOS ORIGINAL (POT.ACID PHOSPHATE) 500MG TAB PO SCH (07:56)
[2016-07-30] MEDS: PANTOPRAZOLE 40MG INJ (PROTONIX) (C9113) IV SCH (07:56)
--- NOTE | 2016-07-30 08:29 | REP ---
Clinical: Respiratory failure. Comparison: 07/29/2016. Findings: Endotracheal tube is roughly 2 cm from the aftab. Mediastinum and cardiac silhouette are within normal limits and stable. Bilateral mid to lower lobe infiltrates (right greater than left) and possible small layering pleural reactions (left greater than right) are similar to prior examination. No pneumothorax. Skeletal structures demonstrate osteopenia and degenerative changes. Impression: Endotracheal tube approximately 2 cm from the aftab. Bilateral mid to lower lobe infiltrates and possible small pleural reactions similar to prior examination. Signed by Jaydon Jacinto MD 07/30/2016 08:20 A
[2016-07-30] MEDS: KCL 20MEQ IN D5/0.45NS 1000ML 1,000 ML IV SCH ×2 (09:46→20:06)
[2016-07-30] MEDS ORDERED: SLF 3 ML SYR IV PRN (15:45)
[2016-07-30] MEDS: SLF 3 ML SYR IV SCH (22:00)
[2016-07-31] VITALS (14 sets, daily range): BP systolic 80–109; BP diastolic 50–61
[2016-07-31] MEDS: LEVALBUTEROL 1.25 MG/0.5 ML CONCENTRATE NEB INH SCH ×4 (03:53→15:09)
[2016-07-31 05:10] LABS: BASO % 0.3 % (0.0-1.0); EOS # 0.1 K/mm3 (0.0-0.50); EOS % 1.1 % (0.0-3.0); LARGE UNSTAINED CELL # 0.1 K/mm3 (0.0-0.4); LARGE UNSTAINED CELL % 0.9 % (0.0-4.0); LYMPH # 1.1 K/mm3 (1.5-4.5); LYMPH % 13.5 % (24.0-44.0); MEAN CORPUSCULAR HEMOGLOBIN 33.8 pg (27.0-33.0); MEAN CORPUSCULAR HGB CONC 33.2 g/dl (32.0-36.5); MONO # 0.3 K/mm3 (0.0-0.8); MONO % 4.2 % (0.0-5.0); NEUTROPHILS # 6.2 K/mm3 (1.8-7.7); PLATELET COUNT, AUTOMATED 240 k/mm3 (150-450); WHITE BLOOD COUNT 7.8 K/mm3 (4.0-10.0)
[2016-07-31 05:28] LABS: ALBUMIN 2.1 GM/DL (3.2-5.2); ALBUMIN/GLOBULIN RATIO 0.64 (1.00-1.93); ALKALINE PHOSPHATASE 67 U/L (45-117); ALT/SGPT 24 U/L (12-78); ANION GAP 7 MEQ/L (8-16); AST/SGOT 22 U/L (15-37); BILIRUBIN,TOTAL 0.8 MG/DL (0.2-1.0); BLOOD UREA NITROGEN 7 MG/DL (7-18); CALCIUM LEVEL 7.9 MG/DL (8.8-10.2); CARBON DIOXIDE LEVEL 29 MEQ/L (21-32); CHLORIDE LEVEL 104 MEQ/L (98-107); CHOLESTEROL LEVEL 120 MG/DL (< 200); CREATININE FOR GFR 0.61 MG/DL (0.70-1.30); GLOMERULAR FILTRATION RATE > 60.0 (>49); GLUCOSE, FASTING 112 MG/DL (80-110); PHOSPHORUS LEVEL 3.5 MG/DL (2.5-4.9); POTASSIUM SERUM 3.7 MEQ/L (3.5-5.1); SODIUM LEVEL 140 MEQ/L (136-145); TOTAL PROTEIN 5.4 GM/DL (6.4-8.2); TRIGLYCERIDES LEVEL 52 MG/DL (<150)
[2016-07-31] MEDS: HumaLOG INSULIN (NovoLOG) PER UNIT SC SCH ×3 (06:00→18:32)
[2016-07-31] MEDS: SLF 3 ML SYR IV SCH ×3 (06:16→20:40)
[2016-07-31] MEDS: LACOSAMIDE 50 MG TAB (VIMPAT) PO SCH ×2 (08:28→20:39)
[2016-07-31] MEDS: MULTIVITAMINS PO SCH (08:28)
[2016-07-31] MEDS: PANTOPRAZOLE 40MG INJ (PROTONIX) (C9113) IV SCH (08:28)
[2016-07-31] MEDS: KCL 20MEQ IN D5/0.45NS 1000ML 1,000 ML IV SCH (10:30)
--- NOTE | 2016-07-31 15:31 | IPNPDOC ---
Subjective General Date Seen The patient was seen on 07/31/16. Subjective Chief Complaint/HPI The patient is a 65-year-old male admitted with a reason for visit of Community Acquired Pneumonia. Events since last encounter Patient is nonverbal and is unable to give ROS; per nurse, no issues overnight. General: Reports: ROS Unobtainable Objective Physical Examination General Exam: Positive: Alert, No Acute Distress Eye Exam: Positive: PERRLA ENT Exam: Positive: Atraumatic Neck Exam: Positive: Supple, Negative: JVD Chest Exam: Positive: Clear to auscultation, Normal air movement Heart Exam: Positive: Rate Normal, Regular Rhythm Abdomen Exam: Positive: Normal bowel sounds, Soft, Negative: Tenderness Extremity Exam: Negative: Cyanosis, Edema Assessment /Plan Problems Problems: (1) Community acquired pneumonia Status: Resolved Problem Text: 07/31/16: Manager Qa transferred care back to Family Medicine service. Patient was successfully extubated yesterday and is on 1 LPM of O2 via NC, which we will continue to wean. He received Cefepime X7 days (last dose 07/27/16). As lungs are clear, will make xopenex treatments PRN. Steroids were discontinued. Dr. Kelly placed a PEG tube on 07/29/16. He can be transferred to PCU today. 07/26/2016: Manager Qa managing care. Hypokalemic today, replacement ordered by Manager Qa team. Waiting for guardian approval for PEG tube. Dr. Kelly managing. 07/25 - Aspiration Pneumonia. Pulmonary following. On Cefepime. Pt was re- intubated today as it is felt he re-aspirated. WBC up to 19 today. Hypoxic. Pt was made NPO again. May need a PEG. Pt's sister Lisa Ynaez is reportedly the decision maker for this pt. #[phone] (cell), ( home). 2 - Aspiration pneumonia. Pulmonary following and pt was extubated yesterday. On Cefepime. 2/ - Aspiration pneumonia. Was intubated yesterday. Pulmonary following. On Cefepime. 07/22 - baseline SaO2 98-100% on RA! 07/22/16 continues to require 10L HF O2 to maintain SaO2 high 90s 07/22/16 nasal PCR coronavirus Oc43 (3 [facility] patients inpx c same serotype) 07/22 - CXR from 07/21: "Increased interstitial markings in the bases bilaterally. Fibrosis versus edema. There is increased density in the right infrahilar region as well. Infiltrate versus mass lesion." Possible aspiration, therefore, D2 IV Cefepime. On Solumedrol. On Nebs. (2) Hypotension Status: Acute Problem Text: Patient has been mildly hypotensive during his stay. This was previously thought to be due to sedation with midazolam, but he continues to be hypotensive today while off of sedation with SBP in 80s-90s. His nurse believes this may be his baseline. Will continue to monitor BP in PCU. (3) Elevated LFTs Status: Resolved Problem Specific Plan: Monitor Clinically, Repeat Labs Problem Text: 07/31: LFTs are normal today. He was treated for cholecystitis with metronidazole x 5 days and has no abdominal tenderness today. 07/25 - LFTs trending down. U/S showed Gb wall thickening. C/W acalculous cholecystitis vs ascites. Metronidazole was added yesterday. WBC count up today to 19. Plan to recheck GB U/S today. May need to consider surgical consult. D/W attending. 07/24 - LFTs elevated. AST 107/ALT 115. Check Liver U/S. 07/24/16: U/S c/w cholecystitis (acalculous) vs ascites. Liver changes suggestive and increased WBC c/w cholecystitis. Will add Metronidazole. If any worsening consider percutaneous drainage. Hopefully with antibiotic addition and resumption of po intake, GB function will improve and surgical intervention can be avoided. (4) Seizure disorder Status: Chronic Problem Specific Plan: Monitor Clinically Problem Text: On Vimpat. 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 Plan/VTE VTE Prophylaxis Ordered?: Yes Plan/Urinary Catheter Reason for insertion/continuin: Critical Pt monitoring VS, I&O, 24H, Fishbone Vital Signs/I&O Vital Signs Date Time Temp Pulse Resp B/P Pulse Ox O2 Delivery O2 Flow Rate FiO2 07/31/16 15:09 91 07/31/16 12:00 97.1 22 95/54 100 Nasal Cannula 1.0 07/30/16 12:00 30 I&O- Last 24 Hours up to 6 AM 07/31/16 06:00 Intake Total 3020 ml Output Total 3975 ml Balance -955 ml Laboratory Data 24H LABS Laboratory Tests 2 07/30/16 17:37: Bedside Glucose (Misc Panel) 114 07/30/16 23:45: Bedside Glucose (Misc Panel) 123H 07/31/16 04:43: Blood Urea Nitrogen 7, Creatinine 0.61L, Sodium Level 140, Potassium Level 3.7, Chloride Level 104, Carbon Dioxide Level 29, Calcium Level 7.9L, Phosphorus Level 3.5, Aspartate Amino Transf (AST/SGOT) 22, Alanine Aminotransferase (ALT/ SGPT) 24, Lactate Dehydrogenase 219, Total Creatine Kinase 88, Alkaline Phosphatase 67, Total Bilirubin 0.8, Triglycerides Level 52, Cholesterol Level 120, Total Protein 5.4L, Albumin 2.1L, Albumin/Globulin Ratio 0.64L, Anion Gap 7L, White Blood Count 7.8, Red Blood Count 3.18L, Hemoglobin 10.8L, Hematocrit 32.5L, Mean Corpuscular Volume 102.0H, Mean Corpuscular Hemoglobin 33.8H, Mean Corpuscular Hemoglobin Concent 33.2, Red Cell Distribution Width 14.0, Platelet Count 240, Neutrophils (%) (Auto) 80.0H, Lymphocytes (%) (Auto) 13.5L, Monocytes (%) (Auto) 4.2, Eosinophils (%) (Auto) 1.1, Basophils (%) (Auto) 0.3, Neutrophils # (Auto) 6.2, Lymphocytes # (Auto) 1.1L, Monocytes # (Auto) 0.3, Eosinophils # (Auto) 0.1, Basophils # (Auto) 0.0, Glomerular Filtration Rate > 60.0, Large Unclassified Cells # 0.1, Large Unclassified Cells % 0.9 07/31/16 05:57: Bedside Glucose (Misc Panel) 99 07/31/16 12:26: Bedside Glucose (Misc Panel) 106 CBC/BMP Laboratory Tests 07/31/16 04:43 Calcium Level 7.9 L, Phosphorus Level 3.5, Aspartate Amino Transf (AST/SGOT) 22 , Alanine Aminotransferase (ALT/SGPT) 24, Lactate Dehydrogenase 219, Total Creatine Kinase 88, Alkaline Phosphatase 67, Total Bilirubin 0.8, Triglycerides Level 52, Cholesterol Level 120, Total Protein 5.4 L, Albumin 2.1 L, Red Blood Count 3.18 L, Mean Corpuscular Volume 102.0 H, Mean Corpuscular Hemoglobin 33.8 H, Mean Corpuscular Hemoglobin Concent 33.2, Red Cell Distribution Width 14.0, Neutrophils (%) (Auto) 80.0 H, Lymphocytes (%) (Auto) 13.5 L, Monocytes (%) ( Auto) 4.2, Eosinophils (%) (Auto) 1.1, Basophils (%) (Auto) 0.3, Neutrophils # ( Auto) 6.2, Lymphocytes # (Auto) 1.1 L, Monocytes # (Auto) 0.3, Eosinophils # ( Auto) 0.1, Basophils # (Auto) 0.0 Microbiology Microbiology 07/21/16 Blood Culture - Final, Complete NO GROWTH AFTER 5 DAYS 07/21/16 Blood Culture - Final, Complete NO GROWTH AFTER 5 DAYS 07/22/16 Gram Stain - Final, Complete 07/22/16 Sputum Culture - Final, Complete Staphylococcus Aureus Yeast Like Organism 07/22/16 MRSA Screen - Final, Complete 07/22/16 Respiratory Virus Panel (PCR) (JABIER) - Final, Complete Coronavirus Oc43 07/21/16 Influenza Virus Type A Antigen - Final, Complete 07/21/16 Influenza Virus Type B Antigen - Final, Complete 07/21/16 Urine Culture - Final, Complete Escherichia Coli CRISTOBAL ANGUIANO MD Jul 31, 2016 15:30
[2016-08-01] VITALS: BP 98/54
[2016-08-01] MEDS: HumaLOG INSULIN (NovoLOG) PER UNIT SC SCH ×4 (01:09→18:12)
[2016-08-01] MEDS: KCL 20MEQ IN D5/0.45NS 1000ML 1,000 ML IV SCH ×3 (01:09→16:06)
[2016-08-01 04:00] VITALS: BP 88/52
[2016-08-01 05:42] LABS: BASO % 0.2 % (0.0-1.0); EOS % 0.6 % (0.0-3.0); LARGE UNSTAINED CELL # 0.1 K/mm3 (0.0-0.4); LARGE UNSTAINED CELL % 1.5 % (0.0-4.0); LYMPH # 1.1 K/mm3 (1.5-4.5); MEAN CORPUSCULAR HEMOGLOBIN 33.7 pg (27.0-33.0); MEAN CORPUSCULAR HGB CONC 33.4 g/dl (32.0-36.5); MONO # 0.4 K/mm3 (0.0-0.8); NEUTROPHILS # 5.5 K/mm3 (1.8-7.7); NEUTROPHILS % 77.7 % (36.0-66.0); PLATELET COUNT, AUTOMATED 263 k/mm3 (150-450); RED CELL DISTRIBUTION WIDTH 13.4 % (11.5-14.5)
[2016-08-01 06:01] LABS: ALBUMIN 2.2 GM/DL (3.2-5.2); ALBUMIN/GLOBULIN RATIO 0.58 (1.00-1.93); ALKALINE PHOSPHATASE 75 U/L (45-117); ALT/SGPT 25 U/L (12-78); ANION GAP 5 MEQ/L (8-16); AST/SGOT 21 U/L (15-37); BILIRUBIN,TOTAL 0.6 MG/DL (0.2-1.0); BLOOD UREA NITROGEN 10 MG/DL (7-18); CALCIUM LEVEL 8.2 MG/DL (8.8-10.2); CARBON DIOXIDE LEVEL 32 MEQ/L (21-32); CHLORIDE LEVEL 104 MEQ/L (98-107); CHOLESTEROL LEVEL 128 MG/DL (< 200); GLOMERULAR FILTRATION RATE > 60.0 (>49); GLUCOSE, FASTING 99 MG/DL (80-110); PHOSPHORUS LEVEL 3.2 MG/DL (2.5-4.9); SODIUM LEVEL 141 MEQ/L (136-145); TRIGLYCERIDES LEVEL 56 MG/DL (<150)
[2016-08-01] MEDS: SLF 3 ML SYR IV SCH ×3 (06:38→20:36)
[2016-08-01 08:00] VITALS: BP 133/75
--- NOTE | 2016-08-01 09:21 | IPNPDOC ---
Subjective Date Seen The patient was seen on 08/01/16. Subjective Chief Complaint/HPI The patient is a 65-year-old male admitted with a reason for visit of Community Acquired Pneumonia. Events since last encounter He's non-verbal at baseline. Overnight events reviewed with nursing-- unremarkable. General: Reports: ROS Unobtainable Objective Physical Examination General Exam: Positive: Alert, No Acute Distress Eye Exam: Positive: PERRLA ENT Exam: Positive: Atraumatic Neck Exam: Positive: Supple Chest Exam: Positive: Clear to auscultation, Normal air movement Heart Exam: Positive: Rate Normal, Regular Rhythm Abdomen Exam: Positive: Normal bowel sounds, Soft Extremity Exam: Negative: Cyanosis, Edema Assessment /Plan Problems (1) Community acquired pneumonia Status: Resolved Problem Text: 07/31/16: Stitcher Set Up Operator Automatic transferred care back to Family Medicine service on 07/31, one day after extubation. He's still requiring 1L NC to maintain sats, however, I'll have nursing wean him from this later today. If he does well (baseline O2= 98-100% RA), we'll plan on a discharge tomorrow. He received Cefepime X7 days (last dose 07/27/16). As lungs are clear, will make xopenex treatments PRN. Steroids were discontinued. Dr. Kelly placed a PEG tube on 07/29/16. (2) PEG (percutaneous endoscopic gastrostomy) status Status: Acute Problem Text: tolerating TF s residual/vomiting Patient has new PEG tube placed and is currently receiving Jevity continuously- per Nutrition consult-decrease to 45 cc/H Jevity 1.5 and + 800 cc FW divided q6H (3) Hypotension Status: Acute Problem Text: Patient has been mildly hypotensive during his stay. This was previously thought to be due to sedation with midazolam, but he continues to be hypotensive today while off of sedation with SBP stable in the 90s. His nurse believes this may be his baseline. Will continue to monitor BP in PCU. (4) Elevated LFTs Status: Resolved Problem Specific Plan: Monitor Clinically, Repeat Labs Problem Text: Initial AST 107 ALT 115. CAMI s cholelithiasis or CBD stone. LFTs are normal today. He was treated for acalculous cholecystitis with metronidazole x 5 days and has no abdominal tenderness today. No further workup/ tx indicated. (5) Seizure disorder Status: Chronic Problem Specific Plan: Monitor Clinically Problem Text: On Vimpat. Plan/VTE VTE Prophylaxis Ordered?: Yes Plan/Urinary Catheter Reason for insertion/continuin: Critical Pt monitoring VS, I&O, 24H, Fishbone Vital Signs/I&O Vital Signs Date Time Temp Pulse Resp B/P Pulse Ox O2 Delivery O2 Flow Rate FiO2 08/01/16 08:00 96.5 80 18 133/75 97 Room Air 1.0 07/30/16 12:00 30 I&O- Last 24 Hours up to 6 AM 08/01/16 06:00 Intake Total 3340 ml Output Total 2245 ml Balance 1095 ml Laboratory Data 24H LABS Laboratory Tests 2 07/31/16 12:26: Bedside Glucose (Misc Panel) 106 07/31/16 18:25: Bedside Glucose (Misc Panel) 103 08/01/16 01:01: Bedside Glucose (Misc Panel) 108 08/01/16 05:15: Blood Urea Nitrogen 10, Creatinine 0.60L, Sodium Level 141, Potassium Level 4.0 , Chloride Level 104, Carbon Dioxide Level 32, Calcium Level 8.2L, Phosphorus Level 3.2, Aspartate Amino Transf (AST/SGOT) 21, Alanine Aminotransferase (ALT/ SGPT) 25, Lactate Dehydrogenase 225, Total Creatine Kinase 68, Alkaline Phosphatase 75, Total Bilirubin 0.6, Triglycerides Level 56, Cholesterol Level 128, Total Protein 6.0L, Albumin 2.2L, Albumin/Globulin Ratio 0.58L, Anion Gap 5L, White Blood Count 7.0, Red Blood Count 3.41L, Hemoglobin 11.5L, Hematocrit 34.5L, Mean Corpuscular Volume 101.0H, Mean Corpuscular Hemoglobin 33.7H, Mean Corpuscular Hemoglobin Concent 33.4, Red Cell Distribution Width 13.4, Platelet Count 263, Neutrophils (%) (Auto) 77.7H, Lymphocytes (%) (Auto) 15.0L, Monocytes (%) (Auto) 5.0, Eosinophils (%) (Auto) 0.6, Basophils (%) (Auto) 0.2, Neutrophils # (Auto) 5.5, Lymphocytes # (Auto) 1.1L, Monocytes # (Auto) 0.4, Eosinophils # (Auto) 0.0, Basophils # (Auto) 0.0, Glomerular Filtration Rate > 60.0, Large Unclassified Cells # 0.1, Large Unclassified Cells % 1.5 08/01/16 06:32: Bedside Glucose (Misc Panel) 104 CBC/BMP Laboratory Tests 08/01/16 05:15 Calcium Level 8.2 L, Phosphorus Level 3.2, Aspartate Amino Transf (AST/SGOT) 21 , Alanine Aminotransferase (ALT/SGPT) 25, Lactate Dehydrogenase 225, Total Creatine Kinase 68, Alkaline Phosphatase 75, Total Bilirubin 0.6, Triglycerides Level 56, Cholesterol Level 128, Total Protein 6.0 L, Albumin 2.2 L, Red Blood Count 3.41 L, Mean Corpuscular Volume 101.0 H, Mean Corpuscular Hemoglobin 33.7 H, Mean Corpuscular Hemoglobin Concent 33.4, Red Cell Distribution Width 13.4, Neutrophils (%) (Auto) 77.7 H, Lymphocytes (%) (Auto) 15.0 L, Monocytes (%) ( Auto) 5.0, Eosinophils (%) (Auto) 0.6, Basophils (%) (Auto) 0.2, Neutrophils # ( Auto) 5.5, Lymphocytes # (Auto) 1.1 L, Monocytes # (Auto) 0.4, Eosinophils # ( Auto) 0.0, Basophils # (Auto) 0.0 Microbiology Microbiology 07/22/16 Gram Stain - Final, Complete 07/22/16 Sputum Culture - Final, Complete Staphylococcus Aureus Yeast Like Organism 07/22/16 MRSA Screen - Final, Complete 07/22/16 Respiratory Virus Panel (PCR) ([facility]AB[facility]) - Final, Complete Coronavirus Oc43 MADHAVI PEREZ DO Aug 01, 2016 09:21 Rafi Mullen M.D. Aug 01, 2016 15:04 Staphylococcus Aureus Yeast Like Organism 07/22/16 MRSA Screen - Final, Complete 07/22/16 Respiratory Virus Panel (PCR) (JABIER) - Final, Complete Coronavirus Oc43 MADHAVI PEREZ DO Aug 01, 2016 09:21
[2016-08-01] MEDS: LACOSAMIDE 50 MG TAB (VIMPAT) PO SCH ×2 (09:34→20:36)
[2016-08-01] MEDS: PANTOPRAZOLE 40MG INJ (PROTONIX) (C9113) IV SCH (09:35)
[2016-08-01] MEDS: MULTIVITAMINS PO SCH (09:35)
[2016-08-01 12:00] VITALS: BP 106/64
[2016-08-01 18:00] VITALS: BP 147/70
[2016-08-01 22:00] VITALS: BP 100/60
[2016-08-02] VITALS (21 sets, daily range): BP systolic 81–122; BP diastolic 52–66; O2SAT 91
[2016-08-02] MEDS: HumaLOG INSULIN (NovoLOG) PER UNIT SC SCH ×4 (00:46→18:00)
[2016-08-02] MEDS: LEVALBUTEROL 1.25 MG/0.5 ML CONCENTRATE NEB INH PRN ×3 (05:43→14:10)
[2016-08-02] MEDS: SLF 3 ML SYR IV SCH ×3 (06:30→21:19)
[2016-08-02 06:39] LABS: BASO % 0.3 % (0.0-1.0); EOS % 0.3 % (0.0-3.0); LARGE UNSTAINED CELL # 0.2 K/mm3 (0.0-0.4); LARGE UNSTAINED CELL % 0.9 % (0.0-4.0); LYMPH % 5.6 % (24.0-44.0); MEAN CORPUSCULAR HEMOGLOBIN 33.9 pg (27.0-33.0); MEAN CORPUSCULAR HGB CONC 32.6 g/dl (32.0-36.5); MEAN CORPUSCULAR VOLUME 103.9 fl (80.0-96.0); MONO # 0.6 K/mm3 (0.0-0.8); MONO % 3.2 % (0.0-5.0); NEUTROPHILS # 15.4 K/mm3 (1.8-7.7); NEUTROPHILS % 89.7 % (36.0-66.0); PLATELET COUNT, AUTOMATED 319 k/mm3 (150-450); RED CELL DISTRIBUTION WIDTH 13.2 % (11.5-14.5); WHITE BLOOD COUNT 17.2 K/mm3 (4.0-10.0)
[2016-08-02 06:44] LABS: ALT/SGPT 28 U/L (12-78); ANION GAP 12 MEQ/L (8-16); AST/SGOT 30 U/L (15-37); BLOOD UREA NITROGEN 15 MG/DL (7-18); CALCIUM LEVEL 8.4 MG/DL (8.8-10.2); CARBON DIOXIDE LEVEL 27 MEQ/L (21-32); CHLORIDE LEVEL 101 MEQ/L (98-107); CREATININE FOR GFR 0.66 MG/DL (0.70-1.30); GLOMERULAR FILTRATION RATE > 60.0 (>49); GLUCOSE, FASTING 101 MG/DL (80-110); PHOSPHORUS LEVEL 3.9 MG/DL (2.5-4.9); POTASSIUM SERUM 4.5 MEQ/L (3.5-5.1); SODIUM LEVEL 140 MEQ/L (136-145)
[2016-08-02 06:45] LABS: ALBUMIN 2.6 GM/DL (3.2-5.2); ALBUMIN/GLOBULIN RATIO 0.68 (1.00-1.93); ALKALINE PHOSPHATASE 96 U/L (45-117); BILIRUBIN,TOTAL 0.6 MG/DL (0.2-1.0); CHOLESTEROL LEVEL 160 MG/DL (< 200); TOTAL PROTEIN 6.4 GM/DL (6.4-8.2); TRIGLYCERIDES LEVEL 84 MG/DL (<150)
--- NOTE | 2016-08-02 07:26 | IPNPDOC ---
Subjective Date Seen The patient was seen on 08/02/16. Subjective Chief Complaint/HPI The patient is a 65-year-old male admitted with a reason for visit of Community Acquired Pneumonia. Events since last encounter Per nursing and bedside sitter, he had increased cough/chest congestion overnight. CBC today c new leukocytosis (7-->17) and neutrophillia. RAT was called this morning when he became acutely hypoxic c signs of severe respiratory distress and O2 sat in 70s. Suctioning revealed think brown mucus. Resp status improved after a probable mucous plug was disloged. General: Reports: ROS Unobtainable Objective Physical Examination General Exam: Positive: Alert, No Acute Distress Eye Exam: Positive: PERRLA ENT Exam: Positive: Atraumatic Neck Exam: Positive: Supple Chest Exam: Positive: Other (supraclavicular,subcostal retractions), Rales, Rhonchi Heart Exam: Positive: Rate Normal, Regular Rhythm Abdomen Exam: Positive: Normal bowel sounds, Soft Extremity Exam: Negative: Cyanosis, Edema Assessment /Plan Problems (1) Aspiration pneumonia Status: Acute Problem Specific Plan: Consult Specialist Problem Text: 08/02/16 case d/w patient's legal guardian, sister Tressa Yanez ([phone])-she agrees with [id number] surrogate and MOLST forms completed- await court decision for official DNR order 08/01/16 Jevity 60 cc/H decreased to 45 cc/H and 200 cc FW QID added 08/02/16 sudden onset increased WOB, rhonchi/rhales, RVP, sputum cx, bld cx obtained. Chest PT ordered as he appears to be mucous plugging-suctioned for ~8 oz yellowish secretion He's been transferred back to the ICU. Primaxin initiated (he has documented PCN allergy of rash, no h/o anaphylaxis, and rate of cross-reactivity is about 1%). (2) Aspiration into airway Status: Chronic Response to Treatment: Uncontrolled Problem Text: He is s/p G-tube but will likely need G-J considering repeated aspiration. Aspiration precautions, elevate HOB >30 deg ordered. Tube feedings currently being held, IVF reinstituted. (3) PEG (percutaneous endoscopic gastrostomy) status Status: Acute Problem Text: 08/02: Tube feedings d/c for likely aspiration. CXR showed possible misplaced G-tube, pt was reportedly tolerating feeds overnight. Spoke c Dr. Kelly who will be evaluating him today. Ultimately, will require G-J conversion c IR-due to lack of anesthesia cannot be done by Dr. Acevedo until . Plan starting PPN when stable. Patient has new PEG tube placed and was receiving Jevity continuously-per Nutrition consult-decrease to 45 cc/H Jevity 1.5 and + 800 cc FW divided q6H on 08/01. (4) Elevated LFTs Status: Resolved Problem Specific Plan: Monitor Clinically, Repeat Labs Problem Text: Initial AST 107 ALT 115. CAMI s cholelithiasis or CBD stone. LFTs are normal today. He was treated for acalculous cholecystitis with metronidazole x 5 days and has no abdominal tenderness today. No further workup/ tx indicated. (5) Seizure disorder Status: Chronic Problem Specific Plan: Monitor Clinically Problem Text: on HD Vimpat 50 BID via [facility] to use per Dr. Acevedo Plan/VTE VTE Prophylaxis Ordered?: Yes Plan/Urinary Catheter Reason for insertion/continuin: Critical Pt monitoring VS, I&O, 24H, Fishbone Vital Signs/I&O Vital Signs Date Time Temp Pulse Resp B/P Pulse Ox O2 Delivery O2 Flow Rate FiO2 08/02/16 06:00 98.1 99 19 104/64 90 Room Air 08/01/16 09:36 1.0 07/30/16 12:00 30 I&O- Last 24 Hours up to 6 AM 08/02/16 06:00 Intake Total 1590 ml Output Total 2800 ml Balance -1210 ml Laboratory Data 24H LABS Laboratory Tests 2 08/01/16 11:28: Bedside Glucose (Misc Panel) 135H 08/01/16 17:49: Bedside Glucose (Misc Panel) 102 08/01/16 23:50: Bedside Glucose (Misc Panel) 108 08/02/16 06:08: Blood Urea Nitrogen 15, Creatinine 0.66L, Sodium Level 140, Potassium Level 4.5 , Chloride Level 101, Carbon Dioxide Level 27, Calcium Level 8.4L, Phosphorus Level 3.9#, Aspartate Amino Transf (AST/SGOT) 30, Alanine Aminotransferase (ALT/ SGPT) 28, Lactate Dehydrogenase 446H, Total Creatine Kinase 69, Alkaline Phosphatase 96, Total Bilirubin 0.6, Triglycerides Level 84, Cholesterol Level 160, Total Protein 6.4, Albumin 2.6L, Albumin/Globulin Ratio 0.68L, Anion Gap 12 , White Blood Count 17.2H, Red Blood Count 4.06L, Hemoglobin 13.8#L, Hematocrit 42.2, Mean Corpuscular Volume 103.9H, Mean Corpuscular Hemoglobin 33.9H, Mean Corpuscular Hemoglobin Concent 32.6, Red Cell Distribution Width 13.2, Platelet Count 319, Neutrophils (%) (Auto) 89.7H, Lymphocytes (%) (Auto) 5.6L, Monocytes (%) (Auto) 3.2, Eosinophils (%) (Auto) 0.3, Basophils (%) (Auto) 0.3, Neutrophils # (Auto) 15.4H, Lymphocytes # (Auto) 1.0L, Monocytes # (Auto) 0.6, Eosinophils # (Auto) 0.0, Basophils # (Auto) 0.0, Glomerular Filtration Rate > 60.0, Large Unclassified Cells # 0.2, Large Unclassified Cells % 0.9 08/02/16 06:29: Bedside Glucose (Misc Panel) 86 CBC/BMP Laboratory Tests 08/02/16 06:08 Calcium Level 8.4 L, Phosphorus Level 3.9 #, Aspartate Amino Transf (AST/SGOT) 30, Alanine Aminotransferase (ALT/SGPT) 28, Lactate Dehydrogenase 446 H, Total Creatine Kinase 69, Alkaline Phosphatase 96, Total Bilirubin 0.6, Triglycerides Level 84, Cholesterol Level 160, Total Protein 6.4, Albumin 2.6 L, Red Blood Count 4.06 L, Mean Corpuscular Volume 103.9 H, Mean Corpuscular Hemoglobin 33.9 H, Mean Corpuscular Hemoglobin Concent 32.6, Red Cell Distribution Width 13.2, Neutrophils (%) (Auto) 89.7 H, Lymphocytes (%) (Auto) 5.6 L, Monocytes (%) (Auto ) 3.2, Eosinophils (%) (Auto) 0.3, Basophils (%) (Auto) 0.3, Neutrophils # (Auto ) 15.4 H, Lymphocytes # (Auto) 1.0 L, Monocytes # (Auto) 0.6, Eosinophils # ( Auto) 0.0, Basophils # (Auto) 0.0 MADHAVI PEREZ DO Aug 02, 2016 07:26 Rafi Mullen M.D. Aug 02, 2016 11:38
[2016-08-02 08:43] LABS: ABG BASE EXCESS 7.4 (-2.0-2.0); ABG HCO3 31.7 MEQ/L (22.0-26.0); ABG PARTIAL PRESSURE CO2 43.2 mmHg (35.0-45.0); ABG STANDARD HCO3 31.3 MEQ/L (22.0-26.0); ABG pH (ARTERIAL) 7.483 UNITS (7.350-7.450)
[2016-08-02 08:56] LABS: BASO # 0.1 K/mm3 (0.0-0.2); BASO % 0.3 % (0.0-1.0); EOS # 0.1 K/mm3 (0.0-0.50); EOS % 0.7 % (0.0-3.0); LARGE UNSTAINED CELL # 0.2 K/mm3 (0.0-0.4); LARGE UNSTAINED CELL % 0.7 % (0.0-4.0); LYMPH # 0.7 K/mm3 (1.5-4.5); LYMPH % 3.5 % (24.0-44.0); MEAN CORPUSCULAR HEMOGLOBIN 33.2 pg (27.0-33.0); MEAN CORPUSCULAR HGB CONC 32.3 g/dl (32.0-36.5); MEAN CORPUSCULAR VOLUME 102.8 fl (80.0-96.0); MONO # 0.6 K/mm3 (0.0-0.8); MONO % 2.9 % (0.0-5.0); NEUTROPHILS # 19.4 K/mm3 (1.8-7.7); PLATELET COUNT, AUTOMATED 341 k/mm3 (150-450); RED CELL DISTRIBUTION WIDTH 13.1 % (11.5-14.5); WHITE BLOOD COUNT 21.1 K/mm3 (4.0-10.0)
[2016-08-02] MEDS: LACOSAMIDE 50 MG TAB (VIMPAT) PO SCH (09:00)
[2016-08-02] MEDS ORDERED: SODIUM CHLORIDE 0.9% 1000 ML IV ONE (09:00)
[2016-08-02] MEDS: MULTIVITAMINS PO SCH ×2 (09:00→12:46)
[2016-08-02 09:12] LABS: ALBUMIN 2.4 GM/DL (3.2-5.2); ALBUMIN/GLOBULIN RATIO 0.57 (1.00-1.93); ALKALINE PHOSPHATASE 84 U/L (45-117); ALT/SGPT 25 U/L (12-78); ANION GAP 7 MEQ/L (8-16); AST/SGOT 24 U/L (15-37); BILIRUBIN,TOTAL 0.6 MG/DL (0.2-1.0); BLOOD UREA NITROGEN 18 MG/DL (7-18); CALCIUM LEVEL 8.5 MG/DL (8.8-10.2); CARBON DIOXIDE LEVEL 30 MEQ/L (21-32); CHLORIDE LEVEL 100 MEQ/L (98-107); CREATININE FOR GFR 0.68 MG/DL (0.70-1.30); GLOMERULAR FILTRATION RATE > 60.0 (>49); GLUCOSE, FASTING 113 MG/DL (80-110); POTASSIUM SERUM 4.4 MEQ/L (3.5-5.1); SODIUM LEVEL 137 MEQ/L (136-145); TOTAL PROTEIN 6.6 GM/DL (6.4-8.2)
[2016-08-02] MEDS ORDERED: KCL 20MEQ IN 0.45NS 1000ML 1,000 ML IV SCH (09:15)
--- NOTE | 2016-08-02 09:53 | REP ---
Clinical: Shortness of breath. Comparison: 07/30/2016. Findings: Free air below the diaphragm is appreciated suggesting perforation. Lung novak demonstrate chronic interstitial changes with bibasilar atelectasis/infiltrates. No obvious effusion. No pneumothorax. Mediastinum and cardiac silhouette normal. Skeletal structures intact. Impression: Evidence for pneumoperitoneum which may reflect bowel perforation. Bibasilar atelectasis/infiltrates. Signed by Jaydon Jacinto MD 08/02/2016 09:45 A
[2016-08-02] MEDS: PANTOPRAZOLE 40MG INJ (PROTONIX) (C9113) IV SCH (09:56)
[2016-08-02] MEDS: IMIPENEM/CILASTATIN 500 MG in D5W MINI-BAG PLUS 100 ML IV SCH ×3 (10:53→21:26)
[2016-08-02] MEDS: LACOSAMIDE 50 MG TAB (VIMPAT) GT SCH ×2 (12:47→21:27)
[2016-08-02] MEDS: KCL 20MEQ IN D5/0.45NS 1000ML 1,000 ML IV SCH (16:17)
[2016-08-03] VITALS (13 sets, daily range): BP systolic 94–132; BP diastolic 52–74; O2SAT 98
[2016-08-03] MEDS: HumaLOG INSULIN (NovoLOG) PER UNIT SC SCH ×5 (00:37→23:33)
[2016-08-03] MEDS: KCL 20MEQ IN D5/0.45NS 1000ML 1,000 ML IV SCH ×2 (04:41→18:33)
[2016-08-03 04:42] LABS: BASO # 0.1 K/mm3 (0.0-0.2); BASO % 0.5 % (0.0-1.0); EOS # 0.2 K/mm3 (0.0-0.50); EOS % 1.1 % (0.0-3.0); LARGE UNSTAINED CELL # 0.2 K/mm3 (0.0-0.4); LARGE UNSTAINED CELL % 1.2 % (0.0-4.0); LYMPH # 1.3 K/mm3 (1.5-4.5); LYMPH % 7.8 % (24.0-44.0); MEAN CORPUSCULAR HEMOGLOBIN 33.8 pg (27.0-33.0); MEAN CORPUSCULAR HGB CONC 33.2 g/dl (32.0-36.5); MONO # 0.6 K/mm3 (0.0-0.8); MONO % 4.1 % (0.0-5.0); NEUTROPHILS # 12.6 K/mm3 (1.8-7.7); NEUTROPHILS % 85.4 % (36.0-66.0); PLATELET COUNT, AUTOMATED 343 k/mm3 (150-450); RED CELL DISTRIBUTION WIDTH 13.3 % (11.5-14.5); WHITE BLOOD COUNT 14.7 K/mm3 (4.0-10.0)
[2016-08-03] MEDS: IMIPENEM/CILASTATIN 500 MG in D5W MINI-BAG PLUS 100 ML IV SCH ×4 (04:42→21:35)
[2016-08-03 05:10] LABS: ALBUMIN 2.3 GM/DL (3.2-5.2); ALBUMIN/GLOBULIN RATIO 0.56 (1.00-1.93); ALKALINE PHOSPHATASE 75 U/L (45-117); ALT/SGPT 23 U/L (12-78); ANION GAP 8 MEQ/L (8-16); AST/SGOT 23 U/L (15-37); BLOOD UREA NITROGEN 17 MG/DL (7-18); CALCIUM LEVEL 7.9 MG/DL (8.8-10.2); CARBON DIOXIDE LEVEL 30 MEQ/L (21-32); CHLORIDE LEVEL 98 MEQ/L (98-107); CREATININE FOR GFR 0.66 MG/DL (0.70-1.30); GLOMERULAR FILTRATION RATE > 60.0 (>49); GLUCOSE, FASTING 65 MG/DL (80-110); SODIUM LEVEL 136 MEQ/L (136-145); TOTAL PROTEIN 6.4 GM/DL (6.4-8.2)
[2016-08-03] MEDS: SLF 3 ML SYR IV SCH ×3 (05:52→21:18)
--- NOTE | 2016-08-03 08:59 | IPNPDOC ---
Subjective Date Seen The patient was seen on 08/03/16. Subjective Chief Complaint/HPI The patient is a 65-year-old male admitted with a reason for visit of Community Acquired Pneumonia. Events since last encounter Seen and evaluated in ICU this morning. Respiratory status improving, down to 4L NC. No fevers, WBC trending down. General: Reports: ROS Unobtainable Objective Physical Examination General Exam: Positive: Alert, No Acute Distress Eye Exam: Positive: PERRLA ENT Exam: Positive: Atraumatic Neck Exam: Positive: Supple Chest Exam: Positive: Other (supraclavicular,subcostal retractions), Rales, Rhonchi Heart Exam: Positive: Rate Normal, Regular Rhythm Abdomen Exam: Positive: Normal bowel sounds, Soft Extremity Exam: Negative: Cyanosis, Edema Assessment /Plan Problems (1) Aspiration pneumonia Status: Acute Problem Specific Plan: Consult Specialist Problem Text: 08/03: Respiratory status greatly improved, sats low 90s on 4L. Likely aspiration pneumonitis rather than pneumonia. Will continue to wean and provide aggressive suctioning. He's on D#2 Primaxin. Sputum gram stain c G+ cocci in clusters, likely a contaminate (clinically improving, WBC trending down ). Will cont c current therapy for now for prophylaxis considering fragile respiratory status and increased risk for superinfection. Adjust to more narrow spectrum coverage for enteric cheli if continued improvement. 08/02/16 case d/w patient's legal guardian, sister Tressa Yanez ([phone])-she agrees with DNR/DNI-[id number] surrogate and MOLST forms completed-await court decision for official DNR order sudden onset increased WOB, rhonchi/rhales, RVP, sputum cx, bld cx obtained. Chest PT ordered as he appears to be mucous plugging-suctioned for ~8 oz yellowish secretion He's been transferred back to the ICU. Primaxin initiated (he has documented PCN allergy of rash, no h/o anaphylaxis, and rate of cross-reactivity is about 1%). 08/01/16 Jevity 60 cc/H decreased to 45 cc/H and 200 cc FW QID added (2) Aspiration into airway Status: Chronic Response to Treatment: Uncontrolled Problem Text: He is s/p G-tube but will likely need G-J considering repeated aspiration. Aspiration precautions, elevate HOB >30 deg ordered. Tube feedings currently being held, IVF reinstituted. Schedule for PEG on Friday (3) PEG (percutaneous endoscopic gastrostomy) status Status: Acute Problem Text: 08/03: Euvolemic on exam. He'll have a PICC placed on Friday for institution of TPN. Will cont IVF over the weekend rather than starting PPN to as to not risk compromising his access (difficult to access pt). e- stable, monitor daily. 08/02: Tube feedings d/c for likely aspiration. CXR showed possible misplaced G- tube, pt was reportedly tolerating feeds overnight. Spoke c Dr. Kelly who will be evaluating him today. Ultimately, will require G-J conversion c IR-due to lack of anesthesia cannot be done by Dr. Acevedo until 08/12/16. Plan starting PPN when stable. Patient has new PEG tube placed and was receiving Jevity continuously-per Nutrition consult-decrease to 45 cc/H Jevity 1.5 and + 800 cc FW divided q6H on 08/01. (4) Elevated LFTs Status: Resolved Problem Specific Plan: Monitor Clinically, Repeat Labs Problem Text: Initial AST 107 ALT 115. CAMI s cholelithiasis or CBD stone. LFTs are normal today. He was treated for acalculous cholecystitis with metronidazole x 5 days and has no abdominal tenderness today. No further workup/ tx indicated. (5) Seizure disorder Status: Chronic Problem Specific Plan: Monitor Clinically Problem Text: on HD Vimpat 50 BID via GT-OK to use per Dr. Acevedo. He's on Primaxin, which is known to decrease seizure threshold, so close monitoring and narrowing of antibiotic regimen based on cultures to avoid complications. Plan/VTE VTE Prophylaxis Ordered?: Yes Plan/Urinary Catheter Reason for insertion/continuin: Critical Pt monitoring Plan Respiratory: Wean Oxygen Diagnostics: Check Labs Advance Directives: DNR (/DNI) Attending Physician Note: I saw and examined this patient. The case was reviewed with the RPA and/or the PGY-3. VS, I&O, 24H, Fishbone Vital Signs/I&O Vital Signs Date Time Temp Pulse Resp B/P Pulse Ox O2 Delivery O2 Flow Rate FiO2 08/03/16 06:01 89 34 105/59 91 Nasal Cannula 4.0 08/03/16 04:00 98.0 07/30/16 12:00 30 I&O- Last 24 Hours up to 6 AM 08/03/16 06:00 Intake Total 1560 ml Balance 1560 ml Laboratory Data 24H LABS Laboratory Tests 2 08/02/16 08:40: Blood Urea Nitrogen 18, Creatinine 0.68L, Sodium Level 137, Potassium Level 4.4 , Chloride Level 100, Carbon Dioxide Level 30, Calcium Level 8.5L, Aspartate Amino Transf (AST/SGOT) 24, Alanine Aminotransferase (ALT/SGPT) 25, Alkaline Phosphatase 84, Total Bilirubin 0.6, Total Protein 6.6, Albumin 2.4L, Albumin/ Globulin Ratio 0.57L, Anion Gap 7L, White Blood Count 21.1H, Red Blood Count 3.59L, Hemoglobin 11.9L, Hematocrit 36.9L, Mean Corpuscular Volume 102.8H, Mean Corpuscular Hemoglobin 33.2H, Mean Corpuscular Hemoglobin Concent 32.3, Red Cell Distribution Width 13.1, Platelet Count 341, Neutrophils (%) (Auto) 92.0H, Lymphocytes (%) (Auto) 3.5L, Monocytes (%) (Auto) 2.9, Eosinophils (%) (Auto) 0.7, Basophils (%) (Auto) 0.3, Neutrophils # (Auto) 19.4H, Lymphocytes # (Auto) 0.7L, Monocytes # (Auto) 0.6, Eosinophils # (Auto) 0.1, Basophils # (Auto) 0.1, Glomerular Filtration Rate > 60.0, Large Unclassified Cells # 0.2, Large Unclassified Cells % 0.7 08/02/16 12:25: Bedside Glucose (Misc Panel) 98 08/02/16 17:32: Bedside Glucose (Misc Panel) 115 08/02/16 23:52: Bedside Glucose (Misc Panel) 108 08/03/16 04:21: Blood Urea Nitrogen 17, Creatinine 0.66L, Sodium Level 136, Potassium Level 4.0 , Chloride Level 98, Carbon Dioxide Level 30, Calcium Level 7.9L, Aspartate Amino Transf (AST/SGOT) 23, Alanine Aminotransferase (ALT/SGPT) 23, Alkaline Phosphatase 75, Total Bilirubin 1.0#, Total Protein 6.4, Albumin 2.3L, Albumin/ Globulin Ratio 0.56L, Anion Gap 8, Glomerular Filtration Rate > 60.0 08/03/16 04:22: White Blood Count 14.7H, Red Blood Count 3.43L, Hemoglobin 11.6L, Hematocrit 35.0L, Mean Corpuscular Volume 102.0H, Mean Corpuscular Hemoglobin 33.8H, Mean Corpuscular Hemoglobin Concent 33.2, Red Cell Distribution Width 13.3, Platelet Count 343, Neutrophils (%) (Auto) 85.4H, Lymphocytes (%) (Auto) 7.8L, Monocytes (%) (Auto) 4.1, Eosinophils (%) (Auto) 1.1, Basophils (%) (Auto) 0.5, Neutrophils # (Auto) 12.6H, Lymphocytes # (Auto) 1.3L, Monocytes # (Auto) 0.6, Eosinophils # (Auto) 0.2, Basophils # (Auto) 0.1, Large Unclassified Cells # 0.2 , Large Unclassified Cells % 1.2 08/03/16 05:49: Bedside Glucose (Misc Panel) 74L CBC/BMP Laboratory Tests 08/02/16 08:40 Calcium Level 8.5 L, Aspartate Amino Transf (AST/SGOT) 24, Alanine Aminotransferase (ALT/SGPT) 25, Alkaline Phosphatase 84, Total Bilirubin 0.6, Total Protein 6.6, Albumin 2.4 L, Red Blood Count 3.59 L, Mean Corpuscular Volume 102.8 H, Mean Corpuscular Hemoglobin 33.2 H, Mean Corpuscular Hemoglobin Concent 32.3, Red Cell Distribution Width 13.1, Neutrophils (%) (Auto) 92.0 H, Lymphocytes (%) (Auto) 3.5 L, Monocytes (%) (Auto) 2.9, Eosinophils (%) (Auto) 0.7, Basophils (%) (Auto) 0.3, Neutrophils # (Auto) 19.4 H, Lymphocytes # (Auto ) 0.7 L, Monocytes # (Auto) 0.6, Eosinophils # (Auto) 0.1, Basophils # (Auto) 0.1 08/03/16 04:21 Calcium Level 7.9 L, Aspartate Amino Transf (AST/SGOT) 23, Alanine Aminotransferase (ALT/SGPT) 23, Alkaline Phosphatase 75, Total Bilirubin 1.0 #, Total Protein 6.4, Albumin 2.3 L 08/03/16 04:22 Red Blood Count 3.43 L, Mean Corpuscular Volume 102.0 H, Mean Corpuscular Hemoglobin 33.8 H, Mean Corpuscular Hemoglobin Concent 33.2, Red Cell Distribution Width 13.3, Neutrophils (%) (Auto) 85.4 H, Lymphocytes (%) (Auto) 7.8 L, Monocytes (%) (Auto) 4.1, Eosinophils (%) (Auto) 1.1, Basophils (%) (Auto ) 0.5, Neutrophils # (Auto) 12.6 H, Lymphocytes # (Auto) 1.3 L, Monocytes # ( Auto) 0.6, Eosinophils # (Auto) 0.2, Basophils # (Auto) 0.1 Microbiology Microbiology 08/02/16 Blood Culture, Received Pending 08/02/16 Respiratory Virus Panel (PCR) (JABIER) - Final, Complete 08/02/16 Gram Stain - Final, Resulted 08/02/16 Sputum Culture, Resulted Pending MADHAVI PEREZ DO Aug 03, 2016 08:59 Phoenix Melendez M.D. Aug 04, 2016 17:58
[2016-08-03] MEDS: MULTIVITAMINS PO SCH (09:21)
[2016-08-03] MEDS: LACOSAMIDE 50 MG TAB (VIMPAT) GT SCH ×2 (09:21→21:35)
[2016-08-03] MEDS: PANTOPRAZOLE 40MG INJ (PROTONIX) (C9113) IV SCH (09:21)
[2016-08-04] VITALS (11 sets, daily range): BP systolic 114–132; BP diastolic 64–77
[2016-08-04 04:49] LABS: BASO % 0.4 % (0.0-1.0); EOS # 0.1 K/mm3 (0.0-0.50); EOS % 1.3 % (0.0-3.0); LARGE UNSTAINED CELL # 0.1 K/mm3 (0.0-0.4); LARGE UNSTAINED CELL % 1.2 % (0.0-4.0); LYMPH # 1.4 K/mm3 (1.5-4.5); MEAN CORPUSCULAR HEMOGLOBIN 33.9 pg (27.0-33.0); MEAN CORPUSCULAR HGB CONC 33.8 g/dl (32.0-36.5); MEAN CORPUSCULAR VOLUME 100.3 fl (80.0-96.0); MONO # 0.7 K/mm3 (0.0-0.8); MONO % 6.8 % (0.0-5.0); NEUTROPHILS # 7.8 K/mm3 (1.8-7.7); NEUTROPHILS % 77.3 % (36.0-66.0); PLATELET COUNT, AUTOMATED 373 k/mm3 (150-450); RED CELL DISTRIBUTION WIDTH 13.1 % (11.5-14.5); WHITE BLOOD COUNT 10.1 K/mm3 (4.0-10.0)
[2016-08-04] MEDS: IMIPENEM/CILASTATIN 500 MG in D5W MINI-BAG PLUS 100 ML IV SCH ×2 (04:53→10:20)
[2016-08-04] MEDS: KCL 20MEQ IN D5/0.45NS 1000ML 1,000 ML IV SCH (04:59)
[2016-08-04 05:12] LABS: ALBUMIN 2.2 GM/DL (3.2-5.2); ALBUMIN/GLOBULIN RATIO 0.56 (1.00-1.93); ALKALINE PHOSPHATASE 73 U/L (45-117); ALT/SGPT 20 U/L (12-78); ANION GAP 8 MEQ/L (8-16); AST/SGOT 22 U/L (15-37); BILIRUBIN,TOTAL 0.9 MG/DL (0.2-1.0); BLOOD UREA NITROGEN 12 MG/DL (7-18); CALCIUM LEVEL 7.6 MG/DL (8.8-10.2); CARBON DIOXIDE LEVEL 28 MEQ/L (21-32); CHLORIDE LEVEL 94 MEQ/L (98-107); CREATININE FOR GFR 0.59 MG/DL (0.70-1.30); GLOMERULAR FILTRATION RATE > 60.0 (>49); GLUCOSE, FASTING 122 MG/DL (80-110); POTASSIUM SERUM 3.8 MEQ/L (3.5-5.1); SODIUM LEVEL 130 MEQ/L (136-145); TOTAL PROTEIN 6.1 GM/DL (6.4-8.2)
[2016-08-04] MEDS: SLF 3 ML SYR IV SCH ×3 (06:00→21:20)
[2016-08-04] MEDS: HumaLOG INSULIN (NovoLOG) PER UNIT SC SCH ×4 (06:00→23:38)
[2016-08-04] MEDS: MULTIVITAMINS PO SCH (08:38)
[2016-08-04] MEDS: PANTOPRAZOLE 40MG INJ (PROTONIX) (C9113) IV SCH (08:38)
[2016-08-04] MEDS: LACOSAMIDE 50 MG TAB (VIMPAT) GT SCH ×2 (08:38→21:19)
--- NOTE | 2016-08-04 09:18 | IPNPDOC ---
Subjective Date Seen The patient was seen on 08/04/16. Subjective Chief Complaint/HPI The patient is a 65-year-old male admitted with a reason for visit of Community Acquired Pneumonia. Events since last encounter IV for hydration until PICC line insertion Friday with anticipation of TPN. Will need to have PEG clamped for 10 days prior to advancing into J tube with IR. General: Reports: ROS Unobtainable Objective Physical Examination General Exam: Positive: Alert, No Acute Distress Eye Exam: Positive: PERRLA ENT Exam: Positive: Atraumatic Neck Exam: Positive: Supple Chest Exam: Positive: Other (supraclavicular,subcostal retractions), Rales, Rhonchi Heart Exam: Positive: Rate Normal, Regular Rhythm Abdomen Exam: Positive: Normal bowel sounds, Soft Extremity Exam: Negative: Cyanosis, Edema Skin Exam: Positive: Nl turgor and temperature Assessment /Plan Problems (1) Aspiration pneumonia Status: Acute Problem Specific Plan: Consult Specialist Problem Text: 08/04/2016: Continues to improve. On RA. prn suction provides significant relief. D #3 Primaxin. WBC trending down. Now 10. Sputum CX + for MSSA. See sensitivities. 08/03: Respiratory status greatly improved, sats low 90s on 4L. Likely aspiration pneumonitis rather than pneumonia. Will continue to wean and provide aggressive suctioning. He's on D#2 Primaxin. Sputum gram stain c G+ cocci in clusters, likely a contaminate (clinically improving, WBC trending down). Will cont c current therapy for now for prophylaxis considering fragile respiratory status and increased risk for superinfection. Adjust to more narrow spectrum coverage for enteric hceli if continued improvement. 08/02/16 case d/w patient's legal guardian, sister Tressa Yanez ([phone])-she agrees with DNR/DNI-[id number] surrogate and MOLST forms completed-await court decision for official DNR order sudden onset increased WOB, rhonchi/rhales, RVP, sputum cx, bld cx obtained. Chest PT ordered as he appears to be mucous plugging-suctioned for ~8 oz yellowish secretion He's been transferred back to the ICU. Primaxin initiated (he has documented PCN allergy of rash, no h/o anaphylaxis, and rate of cross-reactivity is about 1%). 08/01/16 Jevity 60 cc/H decreased to 45 cc/H and 200 cc FW QID added (2) Aspiration into airway Status: Chronic Response to Treatment: Uncontrolled Problem Text: He is s/p G-tube but will likely need G-J considering repeated aspiration. Aspiration precautions, elevate HOB >30 deg ordered. Tube feedings currently being held, IVF reinstituted. Schedule for PICC on Friday08/05/2016. Will need TPN. (3) PEG (percutaneous endoscopic gastrostomy) status Status: Acute Problem Text: 08/03: Euvolemic on exam. He'll have a PICC placed on Friday for institution of TPN. Will cont IVF over the weekend rather than starting PPN to as to not risk compromising his access (difficult to access pt). e- stable, monitor daily. 08/02: Tube feedings d/c for likely aspiration. CXR showed possible misplaced G- tube, pt was reportedly tolerating feeds overnight. Spoke c Dr. Kelly who will be evaluating him today. Ultimately, will require G-J conversion c IR-due to lack of anesthesia cannot be done by Dr. Acevedo until 08/12/16. Plan starting PPN when stable. Patient has new PEG tube placed and was receiving Jevity continuously-per Nutrition consult-decrease to 45 cc/H Jevity 1.5 and + 800 cc FW divided q6H on 08/01. (4) Seizure disorder Status: Chronic Problem Specific Plan: Monitor Clinically Problem Text: on HD Vimpat 50 BID via GT-OK to use per Dr. Acevedo. He's on Primaxin, which is known to decrease seizure threshold, so close monitoring and narrowing of antibiotic regimen based on cultures to avoid complications. (5) Elevated LFTs Status: Resolved Problem Specific Plan: Monitor Clinically, Repeat Labs Problem Text: Initial AST 107 ALT 115. CAMI s cholelithiasis or CBD stone. LFTs are normal today. He was treated for acalculous cholecystitis with metronidazole x 5 days and has no abdominal tenderness today. No further workup/ tx indicated. Plan/VTE VTE Prophylaxis Ordered?: Yes Plan/Urinary Catheter Reason for insertion/continuin: Critical Pt monitoring Plan Respiratory: Wean Oxygen Diagnostics: Check Labs Advance Directives: DNR (/DNI) Attending Physician Note: I saw and examined this patient. The case was reviewed with the RPA. Discussed with Information Technology Security Manager and FIRE SAFETY DIRECTOR as well. Will be going to floor. Signed as second physician for his MOLST indicating lack of capacity. I'm told he's having an administrative review of his advanced directives this week. VS, I&O, 24H, Fishbone Vital Signs/I&O Vital Signs Date Time Temp Pulse Resp B/P Pulse Ox O2 Delivery O2 Flow Rate FiO2 08/04/16 06:01 79 32 114/72 92 Room Air 08/04/16 04:00 98.8 08/03/16 18:00 4.0 07/30/16 12:00 30 I&O- Last 24 Hours up to 6 AM 08/04/16 06:00 Intake Total 1800 ml Balance 1800 ml Laboratory Data 24H LABS Laboratory Tests 2 08/03/16 12:21: Bedside Glucose (Misc Panel) 109 08/03/16 18:30: Bedside Glucose (Misc Panel) 94 08/03/16 23:30: Bedside Glucose (Misc Panel) 113 08/04/16 04:19: Blood Urea Nitrogen 12, Creatinine 0.59L, Sodium Level 130L, Potassium Level 3.8 , Chloride Level 94L, Carbon Dioxide Level 28, Calcium Level 7.6L, Aspartate Amino Transf (AST/SGOT) 22, Alanine Aminotransferase (ALT/SGPT) 20, Alkaline Phosphatase 73, Total Bilirubin 0.9, Total Protein 6.1L, Albumin 2.2L, Albumin/ Globulin Ratio 0.56L, Anion Gap 8, White Blood Count 10.1H, Red Blood Count 3.37L, Hemoglobin 11.4L, Hematocrit 33.8L, Mean Corpuscular Volume 100.3H, Mean Corpuscular Hemoglobin 33.9H, Mean Corpuscular Hemoglobin Concent 33.8, Red Cell Distribution Width 13.1, Platelet Count 373, Neutrophils (%) (Auto) 77.3H, Lymphocytes (%) (Auto) 13.0L, Monocytes (%) (Auto) 6.8H, Eosinophils (%) (Auto) 1.3, Basophils (%) (Auto) 0.4, Neutrophils # (Auto) 7.8H, Lymphocytes # (Auto) 1.4L, Monocytes # (Auto) 0.7, Eosinophils # (Auto) 0.1, Basophils # (Auto) 0.0, Glomerular Filtration Rate > 60.0, Large Unclassified Cells # 0.1, Large Unclassified Cells % 1.2 CBC/BMP Laboratory Tests 08/04/16 04:19 Calcium Level 7.6 L, Aspartate Amino Transf (AST/SGOT) 22, Alanine Aminotransferase (ALT/SGPT) 20, Alkaline Phosphatase 73, Total Bilirubin 0.9, Total Protein 6.1 L, Albumin 2.2 L, Red Blood Count 3.37 L, Mean Corpuscular Volume 100.3 H, Mean Corpuscular Hemoglobin 33.9 H, Mean Corpuscular Hemoglobin Concent 33.8, Red Cell Distribution Width 13.1, Neutrophils (%) (Auto) 77.3 H, Lymphocytes (%) (Auto) 13.0 L, Monocytes (%) (Auto) 6.8 H, Eosinophils (%) (Auto ) 1.3, Basophils (%) (Auto) 0.4, Neutrophils # (Auto) 7.8 H, Lymphocytes # (Auto ) 1.4 L, Monocytes # (Auto) 0.7, Eosinophils # (Auto) 0.1, Basophils # (Auto) 0.0 Microbiology Microbiology 08/02/16 Blood Culture - Preliminary, Resulted No Growth after 48 hours. All Specime... 08/02/16 Respiratory Virus Panel (PCR) (JABIER) - Final, Complete 08/02/16 Gram Stain - Final, Complete 08/02/16 Sputum Culture - Final, Complete Staphylococcus Aureus Janelle Corona Aug 04, 2016 09:18 Phoenix Melendez M.D. Aug 04, 2016 18:05
[2016-08-04] MEDS: KCL 20MEQ IN D5/NS 1000ML 1,000 ML IV SCH ×2 (11:51→21:20)
[2016-08-04] MEDS: CEFEPIME HCL 2 GM in D5W MINI-BAG PLUS 50 ML IV SCH (15:56)
[2016-08-05 02:00] VITALS: BP 132/67
[2016-08-05] MEDS: CEFEPIME HCL 2 GM in D5W MINI-BAG PLUS 50 ML IV SCH ×2 (04:29→16:20)
[2016-08-05] MEDS: KCL 20MEQ IN D5/NS 1000ML 1,000 ML IV SCH ×2 (05:15→16:20)
[2016-08-05 05:52] LABS: BASO % 0.4 % (0.0-1.0); EOS # 0.2 K/mm3 (0.0-0.50); EOS % 1.7 % (0.0-3.0); LARGE UNSTAINED CELL # 0.1 K/mm3 (0.0-0.4); LARGE UNSTAINED CELL % 1.2 % (0.0-4.0); LYMPH # 1.3 K/mm3 (1.5-4.5); LYMPH % 12.5 % (24.0-44.0); MEAN CORPUSCULAR HEMOGLOBIN 33.6 pg (27.0-33.0); MEAN CORPUSCULAR HGB CONC 33.8 g/dl (32.0-36.5); MEAN CORPUSCULAR VOLUME 99.4 fl (80.0-96.0); MONO # 0.6 K/mm3 (0.0-0.8); MONO % 6.2 % (0.0-5.0); NEUTROPHILS # 7.4 K/mm3 (1.8-7.7); PLATELET COUNT, AUTOMATED 391 k/mm3 (150-450); WHITE BLOOD COUNT 9.5 K/mm3 (4.0-10.0)
[2016-08-05 06:00] VITALS: BP 155/89
[2016-08-05] MEDS: SLF 3 ML SYR IV SCH ×3 (06:00→22:09)
[2016-08-05] MEDS: HumaLOG INSULIN (NovoLOG) PER UNIT SC SCH ×3 (06:38→17:52)
[2016-08-05 06:39] LABS: ALBUMIN 2.2 GM/DL (3.2-5.2); ALBUMIN/GLOBULIN RATIO 0.55 (1.00-1.93); ALKALINE PHOSPHATASE 76 U/L (45-117); ALT/SGPT 21 U/L (12-78); ANION GAP 8 MEQ/L (8-16); AST/SGOT 28 U/L (15-37); BLOOD UREA NITROGEN 7 MG/DL (7-18); CALCIUM LEVEL 7.8 MG/DL (8.8-10.2); CARBON DIOXIDE LEVEL 26 MEQ/L (21-32); CHLORIDE LEVEL 94 MEQ/L (98-107); CREATININE FOR GFR 0.52 MG/DL (0.70-1.30); GLOMERULAR FILTRATION RATE > 60.0 (>49); GLUCOSE, FASTING 115 MG/DL (80-110); POTASSIUM SERUM 3.9 MEQ/L (3.5-5.1); SODIUM LEVEL 128 MEQ/L (136-145); TOTAL PROTEIN 6.2 GM/DL (6.4-8.2)
[2016-08-05] MEDS: PANTOPRAZOLE 40MG INJ (PROTONIX) (C9113) IV SCH (09:16)
[2016-08-05] MEDS: LACOSAMIDE 50 MG TAB (VIMPAT) GT SCH ×2 (09:16→21:24)
[2016-08-05] MEDS: MULTIVITAMINS PO SCH (09:16)
--- NOTE | 2016-08-05 11:01 | IPNPDOC ---
Subjective Date Seen The patient was seen on 08/05/16. Subjective Chief Complaint/HPI The patient is a 65-year-old male admitted with a reason for visit of Community Acquired Pneumonia. Events since last encounter Pt nonverbal. General: Reports: ROS Unobtainable Objective Physical Examination General Exam: Positive: Alert, No Acute Distress Eye Exam: Positive: PERRLA ENT Exam: Positive: Atraumatic Neck Exam: Positive: Supple Chest Exam: Positive: Other (supraclavicular,subcostal retractions), Rales, Rhonchi Heart Exam: Positive: Rate Normal, Regular Rhythm Abdomen Exam: Positive: Normal bowel sounds, Soft Extremity Exam: Negative: Cyanosis, Edema Skin Exam: Positive: Nl turgor and temperature Assessment /Plan Problems (1) Aspiration pneumonia Status: Acute Problem Specific Plan: Consult Specialist Problem Text: 08/05/2016: On RA. prn suction provides significant relief. WBC trending down to 9.5 today. Sputum CX + for MSSA. On Cefepime D2. Primaxin was d/c'ed. IV for hydration until PICC line insertion Friday with anticipation of TPN. Will need to have PEG clamped for 10 days prior to advancing into J tube with IR. Arndt?W attending. 08/04/2016: Continues to improve. On RA. prn suction provides significant relief. D #3 Primaxin. WBC trending down. Now 10. Sputum CX + for MSSA. See sensitivities. 08/03: Respiratory status greatly improved, sats low 90s on 4L. Likely aspiration pneumonitis rather than pneumonia. Will continue to wean and provide aggressive suctioning. He's on D#2 Primaxin. Sputum gram stain c G+ cocci in clusters, likely a contaminate (clinically improving, WBC trending down). Will cont c current therapy for now for prophylaxis considering fragile respiratory status and increased risk for superinfection. Adjust to more narrow spectrum coverage for enteric cheli if continued improvement. 08/02/16 case d/w patient's legal guardian, sister Tressa Yanez ([phone])-she agrees with DNR/DNI-1750 surrogate and MOLST forms completed-await court decision for official DNR order sudden onset increased WOB, rhonchi/rhales, RVP, sputum cx, bld cx obtained. Chest PT ordered as he appears to be mucous plugging-suctioned for ~8 oz yellowish secretion He's been transferred back to the ICU. Primaxin initiated (he has documented PCN allergy of rash, no h/o anaphylaxis, and rate of cross-reactivity is about 1%). 08/01/16 Jevity 60 cc/H decreased to 45 cc/H and 200 cc FW QID added (2) Aspiration into airway Status: Chronic Response to Treatment: Uncontrolled Problem Text: He is s/p G-tube but will likely need G-J considering repeated aspiration. Aspiration precautions, elevate HOB >30 deg ordered. Tube feedings currently being held, IVF reinstituted. Schedule for PICC on Friday08/05/2016. Will need TPN. (3) PEG (percutaneous endoscopic gastrostomy) status Status: Acute Problem Text: 08/05 - IV for hydration until PICC line insertion Friday with anticipation of TPN. Will need to have PEG clamped for 10 days prior to advancing into J tube with IR. 08/03: Euvolemic on exam. He'll have a PICC placed on Friday for institution of TPN. Will cont IVF over the weekend rather than starting PPN to as to not risk compromising his access (difficult to access pt). e- stable, monitor daily. 08/02: Tube feedings d/c for likely aspiration. CXR showed possible misplaced G- tube, pt was reportedly tolerating feeds overnight. Spoke c Dr. Kelly who will be evaluating him today. Ultimately, will require G-J conversion c IR-due to lack of anesthesia cannot be done by Dr. Acevedo until 08/12/16. Plan starting PPN when stable. Patient has new PEG tube placed and was receiving Jevity continuously-per Nutrition consult-decrease to 45 cc/H Jevity 1.5 and + 800 cc FW divided q6H on 08/01. (4) Seizure disorder Status: Chronic Problem Specific Plan: Monitor Clinically Problem Text: on HD Vimpat 50 BID via GT-OK to use per Dr. Acevedo. He's on Primaxin, which is known to decrease seizure threshold, so close monitoring and narrowing of antibiotic regimen based on cultures to avoid complications. (5) Elevated LFTs Status: Resolved Problem Specific Plan: Monitor Clinically, Repeat Labs Problem Text: Initial AST 107 ALT 115. CAMI s cholelithiasis or CBD stone. LFTs are normal today. He was treated for acalculous cholecystitis with metronidazole x 5 days and has no abdominal tenderness today. No further workup/ tx indicated. Plan/VTE VTE Prophylaxis Ordered?: No Plan/Urinary Catheter Reason for insertion/continuin: Critical Pt monitoring Plan Respiratory: Wean Oxygen Diagnostics: Check Labs Attending attestation: I saw and evaluated the patient, and I agree with the plan of care as discussed and documented by Vinicio Marie. Madison Salter MD VS, I&O, [facility]/I&O Vital Signs Date Time Temp Pulse Resp B/P Pulse Ox O2 Delivery O2 Flow Rate FiO2 08/05/16 09:00 Room Air 08/05/16 06:00 96.3 86 18 155/89 93 08/03/16 18:00 4.0 07/30/16 12:00 30 I&O- Last 24 Hours up to 6 AM 08/05/16 06:00 Intake Total 1340 ml Balance 1340 ml Laboratory Data 24H LABS Laboratory Tests 2 08/04/16 11:53: Bedside Glucose (Misc Panel) 117H 08/04/16 18:06: Bedside Glucose (Misc Panel) 102 08/04/16 23:35: Bedside Glucose (Misc Panel) 112 08/05/16 05:43: Blood Urea Nitrogen 7, Creatinine 0.52L, Sodium Level 128L, Potassium Level 3.9 , Chloride Level 94L, Carbon Dioxide Level 26, Calcium Level 7.8L, Aspartate Amino Transf (AST/SGOT) 28, Alanine Aminotransferase (ALT/SGPT) 21, Alkaline Phosphatase 76, Total Bilirubin 1.0, Total Protein 6.2L, Albumin 2.2L, Albumin/ Globulin Ratio 0.55L, Anion Gap 8, White Blood Count 9.5, Red Blood Count 3.57L , Hemoglobin 12.0L, Hematocrit 35.5L, Mean Corpuscular Volume 99.4H, Mean Corpuscular Hemoglobin 33.6H, Mean Corpuscular Hemoglobin Concent 33.8, Red Cell Distribution Width 13.0, Platelet Count 391, Neutrophils (%) (Auto) 78.0H, Lymphocytes (%) (Auto) 12.5L, Monocytes (%) (Auto) 6.2H, Eosinophils (%) (Auto) 1.7, Basophils (%) (Auto) 0.4, Neutrophils # (Auto) 7.4, Lymphocytes # (Auto) 1.3L, Monocytes # (Auto) 0.6, Eosinophils # (Auto) 0.2, Basophils # (Auto) 0.0, Glomerular Filtration Rate > 60.0, Large Unclassified Cells # 0.1, Large Unclassified Cells % 1.2 08/05/16 06:28: Bedside Glucose (Misc Panel) 116H CBC/BMP Laboratory Tests 08/05/16 05:43 Calcium Level 7.8 L, Aspartate Amino Transf (AST/SGOT) 28, Alanine Aminotransferase (ALT/SGPT) 21, Alkaline Phosphatase 76, Total Bilirubin 1.0, Total Protein 6.2 L, Albumin 2.2 L, Red Blood Count 3.57 L, Mean Corpuscular Volume 99.4 H, Mean Corpuscular Hemoglobin 33.6 H, Mean Corpuscular Hemoglobin Concent 33.8, Red Cell Distribution Width 13.0, Neutrophils (%) (Auto) 78.0 H, Lymphocytes (%) (Auto) 12.5 L, Monocytes (%) (Auto) 6.2 H, Eosinophils (%) (Auto ) 1.7, Basophils (%) (Auto) 0.4, Neutrophils # (Auto) 7.4, Lymphocytes # (Auto) 1.3 L, Monocytes # (Auto) 0.6, Eosinophils # (Auto) 0.2, Basophils # (Auto) 0.0 Microbiology Microbiology 08/02/16 Blood Culture - Preliminary, Resulted No Growth after 72 hours. All specime... 08/02/16 Respiratory Virus Panel (PCR) (JABIER) - Final, Complete 08/02/16 Gram Stain - Final, Complete 08/02/16 Sputum Culture - Final, Complete Staphylococcus Aureus Magdy Marie Aug 05, 2016 11:01 MADISON SALTER MD Aug 11, 2016 19:53
[2016-08-05 14:00] VITALS: BP 129/78
--- NOTE | 2016-08-05 14:02 | REP ---
PORTABLE CHEST, ONE VIEW: HISTORY: Respiratory failure. The examination is available for review 1:40 p.m. this date. COMPARISON: 07/28/2016. Bilateral lower lobe infiltrates are present unchanged compared to the previous study. Small pleural effusions are present unchanged compared to the previous study. The heart is normal in size. The pulmonary vasculature is normal in appearance. An ET tube and NG tube are present. The ET tube is present at the level of the aftab. IMPRESSION: 1. Bibasilar infiltrates unchanged compared to the previous study. 2. Small bilateral pleural effusions unchanged compared to the previous study. Signed by Chad Jean MD 08/05/2016 02:07 P
--- NOTE | 2016-08-05 17:37 | REP ---
Procedure: PICC LINE INSERTION WITH SITE-RITE: 08/05/2016. The procedure was performed under the direct supervision of Dr. Ontiveros. The risks and benefits of the procedure were explained and informed consent was obtained by the health care proxy. The right basilic vein was localized using ultrasound guidance. The skin was prepped and draped in a sterile fashion. 2% lidocaine was used as a local anesthetic. Using ultrasound guidance the basilic vein was cannulated and a 0.018 guidewire was inserted and advanced to the SVC using fluoroscopic guidance. The needle was removed and a 5.5 Togolese dilator and peel-away sheath was inserted over the guide wire. A 5.5 Togolese dual lumen catheter was cut to length of 41 cm. The dilator was removed and the catheter was inserted over the guide wire with the tip ending in the SVC. The peel-away sheath was removed and the catheter was flushed with heparinized saline as per Hospital protocol. The catheter was affixed to the skin and a sterile dressing was applied. The the patient tolerated the procedure well and there were no immediate complications. 0.2 minutes of fluoro time was utilized for this procedure. Reviewed by RIMA Pereyra 08/05/2016 04:27 PSigned by Silver Ontiveros MD 08/05/2016 05:28 P
[2016-08-05] MEDS: LEVALBUTEROL 1.25 MG/0.5 ML CONCENTRATE NEB INH PRN (21:06)
[2016-08-05 21:16] LABS: ABG BASE EXCESS 1.7 (-2.0-2.0); ABG PARTIAL PRESSURE CO2 35.1 mmHg (35.0-45.0); ABG PARTIAL PRESSURE O2 70.1 mmHg (75.0-100.0); ABG STANDARD HCO3 25.9 MEQ/L (22.0-26.0); ABG TOTAL CO2 26.1 MEQ/L (23.0-31.0); ABG pH (ARTERIAL) 7.471 UNITS (7.350-7.450)
--- NOTE | 2016-08-05 21:30 | REPUSA ---
Clinical history: difficulty breathing. Comparison: None. Findings: The right-sided PICC line catheter is within the superior vena cava. The mediastinum and ca rdiac silhouette are within normal limits. There is extensive pulmonary vascular congestion with diff use bilateral interstitial infiltrates. No pleural effusion or pneumothorax is seen. The osseous stru ctures and soft tissues are unremarkable. Impression: Moderately severe congestive heart failure.
[2016-08-05 22:00] VITALS: BP 137/78
[2016-08-05] MEDS ORDERED: FUROSEMIDE 20 MG/2 ML VIAL (J1940) As Ordered ONE (22:00)
[2016-08-05] MEDS ORDERED: FUROSEMIDE 20 MG/2 ML VIAL (J1940) IV ONE (22:00)
[2016-08-05] MEDS ORDERED: SODIUM CHLORIDE 0.9% INJ 10 ML SYR IV PRN (22:15)
--- NOTE | 2016-08-05 23:51 | IPNPDOC ---
Text Note Date of Service The patient was seen on 08/05/16. NOTE I was called by nursing earlier this evening due to patient's ongoing increased work of breathing. At the time of the initial phone call, the nurse stated that his WOB was unchanged from earlier this evening when the patient was evaluated by Dr. Salter, but she was concerned that he continued to appear SOB. His vital signs have remained stable and he is maintaining O2 sat >90% on RA; a repeat ABG obtained earlier this evening was relatively stable as compared to ABG done on 08/02/16. Due to his CXR showing moderately severe congestive heart failure, I stopped his IVF and gave lasix 20 mg IV. I was subsequently called by the nurse plating and point assembly supervisor, who evaluated the patient and recommended transfer to ICU due to increased WOB. I authorized this transfer and came in to evaluate the patient. At this time, he has [id number]-[id number] increased WOB with diffuse rhonchi and transmitted upper airway sounds. He has had about 700 ml urine output since lasix was given and a salazar catheter was placed. His nurse states that he appears more comfortable now than prior to giving lasix. Per nursing, he is a full code but his sister wishes for him to be a DNR and currently there is paperwork that will be signed and brought to court tomorrow to change his code status. Per the rounding physician today, he did not tolerate BiPap well and pulled this off in the recent past. At this point he appears stable; if his pulmonary status deteriorates tonight, I will ask critical care to see him, as they were following him earlier in this hospitalization. VS,Gaelbone, I+O VS, Fishbone, I+O Laboratory Tests 08/05/16 05:43 Calcium Level 7.8 L, Aspartate Amino Transf (AST/SGOT) 28, Alanine Aminotransferase (ALT/SGPT) 21, Alkaline Phosphatase 76, Total Bilirubin 1.0, Total Protein 6.2 L, Albumin 2.2 L, Red Blood Count 3.57 L, Mean Corpuscular Volume 99.4 H, Mean Corpuscular Hemoglobin 33.6 H, Mean Corpuscular Hemoglobin Concent 33.8, Red Cell Distribution Width 13.0, Neutrophils (%) (Auto) 78.0 H, Lymphocytes (%) (Auto) 12.5 L, Monocytes (%) (Auto) 6.2 H, Eosinophils (%) (Auto ) 1.7, Basophils (%) (Auto) 0.4, Neutrophils # (Auto) 7.4, Lymphocytes # (Auto) 1.3 L, Monocytes # (Auto) 0.6, Eosinophils # (Auto) 0.2, Basophils # (Auto) 0.0 Vital Signs Date Time Temp Pulse Resp B/P Pulse Ox O2 Delivery O2 Flow Rate FiO2 08/05/16 22:00 97.6 97 24 137/78 91 Room Air 08/03/16 18:00 4.0 07/30/16 12:00 30 I&O- Last 24 Hours up to 6 AM 08/05/16 06:00 Intake Total 1340 ml Balance 1340 ml CRISTOBAL ANGUIANO MD Aug 05, 2016 23:51
[2016-08-06] VITALS (7 sets, daily range): BP systolic 122–137; BP diastolic 64–84
[2016-08-06] MEDS: CEFEPIME HCL 2 GM in D5W MINI-BAG PLUS 50 ML IV SCH ×2 (04:48→16:23)
[2016-08-06] MEDS: HumaLOG INSULIN (NovoLOG) PER UNIT SC SCH ×4 (05:59→18:00)
[2016-08-06] MEDS: SODIUM CHLORIDE 0.9% INJ 10 ML SYR IV SCH ×2 (06:02→18:00)
[2016-08-06] MEDS: SLF 3 ML SYR IV SCH ×3 (06:02→20:13)
[2016-08-06 06:14] LABS: BASO # 0.1 K/mm3 (0.0-0.2); BASO % 0.6 % (0.0-1.0); EOS # 0.1 K/mm3 (0.0-0.50); EOS % 0.6 % (0.0-3.0); LARGE UNSTAINED CELL # 0.1 K/mm3 (0.0-0.4); LYMPH # 1.2 K/mm3 (1.5-4.5); LYMPH % 10.6 % (24.0-44.0); MEAN CORPUSCULAR HEMOGLOBIN 33.8 pg (27.0-33.0); MEAN CORPUSCULAR HGB CONC 34.3 g/dl (32.0-36.5); MEAN CORPUSCULAR VOLUME 98.7 fl (80.0-96.0); MONO # 0.7 K/mm3 (0.0-0.8); NEUTROPHILS # 8.4 K/mm3 (1.8-7.7); NEUTROPHILS % 80.3 % (36.0-66.0); PLATELET COUNT, AUTOMATED 434 k/mm3 (150-450); WHITE BLOOD COUNT 10.4 K/mm3 (4.0-10.0)
[2016-08-06 06:33] LABS: ALBUMIN 2.5 GM/DL (3.2-5.2); ALBUMIN/GLOBULIN RATIO 0.64 (1.00-1.93); ALKALINE PHOSPHATASE 87 U/L (45-117); ALT/SGPT 24 U/L (12-78); ANION GAP 12 MEQ/L (8-16); AST/SGOT 33 U/L (15-37); BILIRUBIN,TOTAL 1.1 MG/DL (0.2-1.0); BLOOD UREA NITROGEN 10 MG/DL (7-18); CARBON DIOXIDE LEVEL 27 MEQ/L (21-32); CHLORIDE LEVEL 90 MEQ/L (98-107); CREATININE FOR GFR 0.53 MG/DL (0.70-1.30); GLOMERULAR FILTRATION RATE > 60.0 (>49); GLUCOSE, FASTING 86 MG/DL (80-110); SODIUM LEVEL 129 MEQ/L (136-145); TOTAL PROTEIN 6.4 GM/DL (6.4-8.2)
--- NOTE | 2016-08-06 07:32 | IPNPDOC ---
Subjective Date Seen The patient was seen on 08/06/16. Subjective Chief Complaint/HPI The patient is a 65-year-old male admitted with a reason for visit of Community Acquired Pneumonia. Events since last encounter On-call attending was urgently called regarding Scott' declining respiratory status. Stat CXR was concerning for pulmonary edema, so IVF were DC. He was transferred to ICU due to increased WOB. Evaluation demonstrated mild-to- moderate increased WOB with diffuse rhonchi and transmitted upper airway sounds. 20mg lasix was ordered and subsequently 700 ml urine output noted. He is back on NC 1-2L to maintain sats in low mid to upper 90s. General: Reports: ROS Unobtainable Objective Physical Examination General Exam: Positive: Alert, No Acute Distress Eye Exam: Positive: PERRLA ENT Exam: Positive: Atraumatic Neck Exam: Positive: Supple Chest Exam: Positive: Other (transmitted upper airway ), Negative: Rales, Rhonchi Heart Exam: Positive: Rate Normal, Regular Rhythm Abdomen Exam: Positive: Normal bowel sounds, Soft Extremity Exam: Negative: Cyanosis, Edema Skin Exam: Positive: Nl turgor and temperature Assessment /Plan Problems (1) Pulmonary edema Status: Resolved Problem Text: Likely 2/2 to over-aggressive fluid resuscitation. Improved s/p 1d IV lasix. I've weaned his NC, and he's maintaining sats in the mid-90s. Repeat CXR demontrates resolution. Will initiate TPN slowly. He's stable to be transferred back to the floor. (2) Aspiration pneumonia Status: Acute Problem Specific Plan: Consult Specialist Problem Text: Aspiration precautions have been ordered and are essential to reduce risk of recurrence. Respiratory has agreed to perform deep suctioning Q4H and PRN on M/S floor as the majority of pt's congestion is upper airway and inability to clear secretions. WBC trending down. Sputum CX + for MSSA. On Cefepime D3. He received a PICC yesterday, and TPN has been ordered today. Will need to have PEG clamped for 10 days prior to advancing into J tube with IR (08/12). 08/02/16 case d/w patient's legal guardian, sister Tressa Yanez [phone])-she agrees with DNR/DNI-[id number] surrogate and MOLST forms completed-await court decision for official DNR order (3) Aspiration into airway Status: Chronic Response to Treatment: Uncontrolled Problem Text: He is s/p G-tube but needs G-J considering repeated aspiration. Aspiration precautions, elevate HOB >30 deg ordered. PICC placed on 08/05; TPN initiated 08/06 (4) PEG (percutaneous endoscopic gastrostomy) status Status: Acute Problem Text: 08/06 - PICC line insertion placed yesterday. TPN ordered for today. Will need to have PEG clamped for 10 days prior to advancing into J tube with IR (08/12) Recommendations from nutrition are for Jevity 45 cc/H Jevity 1.5 and + 800 cc FW divided q6H once GT is converted to GJ. (5) Seizure disorder Status: Chronic Problem Specific Plan: Monitor Clinically Problem Text: on HD Vimpat 50 BID via GT-OK to use per Dr. Acevedo. Plan/VTE VTE Prophylaxis Ordered?: No Plan/Urinary Catheter Reason for insertion/continuin: Critical Pt monitoring Plan Respiratory: Wean Oxygen Diagnostics: Check Labs Attending attestation: I saw and evaluated the patient, and I agree with the plan of care as discussed and documented by the resident. Madison Salter MD VS, I&O, 24H, [facility] Vital Signs/I&O Vital Signs Date Time Temp Pulse Resp B/P Pulse Ox O2 Delivery O2 Flow Rate FiO2 08/06/16 06:00 96 124/69 93 Nasal Cannula 1.0 08/06/16 04:00 97.4 24 I&O- Last 24 Hours up to 6 AM 08/06/16 06:00 Intake Total 1200 ml Output Total 1100 ml Balance 100 ml Laboratory Data 24H LABS Laboratory Tests 2 08/05/16 11:52: Bedside Glucose (Misc Panel) 114 08/05/16 17:49: Bedside Glucose (Misc Panel) 96 08/05/16 21:00: Arterial Blood pH 7.471H, Arterial Blood Partial Pressure CO2 35.1, Arterial Blood Partial Pressure O2 70.1L, Arterial Blood Total CO2 26.1, Arterial Blood HCO3 25.0, Arterial Blood Base Excess 1.7, Arterial Blood Oxygen Saturation 94.8L, Blood Gas Bicarbonate Standard 25.9 08/06/16 01:01: Bedside Glucose (Misc Panel) 97 08/06/16 05:44: Blood Urea Nitrogen 10, Creatinine 0.53L, Sodium Level 129L, Potassium Level 4.0 , Chloride Level 90L, Carbon Dioxide Level 27, Calcium Level 8.0L, Aspartate Amino Transf (AST/SGOT) 33, Alanine Aminotransferase (ALT/SGPT) 24, Alkaline Phosphatase 87, Total Bilirubin 1.1H, Total Protein 6.4, Albumin 2.5L, Albumin/ Globulin Ratio 0.64L, Anion Gap 12, White Blood Count 10.4H, Red Blood Count 3.42L, Hemoglobin 11.6L, Hematocrit 33.8L, Mean Corpuscular Volume 98.7H, Mean Corpuscular Hemoglobin 33.8H, Mean Corpuscular Hemoglobin Concent 34.3, Red Cell Distribution Width 13.0, Platelet Count 434, Neutrophils (%) (Auto) 80.3H, Lymphocytes (%) (Auto) 10.6L, Monocytes (%) (Auto) 7.0H, Eosinophils (%) (Auto) 0.6, Basophils (%) (Auto) 0.6, Neutrophils # (Auto) 8.4H, Lymphocytes # (Auto) 1.2L, Monocytes # (Auto) 0.7, Eosinophils # (Auto) 0.1, Basophils # (Auto) 0.1, Glomerular Filtration Rate > 60.0, Large Unclassified Cells # 0.1, Large Unclassified Cells % 1.0 CBC/BMP Laboratory Tests 08/06/16 05:44 Calcium Level 8.0 L, Aspartate Amino Transf (AST/SGOT) 33, Alanine Aminotransferase (ALT/SGPT) 24, Alkaline Phosphatase 87, Total Bilirubin 1.1 H, Total Protein 6.4, Albumin 2.5 L, Red Blood Count 3.42 L, Mean Corpuscular Volume 98.7 H, Mean Corpuscular Hemoglobin 33.8 H, Mean Corpuscular Hemoglobin Concent 34.3, Red Cell Distribution Width 13.0, Neutrophils (%) (Auto) 80.3 H, Lymphocytes (%) (Auto) 10.6 L, Monocytes (%) (Auto) 7.0 H, Eosinophils (%) (Auto ) 0.6, Basophils (%) (Auto) 0.6, Neutrophils # (Auto) 8.4 H, Lymphocytes # (Auto ) 1.2 L, Monocytes # (Auto) 0.7, Eosinophils # (Auto) 0.1, Basophils # (Auto) 0.1 Microbiology Microbiology 2/17/17 Blood Culture - Preliminary, Resulted No Growth after 72 hours. All specime... 08/02/16 Respiratory Virus Panel (PCR) (JABIER) - Final, Complete 08/02/16 Gram Stain - Final, Complete 08/02/16 Sputum Culture - Final, Complete Staphylococcus Aureus MADHAVI PEREZ DO Aug 06, 2016 07:32 MADISON SALTER MD Aug 11, 2016 11:59
--- NOTE | 2016-08-06 08:47 | REP ---
Clinical: Pulmonary edema. Comparison: 08/05/2016. Findings: Right PICC line is in stable position. Mediastinum and cardiac silhouette are normal. Lung novak demonstrate chronic changes with superimposed perihilar and lower lobe opacities (right greater than left) which may be minimally improved compared to prior examination. No new acute pleuroparenchymal process identified. No pneumothorax. Impression: Chronic changes with superimposed lower lobe opacities mildly improved. Signed by Jaydon Jacinto MD 08/06/2016 08:38 A
[2016-08-06] MEDS: MULTIVITAMINS PO SCH (08:54)
[2016-08-06] MEDS: LACOSAMIDE 50 MG TAB (VIMPAT) GT SCH ×2 (08:54→20:12)
[2016-08-06] MEDS: PANTOPRAZOLE 40MG INJ (PROTONIX) (C9113) IV SCH (08:54)
[2016-08-06] MEDS: LEVALBUTEROL 1.25 MG/0.5 ML CONCENTRATE NEB INH PRN (16:03)
[2016-08-06] MEDS: MORPHINE 2 MG/ML 1ML SYRINGE IV PRN (16:24)
[2016-08-06] MEDS ORDERED: FAT EMULSION IV 20% 500 ML IV SCH (18:00)
[2016-08-06] MEDS ORDERED: AMINO AC/ELECTROLYTE/DEX/CALC 2,000 ML IV SCH (18:00)
--- NOTE | 2016-08-07 00:06 | IPNPDOC ---
Date Seen The patient was seen on 08/06/16. Progress Note SUBJECTIVE: Evaluated patient. Rapid assessment was called for apneic episode witnessed by nursing staff. When I entered the room, patient had returned to baseline and was breathing. Pt has DNI/DNR signed in chart, but is still awaiting court approval. At this time, patient is full code. OBJECTIVE PHYSICAL EXAMINATION: VITAL SIGNS: Please see below. GENERAL: NAD CARDIOVASCULAR: RRR, no murmurs RESPIRATORY: Coarse sounds throughout ASSESSMENT AND PLAN: 65 y/o M with apneic episodes, currently resolved. Pt is full code at this time. Has returned to baseline according to nursing staff. We will check ABG and review when available. Dr. Esteban was paged on the patient and talked with hospitalist. We have confirmed that the patient is still full code awaiting court order. Patient's sister was notified about his status. GME ATTESTATION My preceptor for this patient encounter was physically present in the building during the encounter and was fully available. As needed, all aspects of the patient interview, examination, medical decision making process, and medical care plan development were reviewed and approved by the preceptor. Preceptor is aware and concurs with the plan as stated in the body of this note and will attest to such by his/her cosignature. VS, I&O, 24H, Fishbone Vital Signs/I&O Vital Signs Date Time Temp Pulse Resp B/P Pulse Ox O2 Delivery O2 Flow Rate FiO2 08/06/16 18:00 97.5 92 18 131/67 97 Nasal Cannula 08/06/16 11:00 2.0 I&O- Last 24 Hours up to 6 AM 08/06/16 05:59 Intake Total 1150 ml Output Total 1000 ml Balance 150 ml Laboratory Data 24H LABS Laboratory Tests 2 08/06/16 01:01: Bedside Glucose (Misc Panel) 97 08/06/16 05:44: Blood Urea Nitrogen 10, Creatinine 0.53L, Sodium Level 129L, Potassium Level 4.0 , Chloride Level 90L, Carbon Dioxide Level 27, Calcium Level 8.0L, Aspartate Amino Transf (AST/SGOT) 33, Alanine Aminotransferase (ALT/SGPT) 24, Alkaline Phosphatase 87, Total Bilirubin 1.1H, Total Protein 6.4, Albumin 2.5L, Albumin/ Globulin Ratio 0.64L, Anion Gap 12, White Blood Count 10.4H, Red Blood Count 3.42L, Hemoglobin 11.6L, Hematocrit 33.8L, Mean Corpuscular Volume 98.7H, Mean Corpuscular Hemoglobin 33.8H, Mean Corpuscular Hemoglobin Concent 34.3, Red Cell Distribution Width 13.0, Platelet Count 434, Neutrophils (%) (Auto) 80.3H, Lymphocytes (%) (Auto) 10.6L, Monocytes (%) (Auto) 7.0H, Eosinophils (%) (Auto) 0.6, Basophils (%) (Auto) 0.6, Neutrophils # (Auto) 8.4H, Lymphocytes # (Auto) 1.2L, Monocytes # (Auto) 0.7, Eosinophils # (Auto) 0.1, Basophils # (Auto) 0.1, Glomerular Filtration Rate > 60.0, Large Unclassified Cells # 0.1, Large Unclassified Cells % 1.0 08/06/16 05:52: Bedside Glucose (Misc Panel) 93 08/06/16 12:02: Bedside Glucose (Misc Panel) 74L 08/06/16 17:58: Bedside Glucose (Misc Panel) 76L CBC/BMP Laboratory Tests 08/06/16 05:44 Calcium Level 8.0 L, Aspartate Amino Transf (AST/SGOT) 33, Alanine Aminotransferase (ALT/SGPT) 24, Alkaline Phosphatase 87, Total Bilirubin 1.1 H, Total Protein 6.4, Albumin 2.5 L, Red Blood Count 3.42 L, Mean Corpuscular Volume 98.7 H, Mean Corpuscular Hemoglobin 33.8 H, Mean Corpuscular Hemoglobin Concent 34.3, Red Cell Distribution Width 13.0, Neutrophils (%) (Auto) 80.3 H, Lymphocytes (%) (Auto) 10.6 L, Monocytes (%) (Auto) 7.0 H, Eosinophils (%) (Auto ) 0.6, Basophils (%) (Auto) 0.6, Neutrophils # (Auto) 8.4 H, Lymphocytes # (Auto ) 1.2 L, Monocytes # (Auto) 0.7, Eosinophils # (Auto) 0.1, Basophils # (Auto) 0.1 Microbiology Microbiology 08/02/16 Blood Culture - Preliminary, Resulted No Growth after 72 hours. All specime... 08/02/16 Respiratory Virus Panel (PCR) (JABIER) - Final, Complete 08/02/16 Gram Stain - Final, Complete 08/02/16 Sputum Culture - Final, Complete Staphylococcus Aureus EMETERIO JORDAN DO Aug 07, 2016 00:06 DINA OJEDA MD Aug 07, 2016 00:47
[2016-08-07 00:35] LABS: ABG BASE EXCESS 3.8 (-2.0-2.0); ABG HCO3 34.3 MEQ/L (22.0-26.0); ABG PARTIAL PRESSURE CO2 88.4 mmHg (35.0-45.0); ABG STANDARD HCO3 27.9 MEQ/L (22.0-26.0); ABG pH (ARTERIAL) 7.207 UNITS (7.350-7.450)
[2016-08-07] MEDS: HumaLOG INSULIN (NovoLOG) PER UNIT SC SCH ×3 (00:51→12:52)
[2016-08-07 01:00] VITALS: BP 137/70
[2016-08-07] MEDS: CEFEPIME HCL 2 GM in D5W MINI-BAG PLUS 50 ML IV SCH (04:52)
[2016-08-07] MEDS: SODIUM CHLORIDE 0.9% INJ 10 ML SYR IV SCH (05:23)
[2016-08-07] MEDS: SLF 3 ML SYR IV SCH ×2 (05:23→14:00)
[2016-08-07 06:00] VITALS: BP 118/62
[2016-08-07 07:05] LABS: BASO # 0.1 K/mm3 (0.0-0.2); BASO % 0.6 % (0.0-1.0); EOS # 0.1 K/mm3 (0.0-0.50); LARGE UNSTAINED CELL # 0.1 K/mm3 (0.0-0.4); LARGE UNSTAINED CELL % 1.1 % (0.0-4.0); LYMPH # 1.2 K/mm3 (1.5-4.5); LYMPH % 10.5 % (24.0-44.0); MEAN CORPUSCULAR HEMOGLOBIN 33.8 pg (27.0-33.0); MEAN CORPUSCULAR HGB CONC 33.2 g/dl (32.0-36.5); MEAN CORPUSCULAR VOLUME 101.8 fl (80.0-96.0); MONO # 0.6 K/mm3 (0.0-0.8); NEUTROPHILS # 8.5 K/mm3 (1.8-7.7); NEUTROPHILS % 80.8 % (36.0-66.0); PLATELET COUNT, AUTOMATED 463 k/mm3 (150-450); WHITE BLOOD COUNT 10.5 K/mm3 (4.0-10.0)
[2016-08-07 07:17] LABS: ALBUMIN 2.3 GM/DL (3.2-5.2); ALBUMIN/GLOBULIN RATIO 0.59 (1.00-1.93); ALKALINE PHOSPHATASE 82 U/L (45-117); ALT/SGPT 22 U/L (12-78); ANION GAP 6 MEQ/L (8-16); AST/SGOT 24 U/L (15-37); BILIRUBIN,TOTAL 0.4 MG/DL (0.2-1.0); BLOOD UREA NITROGEN 24 MG/DL (7-18); CALCIUM LEVEL 8.3 MG/DL (8.8-10.2); CARBON DIOXIDE LEVEL 33 MEQ/L (21-32); CHLORIDE LEVEL 90 MEQ/L (98-107); CREATININE FOR GFR 0.62 MG/DL (0.70-1.30); GLOMERULAR FILTRATION RATE > 60.0 (>49); GLUCOSE, FASTING 135 MG/DL (80-110); POTASSIUM SERUM 4.6 MEQ/L (3.5-5.1); SODIUM LEVEL 129 MEQ/L (136-145); TOTAL PROTEIN 6.2 GM/DL (6.4-8.2)
[2016-08-07] MEDS: PANTOPRAZOLE 40MG INJ (PROTONIX) (C9113) IV SCH (09:31)
[2016-08-07] MEDS: MORPHINE 2 MG/ML 1ML SYRINGE IV PRN (09:32)
[2016-08-07] MEDS: LACOSAMIDE 50 MG TAB (VIMPAT) GT SCH (09:32)
[2016-08-07] MEDS: MULTIVITAMINS PO SCH (09:32)
[2016-08-07] MEDS: LEVALBUTEROL 1.25 MG/0.5 ML CONCENTRATE NEB INH PRN (10:56)
[2016-08-07 11:01] VITALS: O2SAT 92
[2016-08-07] MEDS ORDERED: SUCCINYLCHOLINE INJ 200 MG/10 ML VIAL (J0330) As Ordered ONE (11:53)
[2016-08-07] MEDS ORDERED: ETOMIDATE INJ 20MG/10ML VIAL As Ordered ONE (11:53)
[2016-08-07 12:00] VITALS: BP 137/76
--- NOTE | 2016-08-07 12:30 | REP ---
Clinical: Hypoxia. Comparison: 08/06/2016. Findings: Right PICC line with tip in the SVC/right atrium. Mediastinum and cardiac silhouette normal. Lung novak demonstrate chronic interstitial changes with suspected superimposed bibasilar atelectasis which may be slightly improved compared to prior examination. No definite effusion. No pneumothorax. Skeletal structures stable. Impression: Chronic changes with mildly improved superimposed bibasilar atelectasis. Signed by Jaydon Jacinto MD 08/07/2016 12:22 P
[2016-08-07 13:00] VITALS: BP 76/49
--- NOTE | 2016-08-07 14:01 | IPN ---
DATE: 08/07/2016 NOTE: I attended the Max [facility] on Mr. Scott Kumari. Mr. Kumari is well known to the intensive care unit (ICU) from his frequent recent admissions there. When he has been in the intensive care unit (ICU), he has had "guppy" breathing and has had difficulty with secretions. He had been stable in the intensive care unit (ICU) for 2 to 3 days with every 4 hour suctioning and he was felt stable to move to the floor and in fact an arrangement had been made with respiratory to make certain that he was suctioned every four hours. There was a rapid response last night because of decreased saturations which responded to suctioning and more vigorous attempts to prevent this from happening, such as using the vest and CPT. This morning, his saturations dropped to the 40s, resulting in a Max Cart call. Upon arrival, his actual breathing appearance was no different than it had been in the intensive care unit. He had "guppy-like" quality to it and with accessory muscle usage. In fact, he had this appearance when he has had multiple normal blood gases. This time he had what initially appeared to be less effective respirations. He had a good blood pressure with a systolic in the 120s and palpable pedal pulses. He was suctioned orally and large thick secretions mixed with heme were evacuated. He then was able to oxygenate by face mask. He was moved to the intensive care unit (ICU). It is presumed that he had hypercapnia and It was felt best to place him on noninvasive mechanical ventilation. He has been placed on noninvasive mechanical ventilation with an IPAP of 16 and PEEP of 4 and a rate of 20. On this, he is achieving tidal volumes of 450 to 550. He is oxygenating well on FiO2 of 0.4 with saturations in the 90th percentile. He appears very comfortable on this modality. He appears to possibly be more awake, though it is difficult to assess that because of his severe mental retardation. The process to have him make him DO NOT RESUSCITATE, DO NOT INTUBATE and comfort measures only has been in the process for two weeks. The paperwork was again completed and hopefully we will hear in the next few hours whether we can allow him to have a natural . He is cachectic. He is nothing by mouth. He is essentially noninteractive to his environment. He did not tolerate a G-tube and he continues to aspirate secretions and possibly reflux despite being nothing by mouth for several days and on TPN. Placement of a J-tube is not likely to make a significant difference. MTDD
[2016-08-07] MEDS ORDERED: SCOPOLAMINE 1.5 MG TRANSDERMAL TOP SCH (15:00)
[2016-08-07] MEDS ORDERED: MORPHINE 2 MG/ML 1ML SYRINGE IV PRN ×2 (15:15→17:00)
[2016-08-07] MEDS: LORazepam 2 MG/ML VIAL (J2060) IV PRN ×2 (16:13→18:07)
--- NOTE | 2016-08-16 14:24 | DS.PDOC ---
Discharge Summary General Date of Admission Jul 21, 2016 at 13:46 Date of Discharge Aug 07, 2016 at 19:30 Primary Care Physician: Phoenix Melendez MD Attending Physician: MADISON THOMAS MD Specialist/Consultants Involve: ZAC SANCHEZ Specialist/Consultants Involve Dr. Brown Discharge Summary PROCEDURES PERFORMED DURING STAY: PEG tube, PICC line, intubation ADMITTING DIAGNOSES: 1. Community-acquired pneumonia 2. Chronic obstructive respiratory failure secondary to chronic aspiration 3. Severe protein calorie malnutrition, with cachexia 4. Profound mental retardation 5. Senile dementia 6. Expressive language disorder 7. Degenerative disc disease 8. Down syndrome DISCHARGE DIAGNOSES: 1. Cardiac arrest secondary to acute on chronic hypoxic respiratory failure 2. Community-acquired pneumonia 3. Aspiration pneumonitis 2. Acute pulmonary edema, secondary to cor pulmonale 3. Chronic obstructive respiratory failure secondary to chronic aspiration 4. Severe protein calorie malnutrition, with cachexia 5. Profound mental retardation 6. Senile dementia 7. Expressive language disorder 8. Degenerative disc disease 9. Down syndrome COMPLICATIONS/CHIEF COMPLAINT: Community Acquired Pneumonia. HISTORY OF PRESENT ILLNESS/ Hospital course: Patient was a 65-year-old [facility] client with a past medical history of profound mental retardation, senile dementia, expressive language disorder, degenerative disc disease, Down syndrome, Raynaud's disease, COPD, myopathy, and chronic aspiration who was admitted 07/21/2016 for acute on chronic chronic hypoxic respiratory failure secondary to continue acquired pneumonia. However, during his course of treatment, the patient aspirated and developed acute aspiration pneumonitis. The patient was intubated 07/25/2016. Due to continued aspiration, it was decided to consult Dr. Gracia to place a PEG tube. A PICC line was inserted for TPN while awaiting PEG placement. Patient was extubated 07/30/2016 , and tube feeds are restarted. However, patient's work of breathing continued to deteriorate, and a rapid response was called on 08/05/16. At that time, his condition was discussed with his sister, who indicated that she did not want him to have heroic measures. She expressed desire to place him on comfort care. MOLST form was filled out, and approved by legal. 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 PHYSICAL EXAMINATION ON DISCHARGE: VITAL SIGNS: Vital signs absent GENERAL: Lewis, lying peacefully HEENT: Eyes closed NECK: No palpable carotid pulses CARDIOVASCULAR EXAMINATION: No heartbeat by auscultation RESPIRATORY EXAMINATION: No breath sounds by auscultation ABDOMINAL EXAMINATION: PEG tube in place EXTREMITIES: Cachectic SKIN: No rashes or lesions NEUROLOGICAL EXAMINATION: No blink reflex LABORATORY DATA: Please see below. DISCHARGE PLAN: [place] [facility] [place]: 20 . DISCHARGE CONDITION: TIME SPENT ON DISCHARGE: Less than 30 minutes. Discharge Medications Scheduled Acetaminophen (Acetaminophen) 500 Mg Tab 500 MG PO BID (Reported) Artificial Tears (Artificial Tears 83-15 %) 1 Dose/3.5 Gm Oint 1 DOSE OU QHS ( Reported) Calcium/Vitamin D (Calcium 600/Vitamin D 600-400 mg-Unit) 1 Tab Tab 1 TAB PO BID (Reported) Cholecalciferol (Vitamin D3) 1,000 Unit Tab 1,000 UNIT PO DAILY (Reported) Citalopram Hydrobromide (Celexa) 10 Mg Tab 10 MG PO DAILY (Reported) Pacific Tar (Pc-Tar 1% Shampoo) 1 Dose/180 Ml Sham 1 DOSE TOP 2XWK (Reported) TUES, SAT, WITH SHOWER Lacosamide (Vimpat) 50 Mg Tab 50 MG PO BID (Reported) Multivitamins *[facility] STOCK[facility]* (Thera M Plus *[facility]OCK[facility]*) 1 Tab Tab 1 TAB PO DAILY (Reported) Polyethylene Glycol (Miralax) 1 Pow Pow 17 GM PO DAILY (Reported) Senna (Senna) 8.6 Mg Cap 3 CAP PO QHS (Reported) Trazodone HCl (Trazodone HCl) 50 Mg Tab 50 MG PO QHS (Reported) Scheduled PRN ([Bag [place]]) 1 DOSE TOP ASDIRECTED PRN PRN EXCORIATIONS (Reported) USE NEEDED FOR EXCORIATIONS, APPLIED TOPICALLY TO RECTAL AND GROIN AREA TO PREVENT AND TREAT EXCORIATIONS Bisacodyl (Dulcolax) 10 Mg [address] DAILYPRN PRN PRN CONSTIPATION (Reported ) EVERY 4TH DAY WITHOUT BM Milk Of Magnesia (Milk of Magnesia) 1,200 Mg/15 Ml Patricia 30 ML PO Q3DP PRN PRN CONSTIPATION (Reported) Sodium Phosphate/Biphosphate (Fleet Enema 7-19 gm/118Ml) [address] DAILYPRN PRN PRN CONSTIPATION (Reported) DAY 5 WITH NO BM Allergies Coded Allergies: Quinolones (Verified Allergy, Intermediate, RASH, 09/17/12) Antihistamines, Chlorpheniramine-ty (Verified Allergy, Unknown, 03/23/14) Antihistamines, Diphenhydramine-typ (Verified Allergy, Unknown, 03/23/14) Antihistamines, Loratadine-type (Verified Allergy, Unknown, 03/23/14) Aspirin (Unverified Allergy, Unknown, 09/17/12) Erythromycin (Unverified Allergy, Unknown, 09/17/12) Penicillins (Unverified Allergy, Unknown, 09/17/12) Pseudoephedrine (Unverified Allergy, Unknown, 09/17/12) TAPE (Unverified Adverse Reaction, Severe, ALL TAPES CAUSE WELTS PER [facility] STAFF, 03/23/14) MADISON THOMAS MD Aug 16, 2016 14:24
== END 2016-08-07 19:30 | disposition expired | DRG 207 ==
LOC: M ED 08:57 → M ED INP 13:46 → M PCU 16:40 → M ICU 07-22 15:10 → M PCU 07-31 17:09 → M MSPAV 08-01 17:24 → M ICU 08-02 09:08 → M MSPAV 08-05 02:15 → M ICU 08-05 23:51 → M MS5PR 08-06 10:46 → M ICU 08-07 12:02 → M MSPAV 08-07 15:59
PROVIDERS: ADMIT Family Medicine; ATTEND Family Medicine
PROC: 0BH18EZ Insertion of Endotracheal Airway into Trachea, Via Natural or Artificial Opening Endoscopic (ICD-10-PCS; 2016-07-22)
PROC: 0BJ08ZZ Inspection of Tracheobronchial Tree, Via Natural or Artificial Opening Endoscopic (ICD-10-PCS; 2016-07-22)
PROC: 3E1F88Z Irrigation of Respiratory Tract using Irrigating Substance, Via Natural or Artificial Opening Endoscopic (ICD-10-PCS; 2016-07-22)
PROC: 5A1955Z Respiratory Ventilation, Greater than 96 Consecutive Hours (ICD-10-PCS; principal; 2016-07-25)
PROC: 0BH17EZ Insertion of Endotracheal Airway into Trachea, Via Natural or Artificial Opening (ICD-10-PCS; 2016-07-25)
PROC: 0DH68UZ Insertion of Feeding Device into Stomach, Via Natural or Artificial Opening Endoscopic (ICD-10-PCS; 2016-07-29)
PROC: 05HB33Z Insertion of Infusion Device into Right Basilic Vein, Percutaneous Approach (ICD-10-PCS; 2016-08-05)
PROC: 3E0336Z Introduction of Nutritional Substance into Peripheral Vein, Percutaneous Approach (ICD-10-PCS; 2016-08-06)
DX: J69.0 Pneumonitis due to inhalation of food and vomit (principal); J96.01 Acute respiratory failure with hypoxia; E43 Unspecified severe protein-calorie malnutrition; E87.0 Hyperosmolality and hypernatremia; F73 Profound intellectual disabilities; R91.1 Solitary pulmonary nodule; K05.6 Periodontal disease, unspecified; E86.0 Dehydration; Z51.5 Encounter for palliative care; M81.0 Age-related osteoporosis without current pathological fracture; Z66 Do not resuscitate; M51.36 Other intervertebral disc degeneration, lumbar region; E78.5 Hyperlipidemia, unspecified; G40.909 Epilepsy, unspecified, not intractable, without status epilepticus; I95.9 Hypotension, unspecified; E87.6 Hypokalemia; I73.00 Raynaud's syndrome without gangrene; T17.920A Food in respiratory tract, part unspecified causing asphyxiation, initial encounter; K81.9 Cholecystitis, unspecified; E83.39 Other disorders of phosphorus metabolism; Q90.9 Down syndrome, unspecified; Z79.899 Other long term (current) drug therapy; Z79.2 Long term (current) use of antibiotics; Z88.2 Allergy status to sulfonamides; Z88.0 Allergy status to penicillin; Z88.6 Allergy status to analgesic agent; Z91.048 Other nonmedicinal substance allergy status; Y92.230 Patient room in hospital as the place of occurrence of the external cause